=== PATIENT | male | born 1975 | race Caucasian/White ===

== ENCOUNTER 2022-11-23 15:34 | Outpatient (AMB) | payer BC, SELFPAY ==
[2022-11-23 15:45] VITALS: BP 132/98; PULSE 65; O2SAT 100; BMI 28.6
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
== END 2022-11-23 16:51 | disposition home or self-care (01) ==
PROVIDERS: PCP Nurse Practitioner Family; Visit Provider Nurse Practitioner Family
DX: F32.89 Other specified depressive episodes (principal); F41.9 Anxiety disorder, unspecified; R22.9 Localized swelling, mass and lump, unspecified; M25.522 Pain in left elbow; M54.2 Cervicalgia; M54.9 Dorsalgia, unspecified
CPT/HCPCS: 99204

== ENCOUNTER 2022-12-07 09:33 | Outpatient (REF) | payer BC, SELFPAY ==
--- NOTE | ~2022-12-07 | XR_ITS ---
EXAMINATION: XR ELBOW, LEFT CLINICAL INFORMATION: Pain COMPARISON: None available. TECHNIQUE: AP, lateral, and oblique views of the left elbow. FINDINGS: No acute fracture or dislocation. Joint spaces are maintained. Triceps tendon enthesopathy. Soft tissues are unremarkable. No joint effusion. XR/XR elbow LT min 3V IMPRESSION: Triceps tendon enthesopathy.
[2022-12-07 09:52] LABS: MANUAL DIFF FLAG NO
[2022-12-07 10:00] LABS: Basophils Percent Auto 0.5 % (0-2); Eosinophils Absolute Auto 0.2 X10*3/uL (0.0-0.4); Eosinophils Percent Auto 3.9 % (0-4); Hematocrit 42.4 % (42.0-52.0); Hemoglobin 14.5 g/dl (14.0-18.0); Imm Gran Abs Auto 0.02 X10*3/uL (0.00-0.03); Imm Gran Pct Auto 0.3 % (0.0-0.4); Lymphocytes Percent Auto 32.6 % (20-40); Mean Corpuscular HGB Conc 34.2 g/dl (31.0-36.0); Mean Corpuscular Volume 87.6 fL (80.0-98.0); Mean Platelet Volume 10.7 fL (9.4-12.4); Monocytes Absolute Auto 0.5 X10*3/uL (0.1-1.2); Neutrophils Absolute Auto 3.4 x10*3/uL (2.0-8.3); Neutrophils Percent Auto 54.7 % (45-73); Platelet Count 197 X10*3/uL (160-400); Red Blood Count 4.84 X10*6/uL (4.60-5.80); Red Cell Distribution Width 13.5 % (11.0-16.0); White Blood Count 6.1 X10*3/uL (4.8-10.8)
[2022-12-07 11:04] LABS: Alanine Aminotransferase 27 U/L (0-40); Albumin Level 4.1 g/dL (3.5-5.0); Alkaline Phosphatase 92 U/L (39-117); Anion Gap 10 (12-20); Aspartate Amino Transferase 27 U/L (5-37); Bilirubin Total 0.5 mg/dL (0.0-1.0); Blood Urea Nitrogen 8 mg/dL (9-16); Calcium 9.2 mg/dL (8.4-10.2); Carbon Dioxide 29 mmol/L (22-29); Chloride 106 mmol/L (96-108); Cholesterol 196 mg/dL; Estimated Glomerular Filt Rate > 60; Glucose Fasting 94 mg/dL (60-99); HDL Cholesterol 44 mg/dL; LDL Cholesterol Calculated 134 mg/dl; Potassium 4.4 mmol/L (3.3-5.1); Sodium 141 mmol/L (135-145); Triglycerides 92 mg/dL
[2022-12-07 11:09] LABS: TSH reflex Free T4 4.28 uIU/mL (0.32-4.0); Vitamin D 25-OH Total 49.8 ng/mL (>30)
[2022-12-07 11:28] LABS: Folate 11.2 ng/mL (> or = 4.0); Vitamin B12 832 pg/mL (200-900)
[2022-12-07 12:19] LABS: Free T4 (Free Thyroxine) 0.83 ng/dL (0.71-1.85)
== END 2022-12-07 09:34 | disposition home or self-care (01) ==
LOC: HO.XRAY 09:33
PROVIDERS: PCP Nurse Practitioner Family; Visit Provider Nurse Practitioner Family
DX: M25.522 Pain in left elbow (principal); Z76.89 Persons encountering health services in other specified circumstances; Z86.19 Personal history of other infectious and parasitic diseases; R94.6 Abnormal results of thyroid function studies; M47.812 Spondylosis without myelopathy or radiculopathy, cervical region; F32.A Depression, unspecified; F41.9 Anxiety disorder, unspecified
CPT/HCPCS: 36415; 73080; 80053; 80061; 82306; 82607; 82746; 84439; 84443; 85025

== ENCOUNTER 2022-12-11 15:49 | Outpatient (AMB) | payer BC, SELFPAY ==
--- NOTE | 2022-12-11 15:59 | MHC.OFFVIS ---
Intake Vital Signs 12/11/22 16:07 Height 6 ft Weight 212 lb 6 oz BMI 28.8 BP 139/86 Blood Pressure Location Lt brachial Position Sitting Pulse 68 Intake Visit Reasons: lipoma Intake Note: Patient is seen in office for evaluation and treatment of multiple lipoma. Patient c/o: multiple lipomas for yrs, bilateral hips, right forearm, right finger, couple in the stomach, most painful ones are the right hip and stomach, denies redness, discharge, swelling or any other concerns Manager Cafe Required: No Accompanied by: Self / Same As Patient Allergies Otezla Adverse Reaction (Severe, Uncoded 12/11/22 16:00) itching Medication List - Last Reconciled 12/11/22 by Manfred Chau MD cyclobenzaprine 5 mg PO TID PRN guselkumab (Tremfya) mg subcut hydrocodone-acetaminophen 10-325 mg tabs PO hydroxyzine HCl 10 mg PO TID PRN ibuprofen 600 mg PO Q8H PRN HPI lipoma HPI Details 47-year-old male referred for lipomas. He says that he has had lumps all over his body and had some removed in the past He points to a lipoma on the right forearm and the left and right hips and wants this removed because of the size. He denies any other complaints otherwise. [facility] Medical History (Updated 12/11/22 @ 16:12 by Manfred Chau MD) Fracture of T12 vertebra Fractured skull History of Lyme disease Lipoma Multiple lipomas Surgical History History of skin surgery Previous back surgery Family History Mother No problems noted. Father Hypertension Social History Housing: Apartment Patient Tobacco Use Status: Current everyday Tobacco user Cigarette Packs Per Day: 0.5 service: No Current occupational status: employed Cognitive needs: Yes Hearing needs: No Vision needs: No Review of Systems Const Denies chills and Denies fever(s) Card Denies chest pain, Denies dyspnea and Denies dyspnea on exertion Resp Denies cough, Denies dyspnea and Denies dyspnea on exertion GI Denies hematochezia and Denies change in bowel habits Denies hematuria and Denies difficulty urinating Musc Denies back pain and Denies limited range of motion Neuro Denies focal weakness and Denies convulsions Psych Denies depression and Denies mood swings Physical Exam Const General: comfortable and no acute distress Orientation/consciousness: patient oriented x3 Neck Neck: Yes no lymphadenopathy Resp Auscultation: clear to auscultation bilaterally Cardio Rhythm: regular rhythm GI Other: Right hip with a lipomatous mass, well-defined, about 3 cm in size. Left hip with a lipomatous mass, about 2 cm in size Palpation (GI): Soft to palpation, nontender and no guarding Neuro General: patient oriented x3 Extrem Other: Right forearm with the lipomatous mass, about 1.5 cm in size, well-defined Assessment & Plan Assessment & Plan (1) Multiple lipomas: Code(s): D17.9 - Benign lipomatous neoplasm, unspecified Plan: He wants the lipoma on the right forearm, and left and right hips removed. I explained to him the technique of excision. I reviewed the risks including but not limited bleeding, infections, poor healing, as the benefits and alternatives. This will be done under local anesthesia. This will be scheduled on his next visit here in the office. Coding Level of Care Code New Pt Level 3 (50781) Diagnoses Multiple lipomas D17.9
[2022-12-11 16:07] VITALS: BP 139/86; PULSE 68; BMI 28.8
== END 2022-12-11 16:18 | disposition home or self-care (01) ==
PROVIDERS: PCP Nurse Practitioner Family; Visit Provider Surgery
DX: D17.9 Benign lipomatous neoplasm, unspecified (principal)
CPT/HCPCS: 99203

== ENCOUNTER → 2022-12-11 15:49 | Outpatient (BNVA) | payer BC, SELFPAY | PROVIDERS: PCP Nurse Practitioner Family; Visit Provider Surgery ==

== ENCOUNTER 2022-12-18 14:19 | Outpatient (AMB) | payer BC, SELFPAY ==
--- NOTE | 2022-12-18 14:40 | MHC.OFFVIS ---
Intake Vital Signs 12/18/22 14:42 Height 6 ft Weight 212 lb BMI 28.7 BP 114/82 Blood Pressure Location Lt brachial Position Sitting Respiration 14 Pulse 70 Pulse Source Pulse Oximeter Pulse Oximetry (%) 96 Oxygen Delivery Method Room Air Intake Visit Reasons: Dorsalgia, unspecified Allergies Otezla Adverse Reaction (Severe, Uncoded 12/18/22 14:40) itching Medication List - Last Reconciled 12/18/22 by Nakia Irving LPN cyclobenzaprine 5 mg PO TID PRN guselkumab (Tremfya) mg subcut hydrocodone-acetaminophen 10-325 mg tabs PO hydroxyzine HCl 10 mg PO TID PRN ibuprofen 600 mg PO Q8H PRN HPI Dorsalgia, unspecified HPI Details 47-year-old male is presenting today for a new patient evaluation of Dorsalgia. The patient was referred by Kaela Cedeno. The patient?s medical history is significant for psoriasis (followed by [facility]), neck pain - Worker's Comps (worked at [employer] in [place] in 2010, followed by Dr. Field at [facility]), carpal tunnel syndrome of both sites, left elbow pain, anxiety, depression, and low back pain. His neck and back pain started in 2010. The pain is rated at 7-10/10 in intensity. It as an aching sensation in his neck, radiating to the left shoulder and numbness and pins and needles sensation in his left upper extremity. He also complains of aching and numbness associated with pins and needles sensation in his right hand and left lower extremity starting from the lower back. It is constant that interferes with his usual activities. He had three lumbar spine surgeries in 2000, 2019, 2020 and most recent was performed by Dr. Gaytan. The patient had epidural steroid injection in the past with minimal benefits. He has tried physical therapy in the past. He has mild numbness and paresthesia in his left toes and the 1st to 3rd fingers on both hands. The pain is worse with activity and occasionally when lying down. 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 The patient was on hydrocodone-acetaminophen P.R.N. prescribed by his past primary care physician. The patient has worker?s compensation insurance. [facility] Medical History (Updated 12/21/22 @ 14:34 by Alberto Cummings MD) Fracture of T12 vertebra Fractured skull History of Lyme disease Lipoma Multiple lipomas Surgical History History of skin surgery Previous back surgery Family History Mother No problems noted. Father Hypertension Social History Housing: Apartment Patient Tobacco Use Status: Current everyday Tobacco user Cigarette Packs Per Day: 0.5 service: No Current occupational status: employed Cognitive needs: Yes Hearing needs: No Vision needs: No Review of Systems Const All systems reviewed & are unremarkable except as noted in HPI and below Physical Exam Vital Signs: Last Vital Signs Pulse 70 12/18/22 14:42 Resp 14 12/18/22 14:42 BP 114/82 12/18/22 14:42 Pulse Ox 96 12/18/22 14:42 Oxygen Delivery Method Room Air 12/18/22 14:42 BMI result Body Mass Index 28.7 General: Appears afebrile. Alert and oriented. Mood and affect appropriate. Follows and participates in conversation appropriately. Respiratory effort is unlabored. Able to transition from sit to stand unassisted. Ambulates with bilaterally normal heel strike and toe off. Spine: Well-healed midline incision in the lumbar area. There was mild tenderness to palpation in the paraspinal area. Lumbar extension is intact without significant reduction of pain. Lumbar flexion reproduces reticular pain down the left lower extremity. Cervical neck extension reproduces mild pain. Facet loading on the left side reproduces pain. Facet loading on right side does not reproduces pain. Results Reviewed Results Reviewed: 12/07/22: XR ELBOW, LEFT FINDINGS: No acute fracture or dislocation. Joint spaces are maintained. Triceps tendon enthesopathy. Soft tissues are unremarkable. No joint effusion. IMPRESSION: Triceps tendon enthesopathy. 10/12/20: MR LUMBAR SPINE. 12/15/2019: MR - CERVICAL SPINE FINDINGS: ALIGNMENT, VERTEBRAE, MARROW, AND DISCS: There is slight reversal of the normal cervical lordosis without subluxation. Vertebral body heights are preserved. There is mild disc space narrowing at C5-6 and C6-7 with small anterior osteophytes, progressed since 2017. Bone marrow signal is normal. POSTERIOR FOSSA AND CORD: The visualized posterior fossa and cervicomedullary junction are normal. The cervical cord is normal in caliber and signal throughout. PARASPINAL TISSUES: Surrounding cervical soft tissues are normal. Flow voids are preserved in the dominant cervical vessels. DETAILED FINDINGS BY LEVEL: C2-C3: There is no canal or neural foraminal stenosis. C3-C4: There is a tiny central protrusion without significant canal stenosis. There is mild left neural foraminal stenosis from uncovertebral spurring. C4-C5: There is a tiny central protrusion without canal or neural foraminal stenosis. C5-C6: There is disc osteophyte asymmetric to the left causing mild canal stenosis. A left paracentral protrusion is also seen along with uncovertebral spurring resulting in moderate left neural foraminal stenosis, slightly worse than prior. The right neural foramen is patent. C6-C7: There is disc osteophyte asymmetric to the left causing mild canal stenosis. The right neural foramen is patent. There is severe left neural foraminal stenosis due to uncovertebral spurring with probably compression of the exiting left C7 nerve root. This is worse than prior. C7-T1: There is no canal or neural foraminal stenosis. IMPRESSION: 1. Degenerative changes at C5-6 and C6-7 have progressed since 11/01/2016 with mild canal stenosis at both levels. There is moderate left neural foraminal stenosis at C5-6 and severe left neural foraminal stenosis at C6-7 with probable compression of the exiting left C7 nerve root. Assessment & Plan Assessment & Plan (1) Cervical spondylosis: Code(s): M47.812 - Spondylosis without myelopathy or radiculopathy, cervical region Plan Discussed diagnostic injections vs. RFA vs. peripheral nerve stimulators as possible treatment options. Will schedule him for left C4-C5-C6 medial branch block. Discussed the risks and benefits of the procedure with the patient in detail. All questions were answered. The patient is on board with the plan. We will file a PA for approval and keep him updated. Justification for interventional therapy: ? Patient with average pain > 6/10 ? Patient has exhausted conservative therapy including physical therapy, oral medication, opioid therapy, steroid injections, and surgical interventions. Scribed for Dr. Cummings by Jose Lackey medical device sales consultant, on 12/18/2022. I, Dr. Cummings, have personally reviewed and agree with the information entered by the [facility]. Coding Level of Care Code New Pt Level 4 (54149) Diagnoses Cervical spondylosis M47.812
[2022-12-18 14:42] VITALS: BP 114/82; PULSE 70; RESP 14; O2SAT 96; BMI 28.7
== END 2022-12-18 15:02 | disposition home or self-care (01) ==
PROVIDERS: PCP Nurse Practitioner Family; Visit Provider Internal Medicine
DX: M47.812 Spondylosis without myelopathy or radiculopathy, cervical region (principal)
CPT/HCPCS: 99204

== ENCOUNTER → 2022-12-18 14:19 | Outpatient (BNVA) | payer BC, SELFPAY | PROVIDERS: PCP Nurse Practitioner Family; Visit Provider Internal Medicine ==

== ENCOUNTER 2023-01-12 14:20 | Outpatient (AMB) | payer BC, SELFPAY ==
[2023-01-12 14:23] VITALS: BMI 28.7
--- NOTE | 2023-01-12 14:23 | A.OFFVIS_ITS ---
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 Patient recall he fell 2 yrs ago and felt something pull. He didn't seek medical care. Currently states his pain is in his lateral and medial aspect of elbow. States pain is triggered with heavy lifting and over use. At times his elbow feels itchy. Denies any past injection or therapy. 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 The patient was see by his PCP on 11/23/2022 where he reports chronic left elbow pain for 7 months, since 04/2022, with no known injury. While in the office today he states that about 2 years ago (2020) he felt something pull in his left elbow. At the time he did not seek medical attention. He reports his pain is on the medial and lateral aspect of the left elbow. He claims his pain is triggered by heavy lifting and over use of the left upper extremity. He states his elbow feels itchy. He denies a history of cortisone injections or physical therapy. [facility] Medical History (Updated 01/12/23 @ 14:53 by Lacey Lopez) Multiple lipomas Lipoma History of Lyme disease Fractured skull Fracture of T12 vertebra Surgical History History of skin surgery Previous back surgery Family History Mother No problems noted. Father Hypertension Social History (Updated 01/12/23 @ 14:31 by [facility] Housing: Apartment Patient Tobacco Use Status: Current everyday Tobacco user Cigarette Packs Per Day: 0.5 service: No Current occupational status: employed Current occupation: [employer]/ rt hand Cognitive needs: Yes Hearing needs: No Vision needs: No Review of Systems Const All systems reviewed & are unremarkable except as noted in HPI and below Physical Exam Vital Signs: BMI result Body Mass Index 28.7 Const General: cooperative and no acute distress Orientation/consciousness: patient oriented x3 Resp Effort & Inspection: normal respiratory effort and able to speak in complete s entences Cardio Rate: regular rate Peripheral pulses: Peripheral pulses 2+ throughout GI Palpation (GI): Soft to palpation Skin General skin exam: no rashes or lesions noted Lesions: no lesions Rashes: no rashes Neuro General: patient oriented x3 Extrem Other: Left elbow normal to inspection. No acchymosis, erythema, edema. Lateral epicondyle tenderness to palpation. Mild medial epicondyle. No laxity with varus or valgus stress. Full ROM. NVI. Office Procedures Joint Injection/Drain Joint Injection/Drain Primary Site: left tennis elbow Prep: site was prepped using aseptic technique, ethochloride spray was applied and injection warnings given Injected: 40 mg of, DepoMedrol and with 1 mL of (2% plain lido ) Approach Used: other (lateral ) Procedure: The patient tolerated the procedure well, but had some pain with the injection and there was some relief with the local anesthesia Coding 31548 - Epicondyle Procedure code (CPT) selection complete Results Reviewed Results Reviewed: 01/12/23 14:37 Lidocaine HCl 1 % [Xylocaine 1 %] 2 ml .ROUTE .STK-MED ONE methylPREDNISolone acetate [DEPO-MedroL] 40 mg .ROUTE .STK-MED ONE Assessment & Plan Assessment & Plan (1) Left lateral epicondylitis: Code(s): M77.12 - Lateral epicondylitis, left elbow Plan Mr. Spears is a 48-year-old right hand dominant male who presents in the office today, as a new patient, for an evaluation of left elbow pain. The patient was see by his PCP on 11/23/2022 where he reports chronic left elbow pain for 7 months, since 04/2022, with no known injury. While in the office today he states that about 2 years ago (2020) he felt something pull in his left elbow. At the time he did not seek medical attention. He reports his pain is on the medial and lateral aspect of the left elbow. He claims his pain is triggered by heavy lifting and over use of the left upper extremity. He states his elbow feels itchy. He denies a history of cortisone injections or physical therapy. The patient was offered a cortisone injection in the left elbow with 40 mg of DepoMedrol. The patient was explained the risk, benefits, and alternatives to receiving this injection. After receiving consent for the injection, the patient had the procedure done while in office today. The patient tolerated the procedure well with no complications. The patient has tried the tennis elbow brace with little relief. I educated the patient on activity modification. Follow up will be PRN, or sooner if needed. X-rays of the left elbow, obtained on 12/07/2022, which were reviewed by me in the office today, revealed: No acute fracture or dislocation. Small bone spur located along the olecranon at the triceps tendon attachment. Patient Instructions: Scribed for Olga Hagan PA-C by Lacey Lopez medical radiation therapist, on 01/12/2023 at 2:23 pm, EST. Coding Level of Care Code New Pt Level 4 (89003) Diagnoses Left lateral epicondylitis M77.12 CPT Codes Coding - Joint 2: 62832 - Epicondyle ([id number])
== END 2023-01-12 14:48 | disposition home or self-care (01) ==
PROVIDERS: PCP Nurse Practitioner Family; Visit Provider Physician Assistant
DX: M77.12 Lateral epicondylitis, left elbow (principal)
CPT/HCPCS: 20551; 99204

== ENCOUNTER → 2023-01-12 14:20 | Outpatient (BNVA) | payer BC, SELFPAY | PROVIDERS: PCP Nurse Practitioner Family; Visit Provider Physician Assistant | DX: M77.12 Lateral epicondylitis, left elbow (principal) | CPT/HCPCS: 20551; J1020 ==

== ENCOUNTER 2023-01-23 16:23 | Outpatient (AMB) | payer BC, SELFPAY ==
[2023-01-23 16:24] VITALS: BP 122/80; PULSE 65; O2SAT 98; BMI 28.8
--- NOTE | 2023-01-23 16:24 | A.OFFPC_ITS ---
Vital Signs 01/23/23 16:24 Height 6 ft Weight 212 lb 0.4 oz BMI 28.8 BP 122/80 Blood Pressure Location Lt brachial Position Sitting Pulse 65 Pulse Source Pulse Oximeter Temp Source Skin Pulse Oximetry (%) 98 Oxygen Delivery Method Room Air Intake Visit Reasons: PE Intake Note: Patient is here today for a physical. 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 Allergies Otezla Adverse Reaction (Severe, Uncoded 01/23/23 16:44) itching Medication List - Last Reconciled 01/23/23 by ALCIRA Bourne cyclobenzaprine 5 mg PO TID PRN guselkumab (Tremfya) mg subcut hydroxyzine HCl 10 mg PO TID PRN ibuprofen 600 mg PO Q8H PRN Tobacco use date assessed: 01/23/23 Dental Screening Dental Screen Date: 01/23/23 Did you have a dental visit in the last 12 months?: Yes Did you have a dental problem in the last 6 months where you did not have access to dental care?: No Was dental information given to patient?: Patient has dentist HPI PE HPI Details Patient is a 48-year-old male presents today for physical exam. Medical history significant for psoriasis-followed by [facility], neck pain - worker's comp (worked at [employer] in [place]) [address] Field at [facility] and now followed by [facility], back pain-followed by [facility], will be having body lipomas removed soon by General surgery in [place], anxiety, depression, elevated TSH. Today we discussed patient's need for colon cancer screening and tetanus vaccine. Patient reports smoking half a pack per day for the past 30 years and interested in smoking cessation. Reports he does not drink alcohol on week days, no need for help for alcohol cessation. In addition, patient reports epigastric pain for the past some time, no acid reflux, reports intermittent nausea sensation, no vomiting. Reports snoring at night and feeling tired during the day for the past some time now. Up-to-date with eye and dental exams. In addition, patient reports yellow/green nasal discharge for the past couple weeks, also reports sinus pain. No shortness of breath or chest pain in the office today. [facility] Medical History Encounter to establish care Multiple lipomas Lipoma History of Lyme disease Fractured skull Fracture of T12 vertebra Surgical History History of skin surgery Previous back surgery Family History Mother No problems noted. 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 1. Little interest or pleasure in doing things: several days 2. Feeling down, depressed, or hopeless: more than half the days 3. Trouble falling or staying asleep, or sleeping too much: nearly every day 4. Feeling tired or having little energy: nearly every day 5. Poor appetite or overeating: several days 6. Feeling bad about yourself - or that you are a failure or have let yourself or your family down: not at all 7. Trouble concentrating on things, such as reading the newspaper or watching television: nearly every day 8. Moving or speaking so slowly that other people could have noticed. Or the opposite - being so fidgety or restless that you have been moving around a lot more than usual: several days 9. Thoughts that you would be better off or of hurting yourself in some way: not at all Total score: 14 Depression Screening Interpretation: Positive Depression Screening Follow-up: Declines treatment Depression Screening Done: Yes 35064 - PHQ-9 Billing: Yes Source: Developed by Drs. Erasmo Lobato, Nae Little, Mitesh Frank and colleagues, with an educational len from [employer]. Thrive Questionnaire Date Thrive assessed: 11/23/22 AUDIT C Alcohol Use Questionnaire (AUDIT-C) 1. How often do you have a drink containing alcohol?: 2-4 times a month 2. How many drinks containing alcohol do you have on a typical day when you are drinking?: 5 or 6 3. How often do you have six or more drinks on one occasion?: Less than monthly Total Score: 5 Score Reviewed/Action Taken: Yes CHAD-7 AMB Questionnaire CHAD-7 Date CHAD - 7 assessed: 11/23/22 Feeling nervous, anxious, or on edge: 3 = Nearly every day Not being able to stop or control worryin = Nearly every day Worrying too much about different things: 3 = Nearly every day Trouble relaxin = More than half the days Being so restless that it is hard to sit still: 0 = Not at all Becoming easily annoyed or irritable: 3 = Nearly every day Feeling afraid as if something awful might happen: 0 = Not at all Total CHAD-7 score (0-4 normal; 5-9 mild; 10-14 moderate; 15-21 severe): 14 Source: Developed by Drs. Erasmo Lobato, Nae Little, Mitesh Frank and colleagues, with an educational len from [employer]. CHAD-7 Assessment Billing CHAD-7 Assessment Tool: CHAD-7 Assessment 56984 Review of Systems Const Denies body aches, Denies chills, Reports fatigue, Denies fever(s) and Denies headache(s) Eyes Denies change in vision ENT Denies dizziness, Denies otalgia, Denies headache(s), Reports nasal discharge, Reports sinus pain and Denies sore throat Card Denies chest pain, Denies edema, Denies lightheadedness and Denies dyspnea Resp Denies cough and Denies dyspnea GI Denies constipation, Denies diarrhea, Denies nausea and Denies vomiting Denies dysuria Musc Reports back pain, Denies myalgias, Reports arthralgias, Denies joint swelling, Reports numbness and Reports tingling Skin/Breast Denies rash Neuro Denies dizziness, Denies headache(s), Reports numbness and Reports tingling Endo Reports fatigue Physical exam (Primary Care) Vital Signs: Last Vital Signs Pulse 65 01/23/23 16:24 BP 122/80 01/23/23 16:24 Pulse Ox 98 01/23/23 16:24 Oxygen Delivery Method Room Air 01/23/23 16:24 BMI result Body Mass Index 28.8 Tobacco/Smoking Status: Tobacco use Status Tobacco use date assessed 01/23/23 01/23/23 16:25 Patient Tobacco Use Status Current everyday Tobacco 01/23/23 16:25 PHQ-9: PHQ-9 Score PHQ-9: Total score 14 01/23/23 16:46 Depression Screening Interpretation: Positive Depression Screening Follow-up: Declines treatment Thrive Assessment: Date of Thrive Assessment Date Thrive assessed 11/23/22 01/23/23 16:25 Const General: cooperative and no acute distress Orientation/consciousness: patient oriented x3 HENMT Head: Yes normocephalic and Yes atraumatic Ears: TM's normal bilaterally Face and sinus: Yes sinuses nontender Mouth: oropharynx normal and moist mucous membranes Throat: Yes posterior oropharynx normal Eyes General: appearance normal, both eyes and all related structures Pupils: Equal, round and reactive pupils present EOM: EOMs intact bilaterally Neck Neck: Yes normal visual inspection, Yes full ROM and Yes no lymphadenopathy Thyroid: Thyroid normal Resp Effort & Inspection: normal respiratory effort and able to speak in complete sentences Auscultation: clear to auscultation bilaterally, no crackles, no rales, no rhonchi and no wheezes Cardio Rate: regular rate Rhythm: regular rhythm Heart sounds: S1 normal heart sound present, S2 normal heart sound present and no murmurs GI Palpation (GI): Soft to palpation, not firm, Tenderness to palpation present (GI) with no rebound tenderness, no guarding, not rigid and no hepatosplenomegaly Auscultation: normal bowel sounds General: No CVA tenderness Back/Spine/Pelvis Back: No CVA tenderness Skin General skin exam: no rashes or lesions noted Neuro General: patient oriented x3 Cranial nerves: Yes Equal, round and reactive pupils present Gait exam (Neuro): Normal gait present Extrem General: Yes full ROM and No edema Office Procedures Flu Questionnaire Does the patient have a severe egg allergy?: No Does the patient have severe life threatening allergies?: No Does the patient have a fever or illness today?: No Has the patient ever had Guillain-Alfred Station Syndrome?: No Has the patient ever had any past reaction to a flu shot?: No Immunizations flu vacc [id number] 6mos up(PF) 60 mcg(15 mcgx4)/0.5 mL IM syringe Performing Provider: ALCIRA Bourne Performing Location: [facility] Primary [facility] Documented (not given) by: MED Cordova on 01/23/23 16:30 Reason Not Given: Patient Refused Boostrix Tdap 2.5 Lf unit-8 mcg-5 Lf/0.5 mL intramuscular syringe Performing Provider: ALCIRA Bourne Performing Location: [facility] Adult [facility] Administered by: AV Yuen on 01/23/23 17:11 Dose Route Admin Location Dispensed Lot Number Expiration Date NDC Mock Up Builder 0.5 mL IM Left Deltoid 0.5 mL [id number] 03/28/25 92614-356-57 [employer] VIS Given Date VIS Provided VIS Publication Date 01/23/23 Single Vaccine 20 Eligibility Eligibility Date Funding Source Not [facility] Eligible 01/23/23 Private Adacel(Tdap Adolesn/Adult)(PF) 2 Lf-(2.5-5-3-5)-5 Lf/0.5 mL IM syringe Performing Provider: ALCIRA Bourne Performing Location: [facility] Adult Primary [facility] Documented (not given) by: AV Yuen on 01/23/23 17:08 Reason Not Given: Not Given Assessment and Plan Assessment & Plan (1) Depression: Code(s): F32.A - Depression, unspecified Qualifiers: Depression Type: other depression Qualified Code(s): F32.89 - Other specified depressive episodes Plan: Denies referral to counseling (2) Anxiety: Code(s): F41.9 - Anxiety disorder, unspecified Plan: Continue hydroxyzine 10 mg t.i.d. p.r.n.-educated about drowsiness (3) Sinusitis: Code(s): J32.9 - Chronic sinusitis, unspecified Plan: Start Z-Casey Follow-up if no improvement after finishing antibiotic (4) Nicotine dependence: Comment: Smoke 1/2 ppd x 30 years Code(s): F17.200 - Nicotine dependence, unspecified, uncomplicated Plan: Start nicotine patch (5) Epigastric pain: Code(s): R10.13 - Epigastric pain Plan: ? Gastritis Start omeprazole 20 mg daily Avoid acidic foods Do not lay down 2-3 hours after evening meal Follow-up if no improvement after finishing omeprazole (6) Hypersomnia: Code(s): G47.10 - Hypersomnia, unspecified Plan: Home sleep study ordered to rule out sleep apnea (7) Adult general medical exam: Code(s): Z00.00 - Encounter for general adult medical examination without abnormal findings (8) Elevated TSH: Code(s): R79.89 - Other specified abnormal findings of blood chemistry Plan: TSH 4.28, free T4 0.83 11/2022 - patient has blood work order for repeat thyroid studies (9) Screening for colon cancer: Code(s): Z12.11 - Encounter for screening for malignant neoplasm of colon Orders: Orders TDaP State Immunization Today Z00.00 - Encounter for general adult medical examination without abnormal findings, Z23 - Encounter for immunization Influenza [id number] Immunization Today Z23 - Encounter for immunization RT home sleep study Today G47.10 - Hypersomnia, unspecified TDaP Immunization Today Z23 - Encounter for immunization Referrals Open Access Screening Colonoscopy Referral Z12.11 - Encounter for screening for malignant neoplasm of colon, Z12.12 - Encounter for screening for malignant neoplasm of rectum Medications: New omeprazole 20 mg PO DAILY 30 caps 0RF R10.13 - Epigastric pain nicotine 1 patch transdermal DAILY 28 ea 1RF F17.200 - Nicotine dependence, unspecified, uncomplicated azithromycin take 500 mg today (day 1), then 250 mg for 4 days (days 2-5) PO 6 tabs 0RF J32.9 - Chronic sinusitis, unspecified Coding Level of Care Code Est Pt Prev Care 40-64y(77109) Diagnoses Other depression F32.89 Depression Type: other depression Anxiety F41.9 Sinusitis J32.9 Nicotine dependence F17.200 Epigastric pain R10.13 Hypersomnia G47.10 Adult general medical exam Z00.00 Elevated TSH R79.89 Screening for colon cancer Z12.11 Additional Codes CHAD-7 Assessment Billing - CHAD-7 Assessment Tool: CHAD-7 Assessment 61075 ([id number])
== END 2023-01-23 17:23 | disposition home or self-care (01) ==
PROVIDERS: PCP Nurse Practitioner Family; Visit Provider Nurse Practitioner Family
DX: Z23 Encounter for immunization (principal); Z00.00 Encounter for general adult medical examination without abnormal findings
CPT/HCPCS: 90471; 90472; 90686; 90715; 99396

== ENCOUNTER 2023-01-25 14:15 | Outpatient (REF) | payer BC, SELFPAY | END 2023-01-25 14:16 | disposition home or self-care (01) | LOC: HO.LNP 14:15 | PROVIDERS: PCP Nurse Practitioner Family; Visit Provider Surgery | DX: D17.1 Benign lipomatous neoplasm of skin and subcutaneous tissue of trunk (principal); D17.21 Benign lipomatous neoplasm of skin and subcutaneous tissue of right arm | CPT/HCPCS: 11403; 88304 ==

== ENCOUNTER 2023-01-25 14:15 | Outpatient (AMB) | payer BC, SELFPAY ==
--- NOTE | 2023-01-25 14:24 | MHC.OFFVIS ---
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 The area of the lipoma on the right forearm was prepped and draped. Lidocaine 1% was used for local anesthesia. I made an incision on the skin using a blade 15. This was carried down through the full-thickness of the skin into the subcutaneous layer until the lipomas visualized. The lipoma sharply dissected off of the rest of the subcutaneous layer until was delivered. This was sent as a specimen. This lipoma on the right forearm was about 2 cm in diameter. The incision was closed with full-thickness nylon 3-0 interrupted sutures. We then proceeded prep and drape the area of the lipoma on the right hip. Lidocaine 1% was used for local anesthesia. I made the incision on the skin overlying the lipoma with a blade 15. This was carried down through the full-thickness of the skin and subcutaneous fat until the lipoma was visualized. The lipoma sharply dissected with scissors until this was delivered and sent as specimen. This measured about 3 cm in size. I closed the incision with full-thickness nylon 3-0 simple interrupted sutures. I then proceeded to prep and drape the area of the lipoma on the left hip. Lidocaine 1% was used for local anesthesia. The incision on the skin using a blade 15.This was carried down through the full-thickness of the skin until the lipoma was visualized. This was sharply dissected with scissors until this was delivered. This was sent as specimen. Lengths lipoma measured about 2 cm in size. I closed the incision with full-thickness nylon 3-0 simple interrupted sutures Band-Aids were applied to all incisions. Was given wound care instruction 99688-crvph/arms/legs 1.1-2cm (Right forearm lipoma about 2 cm in size; left hip lipoma about 2 cm in size) [id number]-losjo/arms/legs 2.1-3cm (Right hip lipoma about 3 cm in size) Procedure code (CPT) selection complete Assessment & Plan Assessment & Plan (1) Multiple lipomas: Code(s): D17.9 - Benign lipomatous neoplasm, unspecified Plan: He had 3 lipomas removed as described above. He was given wound care instructions. He will be seen in the office for removal of sutures. Coding Level of Care Code Procedure Only Diagnoses Multiple lipomas D17.9 CPT Codes Trunk/Arms/Legs - CPT: 99049-pnixe/arms/legs 1.1-2cm ([id number]) Trunk/Arms/Legs - CPT: 86205-enktk/arms/legs 2.1-3cm ([id number])
[2023-01-25 14:58] VITALS: BP 126/77; PULSE 78
== END 2023-01-25 14:58 | disposition home or self-care (01) ==
PROVIDERS: PCP Nurse Practitioner Family; Visit Provider Surgery
DX: D17.23 Benign lipomatous neoplasm of skin and subcutaneous tissue of right leg (principal); D17.21 Benign lipomatous neoplasm of skin and subcutaneous tissue of right arm; D17.24 Benign lipomatous neoplasm of skin and subcutaneous tissue of left leg
CPT/HCPCS: 11403

== ENCOUNTER 2023-02-14 15:40 | Outpatient (AMB) | payer BC, SELFPAY ==
--- NOTE | 2023-02-14 15:41 | MHC.OFFVIS ---
Intake Intake Visit Reasons: S/P exc 2 lipomas Intake Note: This patient presents for a post-op assessment status post excision of multiple lipomas. Patient c/o; reports no complaints at this time. 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 He tolerated the procedures well. He is here for postop visit. [facility] Medical History Encounter to establish care Multiple lipomas Lipoma History of Lyme disease Fractured skull Fracture of T12 vertebra Surgical History Status post excision of lipoma (~01/25/23) History of skin surgery Previous back surgery Family History Mother No problems noted. 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 Cognitive needs: Yes Hearing needs: No Vision needs: No Review of Systems Const Denies chills and Denies fever(s) Card Denies chest pain, Denies dyspnea and Denies dyspnea on exertion Resp Denies cough, Denies dyspnea and Denies dyspnea on exertion GI Denies hematochezia and Denies change in bowel habits Denies hematuria and Denies difficulty urinating Musc Denies back pain and Denies limited range of motion Neuro Denies focal weakness and Denies convulsions Psych Denies depression and Denies mood swings Physical Exam Const General: comfortable and no acute distress Resp Effort & Inspection: normal respiratory effort Skin Other: All excision sites are well healed and not infected Assessment & Plan Assessment & Plan (1) Multiple lipomas: Code(s): D17.9 - Benign lipomatous neoplasm, unspecified Plan: Status post excision of lipomas from the left and right hips, and the right forearm. All incisions are well healed. I removed all his sutures. His path report shows lipomas on all 3 areas. He can follow up on a p.r.n. basis. Coding Level of Care Code Global (70136) Diagnoses Multiple lipomas D17.9
== END 2023-02-14 15:51 | disposition home or self-care (01) ==
PROVIDERS: PCP Nurse Practitioner Family; Visit Provider Surgery
DX: D17.9 Benign lipomatous neoplasm, unspecified (principal)
CPT/HCPCS: 99024

== ENCOUNTER → 2023-02-14 15:40 | Outpatient (BNVA) | payer BC, SELFPAY | PROVIDERS: PCP Nurse Practitioner Family; Visit Provider Surgery ==

== ENCOUNTER → 2023-03-08 15:44 | Outpatient (REF) | payer BC, SELFPAY | LOC: HO.SL 15:44 | PROVIDERS: Visit Provider Nurse Practitioner Family | DX: G47.10 Hypersomnia, unspecified (principal) | CPT/HCPCS: 95806 ==

== ENCOUNTER → 2023-03-08 16:01 | Outpatient (BNV) | payer BC, SELFPAY | PROVIDERS: Visit Provider Psychiatry & Neurology Neurology | DX: R06.83 Snoring (principal) | CPT/HCPCS: 95806 ==

== ENCOUNTER 2023-06-07 10:57 | Outpatient (AMB) | payer BC, SELFPAY ==
--- NOTE | 2023-06-07 11:06 | A.OFFPC_ITS ---
Vital Signs 06/07/23 11:09 Height 6 ft Weight 216 lb BMI 29.3 BP 110/70 Blood Pressure Location Lt brachial Position Sitting Pulse 62 Pulse Source Pulse Oximeter Pulse Oximetry (%) 98 Oxygen Delivery Method Room Air Intake Visit Reasons: TC Kaela/back pain Intake Note: Patient is here today for Transfer of Care from . Patient is here to follow up on Back pain. Motion Study Technician Required: No Clinical Education Academic Coordinator: Not Required per policy Accompanied by: Self / Same As Patient Allergies Otezla Adverse Reaction (Severe, Uncoded 06/07/23 13:31) itching Medication List - Last Reconciled 06/07/23 by David Keller MD cyclobenzaprine 10 mg PO BEDTIME guselkumab (Tremfya) mg subcut ibuprofen 600 mg PO Q8H PRN meloxicam 15 mg PO DAILY nicotine 1 patch transdermal DAILY Tobacco use date assessed: 06/07/23 Dental Screening Dental Screen Date: 06/07/23 Did you have a dental visit in the last 12 months?: Yes Did you have a dental problem in the last 6 months where you did not have access to dental care?: No Was dental information given to patient?: Patient has dentist HPI TC Kaela/back pain HPI Details 48-year-old male presents to the office to discuss his medical problems. I am assuming his care after I will be assuming his care as his provider has left the practice. Patient reports that he is experiencing spasms in the lower back. He has had multiple back surgeries in the past. 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 He also has carpal tunnel entrapment in both hands and would like to see an orthopedic surgeon. Patient gives history of psoriasis for which he takes a biological. [facility] Medical History Encounter to establish care Multiple lipomas Lipoma History of Lyme disease Fractured skull Fracture of T12 vertebra Surgical History Status post excision of lipoma (~01/25/23) History of skin surgery Previous back surgery Family History Mother No problems noted. Father Hypertension Social History Housing: Apartment Alcohol intake: current Alcohol intake frequency: a few times a week Patient Tobacco Use Status: Current everyday Tobacco user Tobacco use type: Cigarette Cigarette Packs Per Day: 0.5 Cigarettes Per Day: 10 e-Cigarette/Vaping Use: Never Used Second Hand Smoke Exposure: Yes service: No Current occupational status: employed Current occupation: [employer]/ rt hand Cognitive needs: Yes Hearing needs: No Vision needs: No Questionnaire PHQ-9 Over the last 2 weeks, how often have you been bothered by any of the following problems? 1. Little interest or pleasure in doing things: several days 2. Feeling down, depressed, or hopeless: several days 3. Trouble falling or staying asleep, or sleeping too much: several days 4. Feeling tired or having little energy: several days 5. Poor appetite or overeating: several days 6. Feeling bad about yourself - or that you are a failure or have let yourself or your family down: not at all 7. Trouble concentrating on things, such as reading the newspaper or watching te levision: several days 8. Moving or speaking so slowly that other people could have noticed. Or the opposite - being so fidgety or restless that you have been moving around a lot more than usual: several days 9. Thoughts that you would be better off or of hurting yourself in some way: not at all Total score: 7 Depression Screening Interpretation: Positive Depression Screening Follow-up: Existing condition Depression Screening Done: Yes Source: Developed by Drs. Erasmo Lobato, Nae Little, Mitesh Frank and colleagues, with an educational len from [employer]. Thrive Questionnaire Date Thrive assessed: 06/07/23 I am a: Patient What is your living situation today?: I have a steady place to live Within the past 12 months, did the food you bought not last and you didn't have the money to get more?: Never true Within the past 12 months, did you worry whether your food would run out before you got money to buy more?: Never true Do you have trouble paying for medicines?: No Do you have trouble getting transportation to medical appointments?: No Do you have trouble paying your heating and electricity bill?: No Do you have trouble taking care of your child, family member or friend?: No Do you have trouble with day-to-day activities such as bathing, preparing meals, shopping, managing finances, etc.?: No Are you currently unemployed and looking for a job?: No Are you interested in more education?: No Currently or been in a relationship where the following occur: no concerns reported THRIVE Score: 0 AUDIT C Alcohol Use Questionnaire (AUDIT-C) 1. How often do you have a drink containing alcohol?: 2-4 times a month 2. How many drinks containing alcohol do you have on a typical day when you are drinking?: 1 or 2 Total Score: 2 CHAD-7 AMB Questionnaire CHAD-7 Date CHAD - 7 assessed: 06/07/23 Feeling nervous, anxious, or on edge: 1 = Several days Not being able to stop or control worryin = Not at all Worrying too much about different things: 0 = Not at all Trouble relaxin = Several days Being so restless that it is hard to sit still: 0 = Not at all Becoming easily annoyed or irritable: 1 = Several days Feeling afraid as if something awful might happen: 0 = Not at all Total CHAD-7 score (0-4 normal; 5-9 mild; 10-14 moderate; 15-21 severe): 3 Source: Developed by Drs. Erasmo Lobato, Nae Little, Mitesh Frank and colleagues, with an educational len from [employer]. Physical exam (Primary Care) Vital Signs: Last Vital Signs Pulse 62 06/07/23 11:09 BP 110/70 06/07/23 11:09 Pulse Ox 98 06/07/23 11:09 Oxygen Delivery Method Room Air 06/07/23 11:09 Care Plan Goal for BP management: Blood pressure is in range. BMI result Body Mass Index 29.3 Tobacco/Smoking Status: Tobacco use Status Tobacco use date assessed 06/07/23 06/07/23 11:17 Patient Tobacco Use Status Current everyday Tobacco 06/07/23 11:17 Tobacco use type Cigarette 06/07/23 11:17 e-Cigarette/Vaping Use Never Used 06/07/23 11:17 Are you ready to quit: No PHQ-9: PHQ-9 Score PHQ-9: Total score 7 06/07/23 11:17 Depression Screening Interpretation: Positive Depression Screening Follow-up: Existing condition Thrive Assessment: Date of Thrive Assessment Date Thrive assessed 06/07/23 06/07/23 11:17 Currently or been in a relationship where the following occur: no concerns reported Const General: cooperative and healthy appearing Nutritional Appearance: well nourished Orientation/consciousness: patient oriented x3 Limitations: no limitations HENMT Head: Yes normal to inspection Eyes General: appearance normal, both eyes and all related structures Neck Neck: Yes normal visual inspection Chest Chest palpation & inspection: normal palpation of entire chest wall Resp Effort & Inspection: normal respiratory effort Neuro General: patient oriented x3 Assessment and Plan Assessment & Plan (1) Carpal tunnel syndrome on both sides: Code(s): G56.03 - Carpal tunnel syndrome, bilateral upper limbs Plan: Orthopedic consult has been requested. (2) Nicotine dependence: Comment: Smoke 1/2 ppd x 30 years Code(s): F17.200 - Nicotine dependence, unspecified, uncomplicated Plan: Encouraged to quit smoking. (3) Back pain: Code(s): M54.9 - Dorsalgia, unspecified Plan: Cyclobenzaprine and meloxicam have been added to the regimen. Patient was encouraged to do stretching exercises. Follow-up here if symptoms do not improve. Orders: Referrals Orthopedics Referral G56.03 - Carpal tunnel syndrome, bilateral upper limbs Medications: New cyclobenzaprine 10 mg PO BEDTIME 14 tabs 0RF meloxicam 15 mg PO DAILY 14 tabs 0RF Coding Level of Care Code Est Pt Level 4 (26326) Diagnoses Carpal tunnel syndrome on both sides G56.03 Nicotine dependence F17.200 Back pain M54.9
[2023-06-07 11:09] VITALS: BP 110/70; PULSE 62; O2SAT 98; BMI 29.3
== END 2023-06-07 11:31 | disposition home or self-care (01) ==
PROVIDERS: PCP Internal Medicine; Visit Provider Internal Medicine
DX: G56.03 Carpal tunnel syndrome, bilateral upper limbs (principal); F17.200 Nicotine dependence, unspecified, uncomplicated; M54.9 Dorsalgia, unspecified
CPT/HCPCS: 99214

== ENCOUNTER 2023-06-07 15:22 | Outpatient (AMB) | payer BC, SELFPAY ==
--- NOTE | 2023-06-07 15:40 | A.OFFVIS_ITS ---
Intake Vital Signs 06/07/23 15:47 Height 6 ft Weight 216 lb BMI 29.3 BP 120/70 Blood Pressure Location Lt brachial Position Sitting Pulse 65 Pulse Source Pulse Oximeter Pulse Oximetry (%) 96 Oxygen Delivery Method Room Air Intake Visit Reasons: I-PRODUCTION ADMINISTRATOR: Hypersomnia - LVM Intake Note: Patient presents for f/u. Allergies Otezla Adverse Reaction (Severe, Uncoded 06/07/23 13:31) itching HPI HPI Comments History of Present Illness Details 48 y/o male patient presents for new in- person visit for sleep consultation. Pt reports difficulty staying sleep, wakes up several times at night. He had a home sleep study, but it was inconclusive, he stay awake most of the night. Pt also reports daytime sleepiness. He feels always tired, and doze off during daytime. He reports depression and anxiety. He smoke 10 cigarets a day with marijuana. Sleep questionnaire: Have you ever been diagnosed with a sleep disorder? No. Have you ever had a sleep study in the past? Yes, home sleep study, Have you ever been treated for a sleep disorder? No. Do you take medications for a sleep disorder? No. Do you snore? Yes. Do you wake up gasping at night? Yes. Do you have episodes of apneas? No. If yes, are they witnessed? No. Do you have episodes of nocturnal chest pain or dyspnea? Yes. Do you have difficulty initiating sleep? No. Do you have difficulty maintaining sleep? Yes. Do you wake up tired? Yes. Do you have headaches upon awakening? Yes. Do you wake up with dry mouth or throat? Yes. Do you have GERD? Yes, sometimes. Do you have nocturia? Not really, usually once at night. Do you have nocturnal leg cramps? Yes. Do you have symptoms of restless legs? Yes, all the time. Do you act out your dreams? No. Sleep hygiene questionnaire: What is your usual sleep routine? Usual bedtime is at 9 pm ; Usual wake up time is at 4 am. Do you take naps? No. Is your sleep environment cool, dark, and quiet? Yes. Do you exercise? No. Do you take caffeine or other stimulants? Soda and smoking. Do you use electronics in bed? No. What is your work schedule? 5 am to 3:30 pm. Hypersomnolence questionnaire: Do you have daytime tiredness or fatigue? Yes. Do you easily fall asleep when inactive? Yes. Have you ever had episodes of sudden weakness? No. Have you ever had episodes of sudden weakness associated with strong emotions? No. [facility] Medical History Encounter to establish care Multiple lipomas Lipoma History of Lyme disease Fractured skull Fracture of T12 vertebra Surgical History Status post excision of lipoma (~01/25/23) History of skin surgery Previous back surgery Family History Mother No problems noted. 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 Cognitive needs: Yes Hearing needs: No Vision needs: No Review of Systems Const All systems reviewed & are unremarkable except as noted in HPI and below Physical Exam Vital Signs: Last Vital Signs Pulse 65 06/07/23 15:47 BP 120/70 06/07/23 15:47 Pulse Ox 96 06/07/23 15:47 Oxygen Delivery Method Room Air 06/07/23 15:47 BMI result Body Mass Index 29.3 Const General: cooperative and tired appearing Nutritional Appearance: overweight Orientation/consciousness: patient oriented x3 Neck Neck: Yes full ROM and Yes supple Neuro General: patient oriented x3 Cranial nerves: Yes CN's II-XII intact bilaterally Cognition (Neuro): normal cognition Motor exam (neuro): 5/5 motor strength present throughout Psych Appearance: grossly normal Mental Status: mental status grossly normal Speech and movement: Normal speech and movement present Affect: normal affect Attitude: cooperative Assessment & Plan Assessment & Plan (1) Snoring: Code(s): R06.83 - Snoring (2) Hypersomnia: Code(s): G47.10 - Hypersomnia, unspecified Plan Pt is advised to undergo in lab sleep study to assess for sleep apnea. Will f/u with pt after study to discuss results and appropriate treatment options. Sleep hygiene education provided. Advised patient to cut down smoking. Pt to call with any worsening concerns or questions. Orders: Orders RT PSG in-lab sleep study 06/07/23 G47.10 - Hypersomnia, unspecified, R06.83 - Snoring Coding Level of Care Code New Pt Level 3 (80363) Diagnoses Snoring R06.83 Hypersomnia G47.10
[2023-06-07 15:47] VITALS: BP 120/70; PULSE 65; O2SAT 96; BMI 29.3
== END 2023-06-07 16:05 | disposition home or self-care (01) ==
PROVIDERS: Visit Provider Nurse Practitioner Family
DX: R06.83 Snoring (principal); G47.10 Hypersomnia, unspecified
CPT/HCPCS: 99203

== ENCOUNTER → 2023-06-07 15:22 | Outpatient (BNVA) | payer BC, SELFPAY | PROVIDERS: Visit Provider Nurse Practitioner Family ==

== ENCOUNTER 2023-06-18 10:47 | Outpatient (AMB) | payer BC, SELFPAY ==
--- NOTE | 2023-06-18 11:03 | A.OFFVIS_ITS ---
Intake Vital Signs 06/18/23 11:04 Height 6 ft Weight 216 lb BMI 29.3 BP 115/85 Blood Pressure Location Lt brachial Position Sitting Respiration 12 Pulse 63 Pulse Source Pulse Oximeter Pulse Oximetry (%) 99 Oxygen Delivery Method Room Air Intake Visit Reasons: WC denial Allergies Otezla Adverse Reaction (Severe, Uncoded 06/07/23 13:31) itching HPI WC denial HPI Details 48-year-old male who presents today to t he office for a WC denial. His left C4-C5-C6 medial branch block was denied by the insurance company. He tried physical therapy several years ago. He states that the traction exercises worsened his pain symptoms. Currently he reports axial pain in the neck, that radiates down to his left shoulder and left upper arm. He has been experiencing subjective weakness in the left arm and is unable to lift heavy objects above his head. He also reports fatigue with repetitive motion. He reports a tingling sensation in his hands that he attributes to carpal tunnel syndrome. He denies any sharp sensations or pain in his forearm or fingers. He has been working with orthopedics for carpal tunnel entrapment. He has received cortisone injections in the past, including possibly cervical epidural steroid injections that did not provide any relief. He had an MRI scan several years ago. [facility] Medical History Encounter to establish care Multiple lipomas Lipoma History of Lyme disease Fractured skull Fracture of T12 vertebra Surgical History Status post excision of lipoma (~01/25/23) History of skin surgery Previous back surgery Family History Mother No problems noted. Father Hypertension Social History Housing: Apartment Alcohol intake: current Alcohol intake frequency: a few times a week Patient Tobacco Use Status: Current everyday Tobacco user Tobacco use type: Cigarette Cigarette Packs Per Day: 0.5 Cigarettes Per Day: 10 e-Cigarette/Vaping Use: Never Used Second Hand Smoke Exposure: Yes service: No Current occupational status: employed Current occupation: [employer] comp/ rt hand Cognitive needs: Yes Hearing needs: No Vision needs: No Review of Systems Const All systems reviewed & are unremarkable except as noted in HPI and below Physical Exam Vital Signs: Last Vital Signs Pulse 63 06/18/23 11:04 Resp 12 06/18/23 11:04 BP 115/85 06/18/23 11:04 Pulse Ox 99 06/18/23 11:04 Oxygen Delivery Method Room Air 06/18/23 11:04 BMI result Body Mass Index 29.3 General: Appears afebrile. Alert and oriented. Mood and affect appropriate. Follows and participates in conversation appropriately. Respiratory effort is unlabored. Able to transition from sit to stand unassisted. Ambulates with bilaterally normal heel strike and toe off. On exam his neuro strength is intact across the upper extremity myotomes though he reports subjective weakness with repetitive activity. Results Reviewed Results Reviewed: No imaging is available for review. Assessment & Plan Assessment & Plan (1) Cervical radiculitis: Code(s): M54.12 - Radiculopathy, cervical region (2) Cervical spondylosis: Code(s): M47.812 - Spondylosis without myelopathy or radiculopathy, cervical region Plan 48-year-old male with cervical spondylosis in combination with cervical radiculopathy due to degenerative changes at the C5-6, C6-7 levels. Unfortunately our request for cervical facet blocks was denied because of his concomitant radicular symptoms in the shoulder and upper arm, in addition to axial neck pain. At this time the patient does not specifically interested in surgical decompression. I will send him for another round of physical therapy for 3 months and see if his symptoms improve. If he continues to have significant pain despite a repeat round of physical therapy, we can consider repeating cervical MR imaging for consideration of surgical decompression at that point. A script was provided to the patient for physical therapy. I recommended trying neck traction pillows at home. Scribed for Dr. Cummings by Jose Lackey, center medical specialist, on 06/18/2023. I, Dr. Cummings, have personally reviewed and agree with the information entered by the scribe. Orders: Orders PT Evaluation and Treatment Today M47.812 - Spondylosis without myelopathy or radiculopathy, cervical region, M54.12 - Radiculopathy, cervical region Coding Level of Care Code Est Pt Level 4 (68658) Diagnoses Cervical radiculitis M54.12 Cervical spondylosis M47.812
[2023-06-18 11:04] VITALS: BP 115/85; PULSE 63; RESP 12; O2SAT 99; BMI 29.3
== END 2023-06-18 11:37 | disposition home or self-care (01) ==
PROVIDERS: PCP Internal Medicine; Visit Provider Internal Medicine
DX: M54.12 Radiculopathy, cervical region (principal); M47.812 Spondylosis without myelopathy or radiculopathy, cervical region
CPT/HCPCS: 99214

== ENCOUNTER → 2023-06-18 10:47 | Outpatient (BNVA) | payer BC, SELFPAY | PROVIDERS: PCP Internal Medicine; Visit Provider Internal Medicine ==

== ENCOUNTER 2023-06-19 08:10 | Outpatient (AMB) | payer BC, SELFPAY ==
--- NOTE | 2023-06-19 08:18 | A.OFFVIS_ITS ---
Intake Vital Signs 06/19/23 08:23 Height 6 ft Weight 216 lb BMI 29.3 Handedness Right Intake Visit Reasons: ov- Lt lateral epicondylitis Intake Note: Michael is a 48 year old right hand dominant male who presents today for a follow up of his left lateral epicondylitis, last injection 01/12/23. Patient reports his last injection only gave him a couple hours of relief, the next few days his pain came back. Currently his pain is getting worse. He states that his arm feels weak. Allergies Otezla Adverse Reaction (Severe, Uncoded 06/07/23 13:31) itching HPI ov- Lt lateral epicondylitis HPI Details 48-year-old right hand dominant male who presents in the office today for a follow up of left elbow lateral epicondylitis, which began around 04/2022. I last saw the patient in the office on 01/12/2023 when he received a cortisone injection and was encouraged to use a tennis elbow brace. While in the office today the patient reports the cortisone injection only gave him a little relief and the pain returned after a few days. He claims his pain has increased and he feels his left upper extremity feels weak. The patient is currently being followed by Pain Management, last seen on 06/18/2023, with cervical spondylosis in combination with cervical radiculopathy due to degenerative changes at the C5-6, C6-7 levels. He was referred to physical therapy for 3 months. [facility] Medical History Encounter to establish care Multiple lipomas Lipoma History of Lyme disease Fractured skull Fracture of T12 vertebra Surgical History Status post excision of lipoma (~01/25/23) History of skin surgery Previous back surgery Family History Mother No problems noted. Father Hypertension Social History Housing: Apartment Alcohol intake: current Alcohol intake frequency: a few times a week Patient Tobacco Use Status: Current everyday Tobacco user Tobacco use type: Cigarette Cigarette Packs Per Day: 0.5 Cigarettes Per Day: 10 e-Cigarette/Vaping Use: Never Used Second Hand Smoke Exposure: Yes service: No Current occupational status: employed Current occupation: [employer]/ rt hand Cognitive needs: Yes Hearing needs: No Vision needs: No Review of Systems Const All systems reviewed & are unremarkable except as noted in HPI and below Physical Exam Vital Signs: BMI result Body Mass Index 29.3 Const General: cooperative, healthy appearing and no acute distress Orientation/consciousness: patient oriented x3 Resp Effort & Inspection: normal respiratory effort and able to speak in complete sentences Cardio Rate: regular rate Peripheral pulses: Peripheral pulses 2+ throughout GI Palpation (GI): Soft to palpation Skin General skin exam: no rashes or lesions noted Lesions: no lesions Rashes: no rashes Neuro General: patient oriented x3 Extrem Other: Left elbow normal to inspection. No ecchymosis, erythema, edema. Mild lateral and medial epicondyle tenderness to palpation as well as tenderness to palpation of the tricep attachment. Mild medial epicondyle. No laxity with varus or valgus stress. Full ROM. NVI. Assessment & Plan Assessment & Plan (1) Left lateral epicondylitis: Code(s): M77.12 - Lateral epicondylitis, left elbow (2) Cervical spondylosis: Code(s): M47.812 - Spondylosis without myelopathy or radiculopathy, cervical region (3) Cervical radiculitis: Code(s): M54.12 - Radiculopathy, cervical region Plan Mr. Spears is a 48-year-old right hand dominant male who presents in the office today for a follow up of left elbow lateral epicondylitis, which began around 04/2022. I last saw the patient in the office on 01/12/2023 when he received a cortisone injection and was encouraged to use a tennis elbow brace. While in the office today the patient reports the cortisone injection only gave him a little relief and the pain returned after a few days. He claims his pain has increased and he feels his left upper extremity feels weak. The patient is currently being followed by Pain Management, last seen on 06/18/2023, with cervical spondylosis in combination with cervical radiculopathy due to degenerative changes at the C5-6, C6-7 levels. He was referred to physical therapy for 3 months. The patient is currently being treated by Pain Management for his C-spine. I do think that some of his elbow pain and weakness is associated with his C-spine pathology. Due to the patient not having much relief from his prior injection, we decided to forego repeat injection today. I have placed an order for occupational therapy, which he wished to attend an outside facility. I encouraged him to continue treatment for his C-spine. Follow up will be PRN, or sooner if needed. Orders: Orders OT Evaluation and Treatment Today M77.12 - Lateral epicondylitis, left elbow Patient Instructions: Scribed by Lacey Lopez director of medical staff services, for Olga Hagan PA-C on 06/19/2023 at 8:11 am, EST. Coding Level of Care Code Est Pt Level 4 (09499) Diagnoses Left lateral epicondylitis M77.12 Cervical spondylosis M47.812 Cervical radiculitis M54.12
[2023-06-19 08:23] VITALS: BMI 29.3
== END 2023-06-19 08:42 | disposition home or self-care (01) ==
PROVIDERS: Visit Provider Physician Assistant
DX: M77.12 Lateral epicondylitis, left elbow (principal); M47.812 Spondylosis without myelopathy or radiculopathy, cervical region; M54.12 Radiculopathy, cervical region
CPT/HCPCS: 99213

== ENCOUNTER → 2023-06-19 08:10 | Outpatient (BNVA) | payer BC, SELFPAY | PROVIDERS: Visit Provider Physician Assistant ==

== ENCOUNTER 2023-06-19 09:18 | Outpatient (AMB) | payer BC, SELFPAY ==
--- NOTE | 2023-06-19 11:10 | AM.OFFWIN_ITS ---
Intake Vital Signs 06/19/23 11:18 Weight 216 lb BP 122/80 Blood Pressure Location Lt brachial Position Sitting Pulse 58 Pulse Source Pulse Oximeter Temp 97.8 F Temp Source Oral Pulse Oximetry (%) 96 Oxygen Delivery Method Room Air Intake Visit Reasons: EP sinus infection [id number] Intake Note: Patient here for sinus pressure,headache which started last week. Patient Tobacco Use Status: Current everyday Tobacco user Allergies Otezla Adverse Reaction (Severe, Uncoded 06/19/23 11:11) itching Do you need a note to return to daycare/school/sports/work: No HPI HPI Comments History of Present Illness Details Patient is a 48-year-old male in today for a sick visit. He states for the past several days he has developed symptoms of sign or tenderness, sinus pressure, headache, sore throat, chest wall pain, cough. Denies recent travel, denies recent sick contacts. Denies chest pain, shortness a breath, dyspnea on exertion, numbness, dizziness, nausea, vomiting, diarrhea. [facility] Medical History Encounter to establish care Multiple lipomas Lipoma History of Lyme disease Fractured skull Fracture of T12 vertebra Surgical History Status post excision of lipoma (~01/25/23) History of skin surgery Previous back surgery Family History Mother No problems noted. Father Hypertension Social History Housing: Apartment Alcohol intake: current Alcohol intake frequency: a few times a week Patient Tobacco Use Status: Current everyday Tobacco user Tobacco use type: Cigarette Cigarette Packs Per Day: 0.5 Cigarettes Per Day: 10 e-Cigarette/Vaping Use: Never Used Second Hand Smoke Exposure: Yes service: No Current occupational status: employed Current occupation: [employer]/ rt hand Cognitive needs: Yes Hearing needs: No Vision needs: No Review of Systems Const Details: Constitutional : No Weight loss, Admits intermittent Fever, No Chills, No Fatigue, No Malaise ENT/Mouth : Admits sore throat, No Rhinorrhea. Admits sinus tenderness. Eyes: No Eye Pain, No Swelling, No Redness Cardiovascular : No Chest Pain, No SOB, No Dyspnea on Exertion, No Orthopnea, No Edema, No Palpitations Respiratory : Admits Cough, No Sputum, No Wheezing Gastrointestinal : No Nausea, No Vomiting, No Diarrhea, No Constipation, No abdominal Pain, No Hematochezia, No Melena Genitourinary : No Dysuria, No Urinary Frequency, No Hematuria, Musculoskeletal : Admits chest wall pain. +reproducible. Skin : No Skin Lesions, No rash Neuro : No Weakness, No Numbness, No Dizziness, No Headache Psych : No Anxiety/Panic, No Depression All other systems reviewed and are negative Physical Exam Vital Signs: Last Vital Signs Temp 97.8 F 06/19/23 11:18 Pulse 58 06/19/23 11:18 BP 122/80 06/19/23 11:18 Pulse Ox 96 06/19/23 11:18 Oxygen Delivery Method Room Air 06/19/23 11:18 Const Other: Appearance: Alert.? Oriented X3.? No acute distress.? Head: Normocephalic, atraumatic. Eyes: Pupils equal, round and reactive to light.? ENT: Pharynx erythema. + Sinus tenderness. +green mucus. Neck: Normal inspection.? Neck supple.?Full ROM. CVS: Normal heart rate and rhythm.? Pulses normal.? Respiratory: No respiratory distress.? Breathe sounds diminished. ? Neuro: Oriented X 3.? No motor deficit.? No sensory deficit. CN 2-12 intact Assessment & Plan Assessment & Plan (1) Sinusitis: Comment: Will give patient Augmentin, prednisone to be taken as directed. Code(s): J32.9 - Chronic sinusitis, unspecified Qualifiers: Sinusitis location: unspecified location Chronicity: unspecified Qualified Code(s): J32.9 - Chronic sinusitis, unspecified Plan: Take your medications as prescribed. If you were prescribed antibiotics today, it is important that you take your medication to their entirety, do not skip any doses, do not finish them early. Follow-up with your primary care provider this week. Return to the emergency department with new or worsening symptoms. Such as fevers, chills, chest pain, shortness of breath, nausea, vomiting, dizziness, headache, vision changes, lethargy In case of emergency call 911 Plan Patient should follow-up with PCP Orders: Orders SARS-CoV2/FLU/RSV Today J06.9 - Acute upper respiratory infection, unspecified Coding Level of Care Code Est Pt Level 3 (45133) Diagnoses Sinusitis, unspecified chronicity, unspecified location J32.9 Sinusitis location: unspecified location Chronicity: unspecified Time Spent (min) 21
[2023-06-19 11:18] VITALS: BP 122/80; PULSE 58; TEMP 36.6; O2SAT 96
== END 2023-06-19 11:57 | disposition home or self-care (01) ==
PROVIDERS: PCP Internal Medicine; Visit Provider Nurse Practitioner Primary Care
DX: J32.9 Chronic sinusitis, unspecified (principal)
CPT/HCPCS: 99213

== ENCOUNTER 2023-06-19 13:34 | Outpatient (REF) | payer BC, SELFPAY ==
[2023-06-19 15:36] LABS: Influenza A PCR NEGATIVE (Negative); Influenza B PCR NEGATIVE (Negative); Resp Syncy Virus RNA Qual PCR NEGATIVE (Negative); SARS COV2 PCR INHOUSE NEGATIVE (Negative)
== END 2023-06-19 13:35 | disposition home or self-care (01) ==
LOC: HO.HMGCLNP 13:34
PROVIDERS: Visit Provider Nurse Practitioner Primary Care
DX: Z11.52 Encounter for screening for COVID-19 (principal); Z20.822 Contact with and (suspected) exposure to COVID-19; J06.9 Acute upper respiratory infection, unspecified
CPT/HCPCS: 0241U

== ENCOUNTER 2023-07-24 15:22 | Outpatient (AMB) | payer BC, SELFPAY ==
[2023-07-24 15:25] VITALS: BMI 29.3
--- NOTE | 2023-07-24 15:25 | MHC.OFFVIS ---
Intake Vital Signs 07/24/23 15:25 Height 6 ft Weight 216 lb BMI 29.3 Handedness Right Intake Visit Reasons: new prob- Carpal tunnel syndrome, bilateral Intake Note: Michael 48 year old right hand dominant male presents today a new problem for his Carpal tunnel syndrome on bilateral hands. States symptoms started approx 10 years ago and has worsen since. He is experiencing numbness, tingling that comes and goes through out the day and increases at night time. EMG was done a couple years ago. Patient states that his left hand is worse and than his right hand. He states that he would like to discuss surgery for his left hand first. Patient is having concerns with his left thumb due to having an incident where he hit his thumb with a hammer about 10 years. Allergies Otezla Adverse Reaction (Severe, Uncoded 06/19/23 11:11) itching HPI new prob- Carpal tunnel syndrome, bilateral HPI Details Michael is a 48 year old right hand dominant man who presents with complaints of bilateral hand numbness. He complains of numbness in all fingers of his hands bilaterally, L>R. He is unsure if this does affect his small fingers at this time. Symptoms intermittent, but daily, worse at night. He says this is also worse with activities such as driving or using a snowblower. He says this has been present for ~10 years now. He has a hx of cervical radiculitis and has been seen by Pain management for this. He has been seen by [facility] in the past for this as well. He says he had a NCS done several years ago, but does not have a copy of this report. He also complains of left thumb MCP joint enlargement and discomfort with activities. he says he previously injured his thumb by striking it with a hammer ~10 years ago, and has often struck this thumb with a hammer at work since. 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 [facility] Medical History Encounter to establish care Multiple lipomas Lipoma History of Lyme disease Fractured skull Fracture of T12 vertebra Surgical History Status post excision of lipoma (~01/25/23) History of skin surgery Previous back surgery Family History Mother No problems noted. Father Hypertension Social History Housing: Apartment Alcohol intake: current Alcohol intake frequency: a few times a week Patient Tobacco Use Status: Current everyday Tobacco user Tobacco use type: Cigarette Cigarette Packs Per Day: 0.5 Cigarettes Per Day: 10 e-Cigarette/Vaping Use: Never Used Second Hand Smoke Exposure: Yes service: No Current occupational status: employed Current occupation: [employer]/ rt hand Cognitive needs: Yes Hearing needs: No Vision needs: No Review of Systems Const All systems reviewed & are unremarkable except as noted in HPI and below Physical Exam Vital Signs: BMI result Body Mass Index 29.3 Const General: cooperative, healthy appearing and no acute distress Orientation/consciousness: patient oriented x3 HEENT Head: Yes normocephalic and Yes atraumatic Eyes EOM: EOMs intact bilaterally Resp Effort & Inspection: normal respiratory effort and able to speak in complete sentences Cardio Jugular venous distension: no JVD Skin General skin exam: turgor normal Rashes: no rashes Neuro General: patient oriented x3 Extrem Other: Evaluation of Bilateral Upper Extremity: The patient is alert, oriented, and in no acute distress Neuro: Median, Ulnar, Radial nerves motor and sensory intact and sensation is normal to the tips of all digits No thenar or intrinsic wasting Good APB muscle belly firing and good finger cross Vascular: Cap refill brisk ROM: He can make a fist and extend all his digits No locking or catching Skin: No lacerations or abrasions. General: No Ecchymosis. No Erythema or evidence of infection. He has some generalized enlargement & discomfort of the left MCP joint Good active flexion and extension of the joint. Perhaps mild laxity of the ulnar collateral ligament, but he has a firm endpoint. No locking or catching. Interestingly, he does have a fairly new subungual hematoma from recently hitting his thumb with a hammer. He can oppose the left thumb to all of his digits. Psych Appearance: grossly normal Affect: normal affect Attitude: cooperative Assessment & Plan Assessment & Plan (1) Bilateral hand numbness: Code(s): R20.0 - Anesthesia of skin (2) Cervical radiculitis: Code(s): M54.12 - Radiculopathy, cervical region Plan Assessment & Plan: 1. Bilateral hand numbness In the median nerve distribution, he has not sure about the small fingers bilaterally. Symptoms intermittent, but daily, worse at night 2. History of cervical radiculitis He will be careful to pay attention to if he develops any numbness in his small fingers or not I ordered a NCS to assess for peripheral nerve compression. Of note he reports having a previous NCS done at [facility] in ~2017 but does not have a copy He will follow up when completed for review 3. Left thumb MCP joint enlargement & discomfort May be arthritis, report of injury 10+ years ago Radiographs at his next appointment, 3 V attn L thumb Scribed for Sonia Caballero MD by Kuldip Landaverde, medical lab technologist, on 07/24/23 at 3:40 PM, EST. Orders: Orders NE nerve conduction velocity Today R20.0 - Anesthesia of skin, R20.2 - Paresthesia of skin Coding Level of Care Code New Pt Level 4 (39770) Diagnoses Bilateral hand numbness R20.0 Cervical radiculitis M54.12
== END 2023-07-24 15:49 | disposition home or self-care (01) ==
PROVIDERS: PCP Internal Medicine; Visit Provider Orthopaedic Surgery
DX: R20.0 Anesthesia of skin (principal); M54.12 Radiculopathy, cervical region
CPT/HCPCS: 99204

== ENCOUNTER → 2023-07-24 15:22 | Outpatient (BNVA) | payer BC, SELFPAY | PROVIDERS: PCP Internal Medicine; Visit Provider Orthopaedic Surgery ==

== ENCOUNTER 2023-08-24 15:23 | Outpatient (REF) | payer BC, SELFPAY ==
--- NOTE | 2023-08-24 15:26 | EMG_ITS ---
Chief complaint: Bilateral hand numbness Diagnosed Carpal Tunnel Syndrome with EMG about 10 years ago, no surgeries yet Reason for referral: Evaluate for Carpal Tunnel Syndrome Referred by: Dr. Caballero Procedure done: Bilateral upper extremities NCS/EMG Precautions and/or limitations: None The limb temperature was monitored continuously and remained between 32-36 degrees C during the performance of the NCS. Nerve Conduction Studies Anti Sensory Summary Table ?Stim Site NR Onset (ms) Norm Onset (ms) Peak (ms) Norm Peak (ms) O-P Amp (?V) Norm O-P Amp Site1 Site2 Delta-0 (ms) Dist (cm) Edwar (m/s) Norm Edwar (m/s) Left Median Anti Sensory (2nd Digit) Wrist ? 2.8 3.9 <3.6 12.1 >10 Wrist 2nd Digit 2.8 14.0 50 Right Median Anti Sensory (2nd Digit) Wrist ? 3.4 4.4 <3.6 4.7 >10 Wrist 2nd Digit 3.4 14.0 41 Right Radial Anti Sensory (Thumb) Forearm ? 1.5 1.9 <3.1 14.5 Forearm Thumb 1.5 0.0 Left Ulnar Anti Sensory (5th Digit) Wrist ? 2.6 3.1 <3.7 16.6 >15.0 Wrist 5th Digit 2.6 14.0 54 Right Ulnar Anti Sensory (5th Digit) Wrist ? 2.6 3.0 <3.7 7.0 >15.0 Wrist 5th Digit 2.6 14.0 54 Motor Summary Table ?Stim Site NR Onset (ms) Norm Onset (ms) O-P Amp (mV) Norm O-P Amp iAmp (mV) Amp (1st) (%) Site1 Site2 Delta-0 (ms) Dist (cm) Edwar (m/s) Norm Edwar (m/s) Left Median Motor (Abd Poll Brev) Wrist ? 4.5 <3.9 6.6 >4.5 8.5 100.0 Elbow Wrist 4.7 25.0 53 >45 Elbow ? 9.2 5.9 7.5 89.4 Right Median Motor (Abd Poll Brev) Wrist ? 4.8 <3.9 4.4 >4.5 5.8 100.0 Elbow Wrist 5.2 26.0 50 >45 Elbow ? 10.0 4.4 5.8 100.0 Left Ulnar Motor (Abd Dig Minimi) Wrist ? 2.9 <3.0 7.5 >5 9.6 100.0 B Elbow Wrist 3.7 23.0 62 >45 B Elbow ? 6.6 7.3 9.2 97.3 A Elbow B Elbow 1.7 10.0 59 >45 A Elbow ? 8.3 6.9 8.9 92.0 Right Ulnar Motor (Abd Dig Minimi) Wrist ? 2.8 <3.0 9.0 >5 11.4 100.0 B Elbow Wrist 4.0 24.0 60 >45 B Elbow ? 6.8 8.2 10.9 91.1 A Elbow B Elbow 1.5 10.0 67 >45 A Elbow ? 8.3 7.9 10.8 87.8 EMG ?Side Muscle Nerve Root Ins Act Fibs Psw Amp Dur Poly Recrt Int Pat Comment Right 1stDorInt Ulnar C8-T1 Nml Nml Nml Nml Nml 0 Nml Complete Right FlexCarRad Median C6-7 Nml Nml Nml Nml Nml 0 Nml Complete Right Biceps Musculocut C5-6 Nml Nml Nml Nml Nml 0 Nml Complete Right Triceps Radial C6-7-8 Nml Nml Nml Nml Nml 0 Nml Complete Right Deltoid Axillary C5-6 Nml Nml Nml Nml Nml 0 Nml Complete Left 1stDorInt Ulnar C8-T1 Nml Nml Nml Nml Nml 0 Nml Complete Left FlexCarRad Median C6-7 Nml Nml Nml Nml Nml 0 Nml Complete Left Biceps Musculocut C5-6 Nml Nml Nml Nml Nml 0 Nml Complete Left Triceps Radial C6-7-8 Nml Nml Nml Nml Nml 0 Nml Complete Left Deltoid Axillary C5-6 Nml Nml Nml Nml Nml 0 Nml Complete FINDINGS: Right median motor nerve showed prolonged distal latency, small amplitude and normal conduction velocity. Left median motor nerve showed prolonged distal latency, normal amplitude and normal conduction velocity. Right median sensory nerve showed prolonged peak latency and small amplitude. Left median sensory nerve showed prolonged peak latency. All other nerves tested were within normal. Concentric needle EMG was performed in selected muscles of the bilateral upper extremities. Study did not reveal signs of electric abnormalities as shown in the table below. IMPRESSION: 1. This is an abnormal study. 2. There is electrodiagnostic evidence for bilateral moderate-severe median neuropathy at the wrist, consistent with carpal tunnel syndrome. 3. There is no electrodiagnostic evidence for ulnar neuropathy, brachial plexopathy, or cervical radiculopathy. Thank you for your kind referral. Tania Martinez MD, REHANA Board Certified, [place] [employer] and [employer] (ABPMR) Board Certified, [place] Board of Electrodiagnostic Medicine (ABEM) CODIN [id number] x 2 MTDD
== END 2023-08-24 15:24 | disposition home or self-care (01) ==
LOC: HO.NEURO 15:23
PROVIDERS: PCP Internal Medicine; Visit Provider Orthopaedic Surgery
DX: R20.0 Anesthesia of skin (principal); R20.2 Paresthesia of skin
CPT/HCPCS: 95886; 95911

== ENCOUNTER → 2023-08-24 15:26 | Outpatient (BNV) | payer BC, SELFPAY | PROVIDERS: PCP Internal Medicine; Visit Provider Physical Medicine & Rehabilitation | DX: G56.03 Carpal tunnel syndrome, bilateral upper limbs (principal) | CPT/HCPCS: 95886; 95911 ==

== ENCOUNTER 2023-09-21 10:27 | Outpatient (AMB) | payer BC, SELFPAY ==
--- NOTE | 2023-09-21 10:35 | A.OFFVIS_ITS ---
Vital Signs 09/21/23 10:36 Height 6 ft Weight 210 lb BMI 28.5 BP 125/74 Blood Pressure Location Rt brachial Position Sitting Respiration 14 Pulse 72 Pulse Source Pulse Oximeter Pulse Oximetry (%) 98 Oxygen Delivery Method Room Air Intake Visit Reasons: 3 MONTH FOLLOW UP Allergies Otezla Adverse Reaction (Severe, Uncoded 09/21/23 10:37) itching Medication List - Last Reconciled 09/21/23 by Nakia Irving LPN amoxicillin-pot clavulanate 875-125 mg 1 tab PO Q12H fluticasone propionate 50 mcg/actuation (Allergy Relief (fluticasone)) 2 sprays intranasal DAILY guselkumab (Tremfya) mg subcut ibuprofen 600 mg PO Q8H PRN meloxicam 15 mg PO DAILY nicotine 1 patch transdermal DAILY prednisone 20 mg PO BID HPI HPI 3 MONTH FOLLOW UP: Details: 48-year-old male who presents today to the office for a three month follow up. He still has on and off pain symptoms. His left C4-C5-C6 medial branch block was denied previously by the insurance company. He continues to have persistent neck pain despite 3 months of physical therapy with 15 visits. Pain is reported in the neck worse with loading which clearly on the left side and includes his left shoulder. His physical therapy was also denied by the insurance company. The pain is localized in the neck that extends to the shoulder region and radiates down to his arm. The pain is worse at night. He has a history of carpal tunnel syndrome and moderate to severe median neuropathy. His MRI scan of the neck was about 5-6 years ago. [facility] Medical History Encounter to establish care Multiple lipomas Lipoma History of Lyme disease Fractured skull Fracture of T12 vertebra Surgical History Status post excision of lipoma (~01/25/23) History of skin surgery Previous back surgery Family History Mother No problems noted. Father Hypertension Social History Housing: Apartment Alcohol intake: current Alcohol intake frequency: a few times a week Patient Tobacco Use Status: Current everyday Tobacco user Tobacco use type: Cigarette Cigarette Packs Per Day: 0.5 Cigarettes Per Day: 10 e-Cigarette/Vaping Use: Never Used Second Hand Smoke Exposure: Yes service: No Current occupational status: employed Current occupation: [employer]/ rt hand Cognitive needs: Yes Hearing needs: No Vision needs: No Review of Systems Const All systems reviewed & are unremarkable except as noted in HPI and below Physical Exam Vital Signs: Last Vital Signs Pulse 72 09/21/23 10:36 Resp 14 09/21/23 10:36 BP 125/74 09/21/23 10:36 Pulse Ox 98 09/21/23 10:36 Oxygen Delivery Method Room Air 09/21/23 10:36 BMI result Body Mass Index 28.5 General: Appears afebrile. Alert and oriented. Mood and affect appropriate. Follows and participates in conversation appropriately. Respiratory effort is unlabored. Able to transition from sit to stand unassisted. Ambulates with bilaterally normal heel strike and toe off. There is straightening of the cervical lordosis. Facet loading cervical extension reproduces pain on the left side. Cervical flexion also reproduces discomfort. Results Reviewed Results Reviewed: No imaging is available for review. Assessment & Plan Assessment & Plan (1) Cervical radiculitis: Code(s): M54.12 - Radiculopathy, cervical region Category: Medical (2) Cervical spondylosis: Code(s): M47.812 - Spondylosis without myelopathy or radiculopathy, cervical region Category: Medical Plan He continues to have persistent neck pain despite 3 months of physical therapy and 15 visits. Pain is reported in the neck, which is worse with loading, which is clearly on the left side and includes his left shoulder. He continues to have numbness and tingling in the hand, but this has been diagnosed as secondary to carpal tunnel syndrome on a nerve conduction study. I would like him to undergo an MRI exam for persistent neck pain despite physical therapy. Once this is done he will return to clinic to further assess the need for interventional management of the neck pain Scribed for Dr. Cummings by Jose Lackey, medical library assistant, on 09/21/2023. I, Dr. Cummings, have personally reviewed and agree with the information entered by the scribe. Coding Level of Care Code Est Pt Level 3 (92251) Diagnoses Cervical radiculitis M54.12 Cervical spondylosis M47.812
[2023-09-21 10:36] VITALS: BP 125/74; PULSE 72; RESP 14; O2SAT 98; BMI 28.5
== END 2023-09-21 10:53 | disposition home or self-care (01) ==
PROVIDERS: PCP Internal Medicine; Visit Provider Internal Medicine
DX: M54.12 Radiculopathy, cervical region (principal); M47.812 Spondylosis without myelopathy or radiculopathy, cervical region
CPT/HCPCS: 99213

== ENCOUNTER → 2023-09-21 10:27 | Outpatient (BNVA) | payer BC, SELFPAY | PROVIDERS: PCP Internal Medicine; Visit Provider Internal Medicine ==

== ENCOUNTER 2023-10-12 10:55 | Outpatient (AMB) | payer BC, SELFPAY ==
--- NOTE | 2023-10-12 11:12 | MHC.OFFVIS ---
Intake Visit Reasons: OV - B/L EMG review Intake Note: This is a 48 male who presents for an bilateral hand EMG review. He reports numbness on both sides however it is worse on the left side as well as more pain. 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 Allergies Otezla Adverse Reaction (Severe, Uncoded 10/12/23 11:14) itching Medication List - Last Reconciled 10/12/23 by Kimberlyn Simental RN amoxicillin-pot clavulanate 875-125 mg 1 tab PO Q12H fluticasone propionate 50 mcg/actuation (Allergy Relief (fluticasone)) 2 sprays intranasal DAILY guselkumab (Tremfya) mg subcut ibuprofen 600 mg PO Q8H PRN meloxicam 15 mg PO DAILY nicotine 1 patch transdermal DAILY prednisone 20 mg PO BID HPI HPI OV - B/L EMG review: Details: Patient is a 48-year-old male who presents for evaluation of bilateral carpal tunnel syndrome/NCS review. The patient reports that, approximately 10 years ago, he had a nerve conduction study done that revealed bilateral carpal tunnel, but that he chose to not have any intervention performed at that time. At previous visit on 07/31/[address] Caballero, a repeat nerve conduction study was ordered, revealing moderate-severe carpal tunnel syndrome in both hands. The patient is interested in surgical intervention at this time, and wishes to have carpal tunnel release performed on his left hand first, as his symptoms are more bothersome in his left hand. He reports that, at this time, the numbness in bilateral hands is intermittent but daily, and routinely prevents him from sleeping or wakes him from sleep. He reports that this numbness occurs in the median nerve distribution bilaterally. No other acute complaints at this time. [facility] Medical History Encounter to establish care Multiple lipomas Lipoma History of Lyme disease Fractured skull Fracture of T12 vertebra Surgical History Status post excision of lipoma (~01/25/23) History of skin surgery Previous back surgery Family History Mother No problems noted. 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 No thenar or intrinsic wasting. Good finger cross bilaterally. Good APB muscle belly firing in the right hand. Unable to adequately evaluate APB muscle belly firing on the left due to previous injury to the left thumb. Vascular: Capillary refill brisk bilaterally. ROM: Patient can make a fist and extend all their digits bilaterally. Skin: No lacerations or abrasions noted bilaterally. General: No ecchymosis. No erythema or evidence of infection. All other findings WNL Psych Appearance: grossly normal Mental Status: mental status grossly normal Results Reviewed Results Reviewed: Nerve Conduction Study Performed and interpreted by Dr. Rajput: IMPRESSION: 1. This is an abnormal study. 2. There is electrodiagnostic evidence for bilateral moderate-severe median neuropathy at the wrist, consistent with carpal tunnel syndrome. 3. There is no electrodiagnostic evidence for ulnar neuropathy, brachial plexopathy, or cervical radiculopathy. Assessment & Plan Assessment & Plan (1) Carpal tunnel syndrome of left wrist: Code(s): G56.02 - Carpal tunnel syndrome, left upper limb Category: Medical (2) Carpal tunnel syndrome of right wrist: Code(s): G56.01 - Carpal tunnel syndrome, right upper limb Category: Medical Plan 1. Carpal tunnel syndrome, left Symptoms intermittent, but daily, worse at night. I educated the patient about the condition. I discussed both operative and nonoperative treatment options. The patient would like to proceed with surgery. The risks and benefits of operative treatment were discussed with the patient and the patient wishes to proceed with surgery. These risks include, but are not limited to, risk of damage to blood vessels, nerves, tendons, infection, recurrence, incomplete relief of preoperative symptoms, persistent pain, possible need for further surgery, and the risks associated with regional blocks and/or anesthesia. Plan is to take the patient to the operating room at some point in the next few weeks for the following procedures: Left carpal tunnel release under local anesthesia All of the preoperative paperwork including the consent was discussed today. All of the patient's questions were answered in the clinic today. The patient understands that they will be in contact with our assembler surgical garment to discuss scheduling their procedure. Patient requests to be put on the short notice/add on list Patient denies diabetes, blood thinners, asthma, heart issues, lung issues, kidney issues, or current smoking. 2. Carpal tunnel syndrome, right Symptoms intermittent, but daily, worse at night At this time, patient would like to move forward with carpal tunnel release on the left 1st, as he feels his symptoms in his hand are more severe. When recovery is complete from his left carpal tunnel release, patient is interested in having right carpal tunnel release. Coding Level of Care Code New Pt Level 4 (82947) Diagnoses Carpal tunnel syndrome of left wrist G56.02 Carpal tunnel syndrome of right wrist G56.01
== END 2023-10-12 11:39 | disposition home or self-care (01) ==
PROVIDERS: PCP Internal Medicine
DX: G56.03 Carpal tunnel syndrome, bilateral upper limbs (principal)
CPT/HCPCS: 99214

== ENCOUNTER → 2023-10-12 10:55 | Outpatient (BNVA) | payer BC, SELFPAY | PROVIDERS: PCP Internal Medicine ==

== ENCOUNTER 2023-12-31 11:20 | Day surgery (SDC) | payer BC, SELFPAY ==
[2023-12-31 12:49] VITALS: BMI 27.4
--- NOTE | 2023-12-31 13:52 | MHC.SHP ---
Pre-Procedural Eval Section A - 24 Hr Update-Section A only Date of Service: 12/31/23 The patient is an INPATIENT: No Changes since office visit: No Cold of Flu in the past 2 weeks, No New Medical Problems, No Changes in Medication and No Patient answered all questions The patient has been examined within 24 hours of the surgical procedure. The History & Physical has been completed within 30 days and I have reviewed it.: Yes Section B - Complete if H&P > 30 days Chief Complaint: Carpal tunnel syndrome, left upper limb Allergies: Allergies Allergy/AdvReac Type Severity Reaction Status Date / Time Otezla AdvReac Severe itching Uncoded 10/12/23 11:14 Plan Diagnosis/Plan: Unchanged I have reviewed the history and physical and performed a pertinent physical examination on my patient. No changes have occurred unless specified. Time Spent With Patient Time: Total time managing care of this patient today ____ minutes.
--- NOTE | 2023-12-31 13:53 | W.PM.OPN ---
Operative Note Operative Note Date of Service: 12/31/23 Narrative: Preop diagnosis: 1. Left Carpal tunnel syndrome Postop diagnosis: same Procedure: 1. Left Carpal tunnel release Surgeon: Sonia Caballero MD [employer] Operator: None Anesthesia: local block using 1% lidocaine with epinephrine Findings: Thickened transverse carpal ligament. EBL: Less than 5 mL Specimens: None Complications: None Disposition: Brought to recovery room in stable condition Plan: Follow-up for 10-14 days for wound check and suture removal Indications: The patient is 48 years old, with left carpal tunnel syndrome that has been unresponsive to nonoperative management. The risks and benefits of operative treatment including but not limited to risk of damage to blood vessels, nerves, tendons, infection, persistent pain, persistent symptoms, or possible need for additional surgery were discussed with the patient and the patient wishes to proceed with surgery. Procedure: Once consent was obtained a local block was performed using a combination of 1% lidocaine with epinephrine. The patient was then brought back to the operating suite and placed on the operative table in supine position. The left upper extremity was prepped and draped in a standard surgical fashion. Once assured that we had a good block, a 2.0 cm longitudinal incision was made centered over the carpal tunnel. The incision was made through the skin to the subcutaneous tissues using a #15 blade. Dissection was made down to the level of the transverse carpal ligament with care being taken to protect the palmar cutaneous nerve. Once the transverse carpal ligament was clearly visualized, a longitudinal incision was made in the transverse carpal ligament 1st using a #15 blade, then using tenotomy scissors under direct visualization. Care was taken to look for and protect the motor branch of the median nerve when seen in this area. Once satisfied with our carpal tunnel release the wound was copiously irrigated with normal saline and hemostasis was obtained with a brief period of local pressure. The skin edges were reapproximated with some 5.0 nylon suture material and a sterile dressing was applied. The patient appears to have tolerated the procedure well and with no complications. All digits were well vascularized at the conclusion of the case.
[2023-12-31 14:43] VITALS: BP 105/49; PULSE 58; O2SAT 99
== END 2023-12-31 14:42 | disposition home or self-care (01) ==
PROVIDERS: PCP Internal Medicine; Visit Provider Orthopaedic Surgery
PROC: (CPT 64721; principal; 2023-12-31 12:40)
DX: G56.02 Carpal tunnel syndrome, left upper limb (principal); R20.0 Anesthesia of skin; Z79.51 Long term (current) use of inhaled steroids; Z79.1 Long term (current) use of non-steroidal anti-inflammatories (NSAID); Z79.52 Long term (current) use of systemic steroids; Z88.8 Allergy status to other drugs, medicaments and biological substances; Z79.899 Other long term (current) drug therapy; Z98.890 Other specified postprocedural states; F17.210 Nicotine dependence, cigarettes, uncomplicated
CPT/HCPCS: 64721; J0171

== ENCOUNTER → 2023-12-31 11:20 | Outpatient (BNV) | payer BC, SELFPAY | PROVIDERS: PCP Internal Medicine; Visit Provider Orthopaedic Surgery | DX: M65.321 Trigger finger, right index finger (principal) | CPT/HCPCS: 26055 ==

== ENCOUNTER 2024-01-10 08:09 | Outpatient (REF) | payer BC, SELFPAY ==
[2024-01-10 11:24] LABS: Influenza A PCR NEGATIVE (Negative); Influenza B PCR NEGATIVE (Negative); Resp Syncy Virus RNA Qual PCR NEGATIVE (Negative); SARS COV2 PCR INHOUSE NEGATIVE (Negative)
== END 2024-01-10 08:10 | disposition home or self-care (01) ==
LOC: HO.LAB 08:09
PROVIDERS: Physician Assistant; PCP Internal Medicine
DX: J06.9 Acute upper respiratory infection, unspecified (principal); J32.9 Chronic sinusitis, unspecified; R07.9 Chest pain, unspecified
CPT/HCPCS: 0241U

== ENCOUNTER 2024-01-10 08:09 | Outpatient (AMB) | payer BC, SELFPAY ==
[2024-01-10 09:00] VITALS: BP 104/62; PULSE 67; TEMP 36.8; O2SAT 98; BMI 28.2
--- NOTE | 2024-01-10 09:00 | MHC.OFFWIV ---
Intake Vital Signs 01/10/24 09:00 Height 6 ft Weight 208 lb BMI 28.2 BP 104/62 Blood Pressure Location Rt brachial Position Sitting Pulse 67 Pulse Source Pulse Oximeter Temp 98.2 F Temp Source Oral Pulse Oximetry (%) 98 Oxygen Delivery Method Room Air Intake Visit Reasons: EP Sinus congestion Intake Note: pt c/o sinus congestion, chest tightness, productive cough. Started over a month ago Patient Tobacco Use Status: Current everyday Tobacco user Allergies Otezla Adverse Reaction (Severe, Uncoded 01/10/24 09:02) itching Do you need a note to return to daycare/school/sports/work: No HPI HPI Comments History of Present Illness Details Patient is a 49-year-old male complaining of approximately 1 month of sinus congestion, chest tightness, a productive cough, headaches and a slight sore throat. He states he was given a Z-Casey by his primary care doctor when it 1st started but that did not seem to do anything. He denies any ear pain, shortness of breath, nausea vomiting or diarrhea. He states he has not tried any other [id number] medications to make himself feel better. [facility] Medical History Encounter to establish care Multiple lipomas Lipoma History of Lyme disease Fractured skull Fracture of T12 vertebra Surgical History Status post excision of lipoma (~01/25/23) History of skin surgery Previous back surgery Family History Mother No problems noted. Father Hypertension Social History Housing: Apartment Alcohol intake: current Alcohol intake frequency: a few times a week Patient Tobacco Use Status: Current everyday Tobacco user Tobacco use type: Cigarette Cigarette Packs Per Day: 0.5 Cigarettes Per Day: 10 e-Cigarette/Vaping Use: Never Used Second Hand Smoke Exposure: Yes service: No Current occupational status: employed Current occupation: [employer] comp/ rt hand Cognitive needs: Yes Hearing needs: No Vision needs: No Review of Systems Const All systems reviewed & are unremarkable except as noted in HPI and below Physical Exam Vital Signs: Last Vital Signs Temp 98.2 F 01/10/24 09:00 Pulse 67 01/10/24 09:00 BP 104/62 01/10/24 09:00 Pulse Ox 98 01/10/24 09:00 Oxygen Delivery Method Room Air 01/10/24 09:00 BMI result Body Mass Index 28.2 Const General: cooperative, healthy appearing, comfortable and no acute distress Orientation/consciousness: patient oriented x3 Limitations: no limitations HEENT Head: Yes normal to inspection Ears: hearing grossly normal bilaterally, external ears normal and TM's normal bilaterally General nose exam: Normal external nose present, Normal nares present and No nasal discharge present Face and sinus: Yes normal facial exam and Yes sinus tenderness Mouth: Normal oral and palatal mucosa present and moist mucous membranes Throat: Yes tonsils normal, Yes uvula midline and Yes posterior oropharynx abnormal (Erythema) Eyes General: appearance normal, both eyes and all related structures Neck Neck: Yes normal visual inspection Resp Effort & Inspection: normal respiratory effort, able to speak in complete sentences, Actively coughing, no respiratory distress, not tachypneic, no tripod positioning and no use of accessory muscles Auscultation: clear to auscultation bilaterally Cardio Rate: regular rate Rhythm: regular rhythm Heart sounds: normal S1 and S2 Skin General skin exam: no rashes or lesions noted Neuro General: patient oriented x3 Extrem General: Yes normal to inspection and Yes no clubbing, cyanosis or edema Assessment & Plan Assessment & Plan (1) Sinusitis: Code(s): J32.9 - Chronic sinusitis, unspecified Qualifiers: Sinusitis location: unspecified location Chronicity: unspecified Qualified Code(s): J32.9 - Chronic sinusitis, unspecified Plan: Vital signs are stable, patient well-appearing, sent Augmentin to pharmacy for what is likely a bacterial sinusitis as it has been a month. Educated patient on using a Neti pot with distilled water as well as Flonase when he gets a sinus infection. We also sent flu COVID and RSV testing today. Plan See above Orders: Orders SARS-CoV2/FLU/RSV Today J06.9 - Acute upper respiratory infection, unspecified Medications: New amoxicillin-pot clavulanate 875-125 mg 1 tab PO Q12H 10 tabs 0RF Coding Level of Care Code Est Pt Level 3 (73951) Diagnoses Sinusitis, unspecified chronicity, unspecified location J32.9 Sinusitis location: unspecified location Chronicity: unspecified
== END 2024-01-10 10:05 | disposition home or self-care (01) ==
PROVIDERS: PCP Internal Medicine; Visit Provider Physician Assistant
DX: J32.9 Chronic sinusitis, unspecified (principal)

== ENCOUNTER 2024-01-16 11:27 | Outpatient (AMB) | payer BC, SELFPAY ==
[2024-01-16 11:48] VITALS: BMI 27.1
--- NOTE | 2024-01-16 11:48 | MHC.OFFVIS ---
Vital Signs 01/16/24 11:48 Height 6 ft Weight 200 lb BMI 27.1 Handedness Right Intake Visit Reasons: PO LT CTR 12/31/23 AR Intake Note: Michael is a 49 year old right hand dominant male who presents today post operatively s/p Left Carpal Tunnel Release DOS: 12/31/23 w/ Dr Caballero. Patient reports he does not have as much numbness and tingling, says he has a little bit in 3rd, 4th and 5th digits of left hand but nothing like it was before. He feels this once or twice a day. He takes ibuprofen as needed for pain and finds relief. Suture removed and steri strips applied. Patient would like to discuss work status. Allergies Otezla Adverse Reaction (Severe, Uncoded 01/16/24 11:49) itching HPI HPI PO LT CTR 12/31/23 AR: Details: Patient is a 49-year-old male who presents for postoperative evaluation status post left carpal tunnel release, DOS 12/31/2023. Today, the patient reports that he is feeling very well, in his experiencing only minimal discomfort in his left hand and wrist. Patient denies any further numbness or tingling in his left hand. Patient does report that he feels sore around the incision site, but states this is improving. Patient denies any erythema or discharge from the incision site. Patient reports that he is able to make a closed fist at this time without difficulty. No other acute complaints or concerns this time. [facility] Medical History Encounter to establish care Multiple lipomas Lipoma History of Lyme disease Fractured skull Fracture of T12 vertebra Surgical History Status post excision of lipoma (~01/25/23) History of skin surgery Previous back surgery Family History Mother No problems noted. Father Hypertension Social History Housing: Apartment Alcohol intake: current Alcohol intake frequency: a few times a week Patient Tobacco Use Status: Current everyday Tobacco user Tobacco use type: Cigarette Cigarette Packs Per Day: 0.5 Cigarettes Per Day: 10 e-Cigarette/Vaping Use: Never Used Second Hand Smoke Exposure: Yes service: No Current occupational status: employed Current occupation: [employer]/ rt hand Cognitive needs: Yes Hearing needs: No Vision needs: No Physical Exam Vital Signs: BMI result Body Mass Index 27.1 Extrem Other: Neuro: normal sensation to the tips of all digits of bilateral hands No thenar or intrinsic wasting. Good APB muscle firing and good finger cross. Vascular: Capillary refill brisk. ROM: Patient can make a fist and extend all their digits. Skin: Well-approximated incision site noted on the volar aspect of the left wrist No evidence of infection General: No ecchymosis. No erythema or evidence of infection. Assessment & Plan Assessment & Plan (1) Carpal tunnel syndrome of right wrist: Code(s): G56.01 - Carpal tunnel syndrome, right upper limb Category: Medical (2) Carpal tunnel syndrome of left wrist: Code(s): G56.02 - Carpal tunnel syndrome, left upper limb Category: Medical Plan 1. Left carpal tunnel syndrome status post carpal tunnel release DOS 12/31/2023 Patient appears to be recovering well postoperatively Patient is educated about the typical recovery course Patient is educated that the discomfort he is experiencing on the radial and ulnar sides of the incision site is likely pillar pain, due to disruption of the carpal tunnel due to carpal tunnel release Patient is educated that continuing with range of motion and conservative pain management measures should resolve this over time Patient is amenable to this plan 2. Right carpal tunnel syndrome Symptoms intermittent, almost daily, worse at night The patient states he would like to hold off on any potential surgical intervention on the right until approximately September of next year Patient is educated on the risks of delaying surgical intervention for carpal tunnel syndrome, namely dense numbness and APB muscle belly wasting Patient understands these risks If the patient begins to notice any acute worsening of his symptoms, he will call our office for sooner evaluation and discussion of surgical intervention at that time Patient is advised that he should call our office later this year or early next year if he does not notice any worsening of the symptoms to book a follow-up appointment and discuss surgical intervention for September Patient is amenable to this plan Patient will follow-up as needed with any acute concerns Coding Level of Care Code Global (16170) Diagnoses Carpal tunnel syndrome of right wrist G56.01 Carpal tunnel syndrome of left wrist G56.02
== END 2024-01-16 12:13 | disposition home or self-care (01) ==
PROVIDERS: PCP Internal Medicine
DX: G56.03 Carpal tunnel syndrome, bilateral upper limbs (principal)
CPT/HCPCS: 99024

== ENCOUNTER → 2024-01-16 11:27 | Outpatient (BNVA) | payer BC, SELFPAY | PROVIDERS: PCP Internal Medicine ==

== ENCOUNTER 2024-03-03 15:54 | Outpatient (REF) | payer BC, SELFPAY ==
--- NOTE | ~2024-03-03 | XR_ITS ---
EXAMINATION: Radiograph pre-MRI screening CLINICAL INDICATION: Pre-MRI screening. COMPARISON: No similar priors. TECHNIQUE: 3 views of the skull were obtained. FINDINGS: No unexpected radiopaque foreign bodies. Paranasal sinuses are grossly clear. No displaced osseous fractures. XR/XR pre mri screening IMPRESSION: No unexpected radiopaque or metallic bodies. Electronically signed by: Peyton Carlos MD 03/03/2024 05:21 PM [facility] [place], [place]
== END 2024-03-03 15:55 | disposition home or self-care (01) ==
LOC: HO.MRI 15:54
PROVIDERS: PCP Internal Medicine; Visit Provider Internal Medicine
DX: M54.12 Radiculopathy, cervical region (principal)
CPT/HCPCS: 72141

== ENCOUNTER 2024-03-26 14:49 | Outpatient (AMB) | payer BC, SELFPAY ==
[2024-03-26 14:50] VITALS: BP 110/76; PULSE 69; O2SAT 97; BMI 28.5
--- NOTE | 2024-03-26 14:50 | A.OFFPC_ITS ---
Vital Signs 03/26/24 14:50 Height 6 ft Weight 210 lb 4 oz BMI 28.5 BP 110/76 Blood Pressure Location Lt brachial Position Sitting Pulse 69 Pulse Source Pulse Oximeter Pulse Oximetry (%) 97 Oxygen Delivery Method Room Air Intake Visit Reasons: annual exam Copyright Manager Required: No Accompanied by: Self / Same As Patient Allergies Otezla Adverse Reaction (Severe, Uncoded 03/26/24 15:16) itching Medication List - Last Reconciled 03/26/24 by Griselda Chung PA-C guselkumab (Tremfya) mg subcut ibuprofen 600 mg PO Q8H PRN Tobacco use date assessed: 03/26/24 Dental Screening Dental Screen Date: 03/26/24 Did you have a dental visit in the last 12 months?: Yes Did you have a dental problem in the last 6 months where you did not have access to dental care?: No Was dental information given to patient?: Patient has dentist HPI HPI Comments History of Present Illness Details The patient is a 49-year-old male presenting for his annual exam. In Addition he is concerned with nasal congestion. He reports experiencing sinusitis frequently and notes that this year he has had more episodes. The patient describes persistent pressure in the sinuses for the past one to two weeks, associated with greenish to brownish nasal mucus and increased coughing. He reports visiting urgent care twice for similar issues earlier this year, with the last course of antibiotics being a couple of months ago, providing partial relief. Patient reports since he stopped smoking he has also had increased in cough and sputum production with yellow/green/brown colored sputum. He denies black or bloody sputum production. Previously, the patient underwent a carpal tunnel release surgery on the left hand in December, with a plan to address the right hand next year. He describes residual pain upon pressure in the operated hand. Patient is reporting some jaw pain when he opens and closes his mouth. The patient also reports quitting smoking one week ago after a 30-year history. 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 Patient reports that he still currently drives and is able to perform all activities of daily living. Patient denies fevers, dizziness, neck pain or stiffness, trouble swallowing or breathing, chest pain or shortness of breath, trouble performing daily activities were going to work. Patient has not had a colonoscopy. Patient reports he is not interested in influenza vaccine at this time. [facility] Medical History Encounter to establish care Multiple lipomas Lipoma History of Lyme disease Fractured skull Fracture of T12 vertebra Surgical History Status post excision of lipoma (~01/25/23) History of skin surgery Previous back surgery Family History Mother No problems noted. Father Hypertension Social History Housing: Apartment Alcohol intake: current Alcohol intake frequency: a few times a week Patient Tobacco Use Status: Former Tobacco user Tobacco use type: Cigarette Cigarette Packs Per Day: 0.5 Cigarettes Per Day: 10 e-Cigarette/Vaping Use: Never Used Second Hand Smoke Exposure: Yes service: No Current occupational status: employed Current occupation: [employer] hand Cognitive needs: Yes Hearing needs: No Vision needs: No Questionnaire PHQ-9 Over the last 2 weeks, how often have you been bothered by any of the following problems? 1. Little interest or pleasure in doing things: not at all 2. Feeling down, depressed, or hopeless: not at all 3. Trouble falling or staying asleep, or sleeping too much: several days 4. Feeling tired or having little energy: several days 5. Poor appetite or overeating: several days 6. Feeling bad about yourself - or that you are a failure or have let yourself or your family down: not at all 7. Trouble concentrating on things, such as reading the newspaper or watching television: several days 8. Moving or speaking so slowly that other people could have noticed. Or the opposite - being so fidgety or restless that you have been moving around a lot more than usual: not at all 9. Thoughts that you would be better off or of hurting yourself in some way: not at all Total score: 4 Depression Screening Interpretation: Positive Depression Screening Done: Yes Source: Developed by Drs. Erasmo Lobato, Nae Little, Mitesh Frank and colleagues, with an educational len from [facility]. Thrive Questionnaire Date Thrive assessed: 03/26/24 I am a: Patient What is your living situation today?: I have a steady place to live Within the past 12 months, did the food you bought not last and you didn't have the money to get more?: Never true Within the past 12 months, did you worry whether your food would run out before you got money to buy more?: I choose not to answer this question Do you have trouble paying for medicines?: No Do you have trouble getting transportation to medical appointments?: No Do you have trouble paying your heating and electricity bill?: No Do you have trouble taking care of your child, family member or friend?: No Do you have trouble with day-to-day activities such as bathing, preparing meals, shopping, managing finances, etc.?: No Are you currently unemployed and looking for a job?: No Are you interested in more education?: No Please select the resources that you would like help with: None Currently or been in a relationship where the following occur: I choose not to answer THRIVE Score: 0 AUDIT C Alcohol Use Questionnaire (AUDIT-C) 1. How often do you have a drink containing alcohol?: 2-4 times a month 2. How many drinks containing alcohol do you have on a typical day when you are drinking?: 5 or 6 3. How often do you have six or more drinks on one occasion?: Weekly Total Score: 7 CHAD-7 AMB Questionnaire CHAD-7 Date HCAD - 7 assessed: 03/26/24 Feeling nervous, anxious, or on edge: 1 = Several days Not being able to stop or control worryin = Not at all Worrying too much about different things: 1 = Several days Trouble relaxin = Several days Being so restless that it is hard to sit still: 1 = Several days Becoming easily annoyed or irritable: 1 = Several days Feeling afraid as if something awful might happen: 0 = Not at all Total CHAD-7 score (0-4 normal; 5-9 mild; 10-14 moderate; 15-21 severe): 5 Source: Developed by Drs. Erasmo Lobato, Nae Little, Mitesh Frank and colleagues, with an educational len from [employer] Review of Systems Const Details: - Eyes: Reports light sensitivity at night. - General: Denies chest pain, shortness of breath, leg swelling, dizziness, and changes in bowel habits. - Genitourinary: Denies difficulty with urination or changes. All systems reviewed & are unremarkable except as noted in HPI and below Physical exam (Primary Care) Vital Signs: Last Vital Signs Pulse 69 03/26/24 14:50 BP 110/76 03/26/24 14:50 Pulse Ox 97 03/26/24 14:50 Oxygen Delivery Method Room Air 03/26/24 14:50 Vital signs have been reviewed and are within normal limits. BMI result Body Mass Index 28.5 Tobacco/Smoking Status: Tobacco use Status Tobacco use date assessed 03/26/24 03/26/24 14:56 Patient Tobacco Use Status Former Tobacco user 03/26/24 15:28 Tobacco use type Cigarette 03/26/24 14:56 e-Cigarette/Vaping Use Never Used 03/26/24 14:56 PHQ-9: PHQ-9 Score PHQ-9: Total score 4 03/27/24 12:14 Depression Screening Interpretation: Positive Thrive Assessment: Date of Thrive Assessment Date Thrive assessed 03/26/24 03/26/24 14:56 Currently or been in a relationship where the following occur: I choose not to answer Const Other: Appearance: Alert. Oriented X3. No acute distress. ? Head: Normal external exam. Normocephalic. Atraumatic.? Eyes: PERRLA. EOMI. Conjunctiva and sclera normal. Eyelids normal. ? ENT: EAC normal. TM's Normal. Pharynx normal. Uvula midline. Moist mucous membranes. Normal external nose present, nasal congestion with yellow/green m ucus present. Tenderness upon palpation to the right TMJ with clicking. No dislocations noted. ? No trismus noted.? No drooling noted.? No muffled voice noted. Neck: Normal inspection. Neck supple. FROM. No adenopathy. Thyroid Normal. No meningeal signs. No neck mass noted. CVS: Normal heart rate and rhythm. Heart sound normal. No murmurs noted. Pulses normal throughout. Respiratory: No respiratory distress. Painless inspiration. Breath sounds normal. No wheezes/rales/rhonchi noted. Chest nontender. ? No accessory muscle usage noted or decreased air movement noted. Abdomen: Soft and nontender. Bowel sounds normal in all 4 quadrants. No distention noted.? No organomegaly noted.? No visible injury noted. Back: ?No CVA tenderness.? Full range of motion noted. Skin: Skin warm and dry.? Normal skin color.? Normal skin turgor. No rashes/lesions/lacerations noted. Extremities: No lower extremity edema. ? Extremities exhibit normal range of motion.? Extremities nontender. Neuro: Oriented X 3.? No motor deficit.? No sensory deficit.? Reflexes normal. 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 (2) Screening for colon cancer: Code(s): Z12.11 - Encounter for screening for malignant neoplasm of colon Category: Medical Plan: Patient will have colonoscopy ordered at this time. (3) Nicotine dependence: Comment: Smoke 1/2 ppd x 30 years Code(s): F17.200 - Nicotine dependence, unspecified, uncomplicated Category: Medical Plan: Patient has not smoked for a week. Patient not interested in any medical treatments for smoking cessation. Condition is stable. (4) Carpal tunnel syndrome of right wrist: Code(s): G56.01 - Carpal tunnel syndrome, right upper limb Category: Medical Plan: Condition is stable patient has surgery scheduled in July. (5) Carpal tunnel syndrome of left wrist: Code(s): G56.02 - Carpal tunnel syndrome, left upper limb Category: Medical Plan: Status post carpal tunnel release surgery. Patient has residual pain. Has follow-up in July. Condition is stable. (6) Sinusitis: Code(s): J32.9 - Chronic sinusitis, unspecified Category: Medical Qualifiers: Chronicity: unspecified Sinusitis location: unspecified location Qualified Code(s): J32.9 - Chronic sinusitis, unspecified Plan: Patient with acute sinusitis. No labs or imaging indicated. Patient will be started on Augmentin. (7) TMJ syndrome: Code(s): M26.629 - Arthralgia of temporomandibular joint, unspecified side Category: Medical Plan: Patient not having any difficulties. Patient instructed to utilize muscle relaxers, NSAIDs or mouth guards at nighttime to prevent grinding of teeth. Condition is stable. Plan - Normal annual physical exam without any abnormal findings. - Recurrent Sinusitis and Post-Nasal Drip: Patient will be prescribed Augmentin for sinus infection - Temporomandibular Joint Disorder: Review potential use of muscle relaxants for symptom relief, particularly with night-time teeth grinding. - Carpal Tunnel Syndrome: Follow-up on the plan for surgical intervention on the right hand in coordination with upcoming foot surgery. - Nicotine Dependence in Remission: Commend the patient on cessation; offer ongoing support and interventions as needed. - colonoscopy will be ordered at this time. - fasting blood work will be ordered at this time. -patient to return in 6 months for follow-up Patient was informed and verbally consented to the use of an ambient scribe for clinic note documentation during this visit. Orders: Orders Comprehensive [place]. Panel Fast 03/26/24 Z00.00 - Encounter for general adult medical examination without abnormal findings Hemoglobin A1c 03/26/24 Z00.00 - Encounter for general adult medical examination without abnormal findings TSH reflex Free T4 03/26/24 Z00.00 - Encounter for general adult medical examination without abnormal findings Complete Blood Count Auto Diff 03/26/24 Z00.00 - Encounter for general adult medical examination without abnormal findings Lipid Panel 03/26/24 Z00.00 - Encounter for general adult medical examination without abnormal findings PSA,Total (Free>4and<10) 03/26/24 Z00.00 - Encounter for general adult medical examination without abnormal findings Referrals Gastroenterology Referral Z12.11 - Encounter for screening for malignant neoplasm of colon Medications: New amoxicillin-pot clavulanate 875-125 mg 1 tab PO BID 14 tabs 0RF sinusitis
== END 2024-03-26 15:16 | disposition home or self-care (01) ==
PROVIDERS: PCP Internal Medicine; Visit Provider Physician Assistant Medical
DX: Z00.00 Encounter for general adult medical examination without abnormal findings (principal); Z12.11 Encounter for screening for malignant neoplasm of colon; F17.200 Nicotine dependence, unspecified, uncomplicated; G56.03 Carpal tunnel syndrome, bilateral upper limbs; J32.9 Chronic sinusitis, unspecified; M26.629 Arthralgia of temporomandibular joint, unspecified side

== ENCOUNTER → 2024-03-26 14:49 | Outpatient (BNVA) | payer BC, SELFPAY | PROVIDERS: PCP Internal Medicine; Visit Provider Physician Assistant Medical ==

== ENCOUNTER 2024-03-29 07:46 | Outpatient (REF) | payer BC, SELFPAY ==
[2024-03-29 08:45] LABS: MANUAL DIFF FLAG NO
[2024-03-29 10:21] LABS: Basophils Percent Auto 0.5 % (0-2); Eosinophils Absolute Auto 0.2 X10*3/uL (0.0-0.4); Eosinophils Percent Auto 3.3 % (0-4); Hematocrit 40.5 % (42.0-52.0); Hemoglobin 13.9 g/dl (14.0-18.0); Imm Gran Abs Auto 0.04 X10*3/uL (0.00-0.03); Imm Gran Pct Auto 0.7 % (0.0-0.4); Lymphocytes Absolute Auto 1.9 X10*3/uL (1.2-4.9); Lymphocytes Percent Auto 30.4 % (20-40); Mean Corpuscular HGB Conc 34.3 g/dl (31.0-36.0); Mean Corpuscular Hemoglobin 29.5 pg (27.0-33.0); Monocytes Absolute Auto 0.5 X10*3/uL (0.1-1.2); Monocytes Percent Auto 8.2 % (2-11); Neutrophils Absolute Auto 3.5 x10*3/uL (2.0-8.3); Neutrophils Percent Auto 56.9 % (45-73); Platelet Count 226 X10*3/uL (160-400); Red Blood Count 4.71 X10*6/uL (4.60-5.80); Red Cell Distribution Width 12.7 % (11.0-16.0); White Blood Count 6.1 X10*3/uL (4.8-10.8)
[2024-03-29 10:27] LABS: Estimated Average Glucose 111 mg/dL; Hemoglobin A1C 124.2392 umol/L; Hemoglobin A1c % 5.5 % (<6.0); Total Hemoglobin (HGBA1C) 3409.2573 umol/L
[2024-03-29 11:02] LABS: PSA,Total (Free>4and<10) 0.39 ng/mL (0.00-4.00)
[2024-03-29 11:09] LABS: Alanine Aminotransferase 36 U/L (0-40); Albumin Level 3.9 g/dL (3.5-5.0); Alkaline Phosphatase 95 U/L (39-117); Anion Gap 10 (12-20); Aspartate Amino Transferase 28 U/L (5-37); Bilirubin Total 0.3 mg/dL (0.0-1.0); Blood Urea Nitrogen 11 mg/dL (9-16); Calcium 8.8 mg/dL (8.4-10.2); Carbon Dioxide 28 mmol/L (22-29); Chloride 107 mmol/L (96-108); Cholesterol 191 mg/dL (<200); Estimated Glomerular Filt Rate > 60; Glucose Fasting 87 mg/dL (60-99); HDL Cholesterol 42 mg/dL (>40); LDL Cholesterol Calculated 133 mg/dL (<100); Potassium 4.3 mmol/L (3.3-5.1); Sodium 141 mmol/L (135-145); Total Protein 6.5 g/dL (6.5-8.0); Triglycerides 82 mg/dL (<150)
[2024-03-29 11:16] LABS: TSH reflex Free T4 4.68 uIU/mL (0.32-4.0)
== END 2024-03-29 07:47 | disposition home or self-care (01) ==
LOC: HO.LAB 07:46
PROVIDERS: PCP Internal Medicine; Visit Provider Physician Assistant Medical
DX: Z00.00 Encounter for general adult medical examination without abnormal findings (principal); Z12.5 Encounter for screening for malignant neoplasm of prostate; Z13.1 Encounter for screening for diabetes mellitus
CPT/HCPCS: 36415; 80053; 80061; 83036; 84153; 84439; 84443; 85025

== ENCOUNTER 2024-06-28 09:45 | Outpatient (AMB) | payer BC, SELFPAY ==
--- OUTSIDE RECORDS SUMMARY | 2024-06-28 09:47 | XMS_ITS | Clinical Summary ---
Author Organization 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 Name Role Phone Derrick Vinson MD Primary Care Provider [phone] Social History Tobacco Use Types Packs/Day Years Used Date Smoking Tobacco: Never Assessed Sex and Gender Information Value Date Recorded Sex Assigned at Not on file Gender Identity Not on file Sexual Orientation Not on file Plan of Treatment Health Maintenance Due Date Last Done Comments Hepatitis B Vaccines (1 of 3 - 3-dose series) 1974 Hepatitis C Screening 1974 COVID-19 Vaccine (#1) 1974 Depression Screening 1986 Preventative Health Evaluation 01/09/1992 DTap / Tdap / Td (1 - Tdap) 1993 Colon Cancer Screening (Colonoscopy) 2019 Influenza Vaccine (#1) 2023 Shingrix-Zoster Vaccine (1 of 2) 01/09/2024 Pneumococcal Vaccine Aged Out No long er eligible based on patient's age to complete this topic RSV Ped < 20 months Aged Out No longe r eligible based on patient's age to complete this topic Care Teams Truck Body Repairer Relationship Specialty Start Date End Date Derrick Vinson MD [address] [place] [id number] PCP - General Family Medicine 04/01/20
--- OUTSIDE RECORDS SUMMARY | 2024-06-28 09:47 | XMS_ITS ---
Author Organization [facility] Address [address] [place] [address] Care Team Providers Care Lithopone Mill Worker Name Role Phone David Keller Primary Care Provider Raquel Tapia Unavailable [phone] Allergies No Known Allergies REASON FOR VISIT pcp-08/2023, Heel pain Medications Medication SIG (Take, Route, Frequency, Duration) Notes Start Date End Date Status Cyclobenzaprine HCl 5 MG TAKE 1 TABLET B Y MOUTH THREE TIMES DAILY NEEDED FOR MUSCLE SPASM Oral for 10 Days Not-Taking Multivitamin Not-Ramón ing Tremfya Active Sibley 10-325 MG Orally PRN Not -Taking Physical Therapy . . . 2-3x/week for 3- 4 weeks Not-Taking hydrOXYzine HCl 10 MG Oral for 6 Days Not-Taking Piroxicam 20 MG TAKE 1 CAPSULE BY [facility] EVERY DAY WITH FOOD for 30 Not-Taking Ibuprofen 600 MG Oral for 10 Days Not-Taking Social History Tobacco Use: Social History Observation Description Date Details (start date - stop date) Current Smoker NA - NA Tobacco Use/Smoking Question Answer Notes Are you a: current smoker How often do you smoke cigarettes? every day How many cigarettes a day do you smoke? 6-10 Alcohol Screen Question Answer Notes Did you have a drink contain ing alcohol in the past year? Yes How often did you have a dri nk containing alcohol in the past year? 2 to 3 times a week (3 points) Points 3 Interpretation Negative Tobacco use other than smoking: Question Answer Notes Are you an other tobacco user? No Problems Problem Type SNOMED Code ICD Code Onset Dates Problem Status W/U Status Risk Notes Problem Plantar fascial fibromatosis (37895663) Plantar fascial fibromatosis (M72.2) Active confirmed Vital Signs Height 6FT in 03/10/2024 Weight 200 lbs 03/10/2024 BMI 27.12 kg/m2 03/10/2024 Encounters Encounter Location Date Provider Diagnosis [facility] [address] 03/10/2024 Raquel Tapia Plantar fascial fibromatosis M72.2 ; Pain of left heel M79.672 and Pain of right heel M79.671 Assessments Encounter Date Diagnosis (ICD Code) Assessment Notes Treatment Notes Treatment Clinical Notes Section Notes 03/10/2024 Plantar fascial fibromatosis (ICD-10 - M72.2) 03/10/2024 Pain of left heel (ICD-10 - M79.672) 03/10/2024 Pain of right heel (ICD-10 - M79.671) Plan Of Treatment Next Appt Details Follow Up: prn, Reason: Provider Name:Raquel marquez, 09/18/2024 02:45:00 PM, [address] [place] [address], [phone], Provider Name:Raquel marquez, 10/01/2024 08:30:00 AM, [address] [place], [address], Provider Name:Raquel marquez, 10/06/2024 01:45:00 PM, [address] [place] [address], [address], Provider Name:Raquel marquez, 10/13/2024 01:45:00 PM, [address] [place] [address], [phone], Provider Name:Raquel marquez, 10/27/2024 01:45:00 PM, [address] [place] [address] [place], [address], Procedure Notes * Category Sub-Category Detail Notes Injection Tendon Sheath or Fascia 65932, J 3702 Injection - #2 RIGHT foot, Plantar Fascia w/ mixture of Celestone Soluspan 3mg and 1cc 1 percent Xylocaine Plain anes. utilizing aseptic technique. The patient tolerated the procedure well. A dry sterile dressing was applied. Post injection instructions were dispensed, verbally discussed, and confirmed understood by the patient. I explained that a steroid and local anesthetic injections are administered to relieve pain and inflammation and thereby meant to improve function. I explained the possible complications including but not limited to signs/symptoms of steroid flare, infection, bruising, atrophy, discoloration of skin, change/deviation in toe position, and that additional injections may be necessary, Patient relates post-procedural pain assessment improved at ( 0-1) out of 10 Progress Notes * Lauryn STACKOB:1975 (49 yo M)Acc No.[id number]:03/10/2024 Progress Note Patient:?Michael STACK Provider:?Raquel Tapia DPM :1975???Age:49 Y???Sex:Male Delano e:03/10/2024 Address:[address] [place] [address] Subjective: * Chief Complaints: * ???Pcp-08/2023Heel pain * HPI: ???Heel pain:?Nature:?tenderness, sharp pain, stiffness, aching.?Location:?Proximal plantar aspect of Heel , RIGHT greater than Left.?Duration:?a year or more.?Onset/Cause:?gradual denies trauma unknown.?Course:?unresolved , worse.?Aggravated:?standing, walking, walking first thing in the morning/after rest.?Treatments:?gel cushions change in shoes , Pre-puja innersoles , AFO- nightsplint , stretching , physical therapy, corticosteriod injection x 2 with minimal improvement, ice, was out of work for about 6 weeks recovering from hand surgery this fall and saw no improvement in foot pain.? * ROS:?General/Constitutional:?Nausea?denies.?Vomiting?denies.?Hunger Thirst?denies.?Loss appetite?denies.?Chills?denies.?Fatigue?denies.?Fever?denies.?Night Sweats?denies.?Unexplained weight loss?denies.?Unexplained weight gain?denies.?HEENTM:?Dentures?denies.?Dizziness?denies.?Glasses/contacts?denies.?Retinopathy?de nies.?Blurred/double vision?denies.?TMJ?denies.?Discharge/drainage?denies.?Implants?denies.?Sore throat?denies.?Dental implants?denies.?Hard of hearing ?denies.?Difficulty chewing/swallowing/speaking?denies.?Nose bleeds?denies.?Sore mouth?denies.?Respiratory:?On Oxygen?denies.?Pneumonia/pleurisy?denies.?Bronchitis?denies.?Emphysema?denies.?C oughing?denies.?Cough blood?denies.?Shortness of breath?denies.?Wheezing?denies.?Cardiovascular:?Pacemaker?denies.?MVP?denies.?WPW?denies.?CHF?denies.?Heart attack?denies.?Septal defect?denies.?Rapid beat?denies.?Chest pain ?denies.?Atrial Fib.?denies.?Murmur/Palpitations?denies.?Gastrointestinal:?Hemorrhoids?denies.?Stomach/Abdominal pain?denies.?Dark blood stool?denies.?Irritable bowel ?denies.?Constipation?denies.?Diarrhea?denies.?Hematology:?Swelling?denies.?Clots?denies.?Varicose Veins?denies.?Bruising?denies.?Bleeding problem?denies.?Genitourinary:?Blood urine?denies.?Frequent/Painfu/urination/bladder control?denies.?Kidney stones?denies.?Infection (UTI)?denies.?Nephropathy?denies.?sex trans dis (STD)?denies.?Prostate?denies.?Musculoskeletal:?Hammertoes?denies.?Bunions?denies.?Back Pain?admits.?Muscle Cramps/ Resting?admits.?Muscle cramps / walking?admits.?Generalized aches and pains?admits.?Weakness?denies.?Integ.:?Miller?denies.?Scars?denies.?Corns/calluses?denies.?Ingrown nails?denies.?Painful nails?denies.?Open Sores?denies.?Rashes?denies.?Neurologic:?Difficulty sleeping?denies.?Brain disorder?denies.?Numbness?denies.?Balance trouble?denies.?Confusion?denies.?Fainting/blackouts?denies.?Tingling?denies.?Tr emors?denies.? * Medical History:? * Surgical History:?skull /0 06/1993back fusion 2001Back Surgery 2000,04/11,12/11carpal tunnel surgery 12/2023 * Hospitalization/Major Diagno stic Procedure:?Denies Past Hospitalization * Family History:?Mother: roni soto?Father: alive, diagnosed with Family history of arthritis.?Maternal uncle: diagnosed with Unspecified cerebral artery occlusion with cerebral infarction.? * Social History:?Tobacco Use:?Tobacco Use/Smoking?Are you a:?current smoker ?How often do you smoke cigarettes??every day ?How many cigarettes a day do you smoke??6-10 ?Tobacco use other than smoking?Are you an other tobacco user??No ???Drugs/Alcohol:?Drugs?Have you used drugs other than those for medical reasons in the past 12 months??Yes ?Marijuana??Yes smokes marijuana daily ?Alcohol Screen?Did you have a drink containing alcohol in the past year??Yes ?How often did you have a drink containing alcohol in the past year??2 to 3 times a week (3 points) ?Points?3 ?Interpretation?Negative ???Miscellaneous:?Caffeine: yes, frequency:, 1-2 cups per day. ?Children: yes, 2. ?Exercise: yes, hiking, working on cars, boating. ?Marital status: . 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 * Medications:?TakingTremfya T aking Tremfya Not-Taking/PRNPhysical Therapy . . . . 2-3x/week Multivitamin Cyclobenzaprine HCl 5 MG Tablet TAKE 1 TABLET BY MOUTH THREE TIMES DAILY NEEDED FOR MUSCLE SPASM Oral hydrOXYzine HCl 10 MG Tablet Oral Ibuprofen 600 MG Tablet Oral Piroxicam 20 MG Capsule TAKE 1 CAPSULE BY MOUTH EVERY DAY WITH FOOD Sibley 10-325 MG Tablet Orally PRN Medication List reviewed and reconciled with the patientNot-Taking/PRN Physical Therapy . . . . 2-3x/week Not-Taking/PRN Multivitamin Not-Taking/PRN Cyclobenzaprine HCl 5 MG Tablet TAKE 1 TABLET BY MOUTH THREE TIMES DAILY NEEDED FOR MUSCLE SPASM Oral Not-Taking/PRN hydrOXYzine HCl 10 MG Tablet Oral Not-Taking/PRN Ibuprofen 600 MG Tablet Oral Not-Taking/PRN Piroxicam 20 MG Capsule TAKE 1 CAPSULE BY MOUTH EVERY DAY WITH FOOD Not-Taking/PRN Sibley 10-325 MG Tablet Orally PRN Medication List reviewed and reconciled with the patient * Allergies:?N.K.D.A.yes[Aller gies Verified] Objective: * Vitals:?Ht: 6FT, Wt:200, BMI :27.12, Shoe size: 12.5-13, Ht-cm: 182.88 cm, Wt-k.72 kg. * Examination: ???General Examination: ?GENERAL APPEARANCE:?Reveals a pleasant, alert, well nourished, well developed, well hydrated individual, who demonstrates proper attention to hygene/body habitus, and is in no acute distress.?ORIENTED:?person, place, and time.?Neurological: ?SENSORY:?Neurological exam reveals intact sensorium, pain sensation normal, vibration sensation intact, pinprick sensation is normal in the lower extremities, Pt denies, anesthesia, burning, paresthesia, tingling, B/L.?TINEL'S COMPRESSION:?Negative tarsal tunnel, juan pedis, and medial calcaneal nerves.?DEEP TENDON REFLEXES:?Achilles, 2/4, B/L.?Vascular: ?DP PULSES (B):?3/4, B/L.?PT PULSES (B):?3/4, B/L.?CAPILLARY FILL TIME:?immediate, all digits, B/L.?TROPHIC CONDITION-TEXTURE/ELASTICITY/TURGOR/HAIR GROWTH (B):?normal, B/L.?TEMPERTURE GRADIENT (C):?warm to cool, proximal to distal, B/L.?PIGMENTATION:?normal, B/L.?EDEMA (C):?absent, B/L.?Dermatologic: ?SKIN FINDINGS:?Skin exam reveals normal texture, elasticity, and turgor. There are no masses. The interspaces are clear.?Orthopedic: ?MUSCLE STRENGTH:?5/5 all groups in a symmetrical fashion , B/L.?Heel Pain: ?INSPECTION REVEALS:?RIGHT foot, Pain on Palpation to Plantar Fascia med. and central bands, intrinsic musc., infra-calcaneal bursa, and med calc tubercle, No pain: posterior/superior heel, achilles bursa/tendon, sinus tarsi, peroneals, or with lateral heel compression; no limited STJ ROM, calor, or ecchymosis.? Assessment: * Assessment: 1.?Plantar fascial fibromato sis - M72.2 (Primary)???2.?Pain of left heel - M79.672???3.?Pain of right heel - M79.671??? Plan: * Treatment: * Procedures:?Injection:?Tendon Sheath or Fascia?55371, J0702 Injection - #2 RIGHT foot, Plantar Fascia w/ mixture of Celestone Soluspan 3mg and 1cc 1 percent Xylocaine Plain anes. utilizing aseptic technique. The patient tolerated the procedure well. A dry sterile dressing was applied. Post injection instructions were dispensed, verbally discussed, and confirmed understood by the patient. I explained that a steroid and local anesthetic injections are administered to relieve pain and inflammation and thereby meant to improve function. I explained the possible complications including but not limited to signs/symptoms of steroid flare, infection, bruising, atrophy, discoloration of skin, change/deviation in toe position, and that additional injections may be necessary, Patient relates post-procedural pain assessment improved at ( 0-1) out of 10.? * Procedure Codes:? * Preventive Medicine:? ??Counseling:?Tobacco use:?Type of Tobacco Use Cessation Counseling provided?Smoking effects education ?Patient counseled on the dangers of smoking and urged to quit:?03/10/2024 ?Discussion:?-14: Office or other outpatient visit for the evaluation and management of an established patient, which required a medically appropriate history and/or examination and MODERATE level of DECISION MAKING for: 1 OR MORE CHRONIC PROBLEM(S) THATS WORSENING, 2 STABLE CHRONIC PROBLEMS, A NEWLY DIAGNOSED PROBLEM WITH UNCERTAIN PROGNOSIS, AN ACUTE COMPLICATED INJURY WITH MULTIPLE TREATMENT OPTIONS, OR AN ACUTE PROBLEM WITH ACCOMPANYING SYSTEMIC SYMPTOMS, THAT POSE(S) A MODERATE RISK OF MORBIDITY. THIS CONDITION MAY ALSO INCLUDE RX DRUG MANAGEMENT, OR A DECISON FOR MINOR SURGERY. The visit on the day of the encounter encompassed interpreting the data and educating the patient as to the nature of their condition, treatment options available according to their individual PMH, meds, allergies, and overall health/living conditions, as well as any potential risks or complications that may occur from a failure to adhere to, and participate in, the recommended course of therapy. The discussion included a complete verbal, and/or written explanation of the examination results, any x-rays taken, the proposed diagnosis, and outline of the treatment plan. A schedule for future care needs was also explained. The patient verbalized an understanding of the instructions at this time and agreed to be an active participant in their treatment. If the patient should think of any questions or concerns after the visit, I have encouraged the patient to call the office; pt to avoid being barefoot whenever walking.?Consult:?The patient was counseled on the diagnosis, treatment options, and the need for a, MRI, Pt indicated understanding the recommendations and accepts this treatment plan. An appointment will be made for the patient , Tony was contacted.?Heel pain:?Discussed other tx options for the patients condition, The Patient is now considering surgical tx, discussed need for MRI prior to surgery to confirm diagnosis as pt has failed all conservative therapies thus far.? * Follow Up:?prn * Images: * Sign off status: Completed true * Provider:?Raquel Tapia DPM Date:? Generated for Melanie wasserman/Moreno/[place] on:?06/28/2024 09:47 AM EST History and Physical Notes * HPI (History of Present Illness) Category Sub-Category Detail Notes Category Not es Heel pain Duration: a year or more Nature: tenderness, sharp pa in, stiffness, aching Location: Proximal plantar asp ect of Heel , RIGHT greater than Left Onset/Cause: gradual denies traum a unknown Aggravated: standing, walking, w alking first thing in the morning/after rest Course: unresolved , worse Treatments: gel cushions change in shoes , Pre-puja innersoles , AFO-nightsplint , stretching , physical therapy, corticosteriod injection x 2 with minimal improvement, ice, was out of work for about 6 weeks recovering from hand surgery this fall and saw no improvement in foot pain Examination Category Sub-Category Detail Notes Category Not es Heel Pain INSPECTION REVEALS: RIGHT foot, Pain on Palpation to Plantar Fascia med. and central bands, intrinsic musc., infra-calcaneal bursa, and med calc tubercle, No pain: posterior/superior heel, achilles bursa/tendon, sinus tarsi, peroneals, or with lateral heel compression; no limited STJ ROM, calor, or ecchymosis Neurological SENSORY: Neurological exa m reveals intact sensorium, pain sensation normal, vibration sensation intact, pinprick sensation is normal in the lower extremities, Pt denies, anesthesia, burning, paresthesia, tingling, B/L TINEL'S COMPRESSION: Negative tarsal homar trish, juan pedis, and medial calcaneal nerves DEEP TENDON REFLEXES: Achilles, 2/4, B/L Dermatologic SKIN FINDINGS: Skin exam reveal s normal texture, elasticity, and turgor. There are no masses. The interspaces are clear Orthopedic MUSCLE STRENGTH: 5/5 all groups in a symm etrical fashion , B/L General Examination GENERAL APPEARANCE: Reveals a pleasant, alert, well nourished, well developed, well hydrated individual, who demonstrates proper attention to hygene/body habitus, and is in no acute distress ORIENTED: person, place, and t zohaib Vascular DP PULSES (B): 3/4, B/L PT PULSES (B): 3/4, B/L CAPILLARY FILL TIME: immediate, all digi ts, B/L TEMPERTURE GRADIENT (C): warm to cool, p roximal to distal, B/L TROPHIC CONDITION-TEXTURE/ELASTICITY/TURGOR/HAIR GROWTH (B): normal, B/L EDEMA (C): absent, B/L PIGMENTATION: normal, B/L
--- OUTSIDE RECORDS SUMMARY | 2024-06-28 09:47 | XMS_ITS ---
Author Organization [facility] Address [address] [place] [address] Care Team Providers Care Marine Engineering Professor Name Role Phone Arianna, Kartik Primary Care Provider Raquel Tapia [phone] REASON FOR VISIT sx booking process 10/01/24 Encounters Encounter Location Date Provider Diagnosis [facility] [address] [place] [address] 03/26/2024 Raquel Tapia Plan Of Treatment Next Appt Details Provider Name:Raquel marquez, 09/18/2024 02:45:00 PM, [address] [place] [address], [address], Provider Name:Raquel marquez, 10/01/2024 08:30:00 AM, [address] [place], [address], Provider Name:Raquel marquez, 10/06/2024 01:45:00 PM, [address] [place] [address], [phone], Provider Name:Raquel marquez, 10/13/2024 01:45:00 PM, [address] [place] [address], [address], Provider Name:Raquel marquez, 10/27/2024 01:45:00 PM, [address] [place] [address], [address], Progress Notes * Lauryn STACKOB:1975 (49 yo M)Acc No.[id number]:03/26/2024 Patient:?Michael STACK :1975???Age:49 Y???Sex:Male Address:[address] [place] [address], [place], [address] * * Date:?
--- OUTSIDE RECORDS SUMMARY | 2024-06-28 09:48 | XMS_ITS ---
Author Organization [facility] Address [address] [place] [address] Care Team Providers Care Vacuum Form Operator Name Role Phone Arianna, Kartik Primary Care Provider Raquel Tapia [phone] REASON FOR VISIT MRI RT foot 2023 scanned results into chart Encounters Encounter Location Date Provider Diagnosis [facility] [address] [place] [address] 03/10/2024 Raquel Tapia Plan Of Treatment Next Appt Details Provider Name:Raquel marquez, 09/18/2024 02:45:00 PM, [address] [place] [address], [phone], Provider Name:Raquel marquez, 10/01/2024 08:30:00 AM, [address] [place], [address], Provider Name:Raquel marquez, 10/06/2024 01:45:00 PM, [address] [place] [address], [phone], Provider Name:Raquel marquez, 10/13/2024 01:45:00 PM, [address] [place] [address], [address], Provider Name:Raquel marquez, 10/27/2024 01:45:00 PM, [address] [place] [address], [address], Progress Notes * Lauryn STACKOB:1975 (49 yo M)Acc No.[id number]:03/10/2024 Patient:?Michael STACK :1975???Age:49 Y???Sex:Male Address:[address] [place] [address], [place] [address] * true * Date:? Generated for Rachellei ulx/Moreno/eTransmitting on:?06/28/2024 09:47 AM EST
--- OUTSIDE RECORDS SUMMARY | 2024-06-28 09:48 | XMS_ITS | Patient Health Record ---
Author Organization [facility] Address [address] [place] [address] Care Team Providers Care Production Analyst Name Role Phone David Keller Primary Care Provider [phone] Raquel Tapia Unavailable [phone] Rudy Wall Unavailable [phone] Allergies No Known Allergies Reason For Referral No Information Medications Medication SIG (Take, Route, Frequency, Duration) Notes Start Date End Date Status hydrOXYzine HCl 10 MG Oral for 6 Days Not-Taking Cyclobenzaprine HCl 5 MG TAKE 1 TABLET B Y MOUTH THREE TIMES DAILY NEEDED FOR MUSCLE SPASM Oral for 10 Days Not-Taking Multivitamin Not-Ramón ing Tremfya Active [place] 10-325 MG Orally PRN Not -Taking Piroxicam 20 MG TAKE 1 CAPSULE BY [facility] EVERY DAY WITH FOOD for 30 Not-Taking Ibuprofen 600 MG Oral for 10 Days Not-Taking Physical Therapy . . . 2-3x/week for 3- 4 weeks Not-Taking Social History Tobacco Use: Social History [...] Status Risk Notes Problem Plantar fascial fibromatosis (56776077) Plantar fascial fibromatosis (M72.2) Active confirmed Vital Signs Height 6FT in 03/10/2024 Weight 200 lbs 03/10/2024 BMI 27.12 kg/m2 03/10/2024 Procedures Procedure Date Ordered Date Performed Result Body Sit e 23076,[id number] TENDON SHEATH/LIGAMENT 11/01/2023 N/A Encounters Encounter Location Date Provider Diagnosis [facility] [address] 11/01/2023 Rudy Wall Plantar fascial fibromatosis M72.2 ; Pain of left heel M79.672 and Pain of right heel M79.671 [facility] [address] 03/10/2024 Raquel Tapia Plantar fascial fibromatosis M72.2 ; Pain of left heel M79.672 and Pain of right heel M79.671 [facility] [address] 03/26/2024 Raquel Tapia [address] [address] 11/01/2023 Raquel Tapia [address] [address] 03/10/2024 Raquel Tapia Assessments Encounter Date Diagnosis (ICD Code) Assessment Notes Treatment Notes Treatment Clinical Notes Section Notes 11/01/2023 Plantar fascial fibromatosis (ICD-10 - M72.2) 11/01/2023 Pain of left heel (ICD-10 - M79.672) 03/10/2024 Plantar fascial fibromatosis (ICD-10 - M72.2) 03/10/2024 Pain of left heel (ICD-10 - M79.672) 11/01/2023 Pain of right heel (ICD-10 - M79.671) 03/10/2024 Pain of right heel (ICD-10 - M79.671) Plan Of Treatment Pending Test Test Name Order Date X ray : Foot, left 3V 05/14/2018 X ray : Foot, left 3V 06/13/2022 X ray : Foot, right 3V 06/13/2022 11544,[id number] TENDON SHEATH/LIGAMENT 0 11/01/2023 Next Appt Details Provider Name:Raquel marquez, 09/18/2024 02:45:00 PM, [address] [place] [address], [phone], Provider Name:Raquel Marquez Alyssia jimmy, 10/01/2024 08:30:00 AM, [address] [place], [address], Provider Name:Raquel Marquez Alyssia marquez, 10/06/2024 01:45:00 PM, [address] [place] [address], [address], Provider Name:Raquel Marquez Alyssia jimmy, 10/13/2024 01:45:00 PM, [address] [place] [address], [phone], Provider Name:Raquel Marquez Alyssia jimmy, 10/27/2024 01:45:00 PM, [address] [place] [address], [phone], Insurance Providers Payer Name Payer Address Payer Phone Subscriber Number Group Number Insured Name Patient Relationship to Insured Coverage Start Date Coverage End Date [facility] [address] [place] [address] [phone] [id number] Michael Spears Self - patient is the insured Medical (General) History Medical History History ICD Code Back,Hip,and Knee pain Headaches/Migraines Psoriasis Chicken pox Anxiety Arthritis Depression Lyme disease Neuropathy Psoriasis/eczema Sciatica Surgical History Surgery Date(Month/Year) skull 08/23/1993 back fusion 2001 Back Surgery 2000,04/11,12/11 carpal tunnel surgery 12/2023
[2024-06-28 09:59] VITALS: BP 150/98; PULSE 77; TEMP 36.9; O2SAT 97; BMI 30.1
--- NOTE | 2024-06-28 09:59 | AM.OFFWIN_ITS ---
Intake Vital Signs 06/28/24 09:59 Height 6 ft Weight 222 lb BMI 30.1 BP 150/98 H Blood Pressure Location Lt brachial Position Sitting Pulse 77 Pulse Source Pulse Oximeter Temp 98.5 F Temp Source Oral Pulse Oximetry (%) 97 Oxygen Delivery Method Room Air Intake Visit Reasons: EP-Sinus infection? Patient Tobacco Use Status: Former Tobacco user Allergies Otezla Adverse Reaction (Severe, Uncoded 06/28/24 10:00) itching HPI HPI Comments History of Present Illness Details This is a 49-year-old male who presented to the walk-in clinic complaining of persistent sinus pain/pressure with nasal congestion and green nasal discharge x2 weeks. He states his symptoms started out with viral URI symptoms about 2 weeks ago; however, the remainder of his symptoms have resolved but he continues to have significant sinus pain/pressure and nasal congestion with green nasal discharge. He reports an occasional mild dry cough. He denies any fevers or chills. He denies any chest pain or shortness of breath. [facility] Medical History Encounter to establish care Multiple lipomas Lipoma History of Lyme disease Fractured skull Fracture of T12 vertebra Surgical History Status post excision of lipoma (~01/25/23) History of skin surgery Previous back surgery Family History Mother No problems noted. 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 Cognitive needs: Yes Hearing needs: No Vision needs: No Review of Systems Const All systems reviewed & are unremarkable except as noted in HPI and below Reports no additional complaints Eyes Reports no additional complaints ENT Reports no additional complaints Card Reports no additional complaints Resp Reports no additional complaints GI Reports no additional complaints Reports no additional complaints Musc Reports no additional complaints Skin/Breast Reports system reviewed and no additional complaints, except as documented Neuro Reports no additional complaints Psych Reports no additional complaints Endo Reports no additional complaints Manjeet/Lymph Reports no additional complaints Aller/Immun Reports no additional complaints Physical Exam Vital Signs: Last Vital Signs Temp 98.5 F 06/28/24 09:59 Pulse 77 06/28/24 09:59 BP 150/98 H 06/28/24 09:59 Pulse Ox 97 06/28/24 09:59 Oxygen Delivery Method Room Air 06/28/24 09:59 BMI result Body Mass Index 30.1 Const Other: Vital signs reviewed. Constitutional: Non-toxic appearing. No acute distress. Well-developed and well-nourished. HEENT: Normocephalic and atraumatic. Tympanic membranes without erythema, edema, or bulging bilaterally. External auditory canals without erythema or edema bilaterally. Moist mucous membranes. No pharyngeal erythema or exudates. + Maxillary and frontal sinus tenderness to palpation. Skin: Warm and dry. No rashes or lesions noted. Neck: Full and painless range of motion. No cervical lymphadenopathy. Cardio: Regular rate and rhythm. No murmurs, gallops, or rubs. No lower extremity edema. No JVD. Pulmonary: No respiratory distress. No accessory muscle usage. Clear to auscultation bilaterally without wheezing, crackles, or rhonchi. Gastrointestinal: Soft, nontender, and nondistended in all 4 quadrants. Musculoskeletal: Normal range of motion in joints throughout the body. No deformity or other signs of injury. Neuro: Alert and oriented x4. Cranial nerves 2-12 grossly intact. No focal deficits appreciated. Psych: Normal mood and affect. Assessment & Plan Assessment & Plan (1) Acute bacterial rhinosinusitis: Code(s): J01.90 - Acute sinusitis, unspecified; B96.89 - Other specified bacterial agents as the cause of diseases classified elsewhere Plan: This is a 49-year-old male presented to the walk-in clinic complaining of persistent sinus pain/pressure with rhinorrhea with green nasal discharge x2 weeks. On physical examination, he has mild tenderness to palpation of the frontal and maxillary sinuses. Given duration of his symptoms and + sinus TTP, patient likely has acute bacterial rhinosinusitis. Patient sent home on p.o. amoxicillin/clavulanate 875/125 mg twice daily x7 days. He was instructed to continue symptomatic management such as [id number] decongestants, nasal sprays/rinses, acetaminophen/ibuprofen, and humidification. Patient advised to follow-up here for persistent or worsening symptoms. Patient verbalized understanding and he is in agreement with the plan. Medications: New amoxicillin-pot clavulanate 875-125 mg 1 tab PO BID 14 tabs 0RF Coding Level of Care Code Est Pt Level 3 (29483) Diagnoses Acute bacterial rhinosinusitis J01.90; B96.89
== END 2024-06-28 10:56 | disposition home or self-care (01) ==
LOC: HO.HMCWIC 09:45
PROVIDERS: PCP Internal Medicine; Visit Provider Physician Assistant Medical
DX: J01.90 Acute sinusitis, unspecified (principal); B96.89 Other specified bacterial agents as the cause of diseases classified elsewhere

== ENCOUNTER 2024-09-04 14:54 | Outpatient (AMB) | payer BC, SELFPAY ==
[2024-09-04 14:57] VITALS: BP 110/86; PULSE 63; O2SAT 96; BMI 30.5
--- NOTE | 2024-09-04 14:57 | MHC.PC.OV ---
Vital Signs 09/04/24 14:57 Height 6 ft Weight 225 lb BMI 30.5 BP 110/86 Blood Pressure Location Lt brachial Position Sitting Pulse 63 Pulse Source Pulse Oximeter Pulse Oximetry (%) 96 Oxygen Delivery Method Room Air Intake Visit Reasons: PRE OP Dr. Raquel Kline right foot 10/01 Motor Winder Required: No Accompanied by: Self / Same As Patient Allergies Otezla Adverse Reaction (Severe, Uncoded 09/04/24 15:17) itching Medication List - Last Reconciled 09/04/24 by Griselda Chung PA-C guselkumab (Tremfya) mg subcut ibuprofen 600 mg PO Q8H PRN loratadine (Claritin) 10 mg PO DAILY multivitamin 1 tab PO DAILY Tobacco use date assessed: 09/04/24 Dental Screening Dental Screen Date: 09/04/[address] Raquel Kline right foot 10/01 HPI Details The patient is a 49-year-old male presenting with a request for preoperative clearance due to plantar fasciitis surgery. He has experienced persistent plantar fasciitis for two to three years, unresponsive to previous interventions including ibuprofen. Surgery is scheduled for October 01 at [facility] with Raquel Tapia DPM. The patient's medical history is notable for carpal tunnel syndrome in the right hand, scheduled for intervention on October 29. Additionally, he is being treated for psoriasis with Tremfya. Laboratory assessments in March 2024 indicated mild anemia (hemoglobin 13.9, hematocrit 40.5), elevated cholesterol with an LDL of 133, and an elevated TSH with normal free T4. Social History - Exercise and Activity Level: The patient has adapted by purchasing new socks and shoes to manage plantar fasciitis symptoms. [facility] Medical History (Updated 09/04/24 @ 15:31 by Griselda Chung PA-C) Hyperlipidemia LDL goal <100 Anemia Plantar fasciitis, right Subclinical hypothyroidism Pre-op evaluation Encounter to establish care Multiple lipomas Lipoma History of Lyme disease Fractured skull Fracture of T12 vertebra Surgical History Status post excision of lipoma (~01/25/23) History of skin surgery Previous back surgery Family History Mother No problems noted. Father Hypertension Social History Housing: Apartment Alcohol intake: current Alcohol intake frequency: a few times a week Patient Tobacco Use Status: Former Tobacco user Tobacco use type: Cigarette Cigarette Packs Per Day: 0.5 Cigarettes Per Day: 10 e-Cigarette/Vaping Use: Never Used Second Hand Smoke Exposure: Yes service: No Current occupational status: employed Current occupation: [employer]/ rt hand Cognitive needs: Yes Hearing needs: No Vision needs: No Questionnaire PHQ-9 Over the last 2 weeks, how often have you been bothered by any of the following problems? 1. Little interest or pleasure in doing things: several days 2. Feeling down, depressed, or hopeless: not at all 3. Trouble falling or staying asleep, or sleeping too much: not at all 4. Feeling tired or having little energy: several days 5. Poor appetite or overeating: not at all 6. Feeling bad about yourself - or that you are a failure or have let yourself or your family down: not at all 7. Trouble concentrating on things, such as reading the newspaper or watching television: not at all 8. Moving or speaking so slowly that other people could have noticed. Or the opposite - being so fidgety or restless that you have been moving around a lot more than usual: not at all 9. Thoughts that you would be better off or of hurting yourself in some way: not at all Total score: 2 Depression Screening Interpretation: Negative Depression Screening Done: Yes 35985 - PHQ-9 Billing: Yes Source: Developed by Drs. Erasmo Lobato, Nae Little, Mitesh Frank and colleagues, with an educational len from [employer]. Thrive Questionnaire Date Thrive assessed: 04/23/24 I am a: Patient What is your living situation today?: I have a steady place to live Within the past 12 months, did the food you bought not last and you didn't have the money to get more?: Never true Within the past 12 months, did you worry whether your food would run out before you got money to buy more?: Never true Do you have trouble paying for medicines?: No Do you have trouble getting transportation to medical appointments?: No Do you have trouble paying your heating and electricity bill?: No Do you have trouble taking care of your child, family member or friend?: No Do you have trouble with day-to-day activities such as bathing, preparing meals, shopping, managing finances, etc.?: I choose not to answer this question Are you currently unemployed and looking for a job?: I choose not to answer this question Are you interested in more education?: I choose not to answer this question Please select the resources that you would like help with: None Currently or been in a relationship where the following occur: I choose not to answer THRIVE Score: 0 AUDIT C Alcohol Use Questionnaire (AUDIT-C) 1. How often do you have a drink containing alcohol?: 2-4 times a month 2. How many drinks containing alcohol do you have on a typical day when you are drinking?: 7 to 9 3. How often do you have six or more drinks on one occasion?: Weekly Total Score: 8 Score Reviewed/Action Taken: No CHAD-7 AMB Questionnaire CHAD-7 Date CHAD - 7 assessed: 09/04/24 Feeling nervous, anxious, or on edge: 0 = Not at all Not being able to stop or control worryin = Not at all Worrying too much about different things: 0 = Not at all Trouble relaxin = Several days Being so restless that it is hard to sit still: 0 = Not at all Becoming easily annoyed or irritable: 0 = Not at all Feeling afraid as if something awful might happen: 0 = Not at all Total CHAD-7 score (0-4 normal; 5-9 mild; 10-14 moderate; 15-21 severe): 1 Source: Developed by Drs. Erasmo Lobato, Nae Little, Mitesh Frank and colleagues, with an educational len from [employer]. CHAD-7 Assessment Billing CHAD-7 Assessment Tool: CHAD-7 Assessment 01339 Review of Systems Const Details: - Musculoskeletal: Reports pain in the right foot due to plantar fasciitis, and carpal tunnel syndrome in the right hand. - Endocrine: Denies any known thyroid-related symptoms. - General: Denies any known issues with anesthesia. Physical exam (Primary Care) Vital Signs: Last Vital Signs Pulse 63 09/04/24 14:57 BP 110/86 09/04/24 14:57 Pulse Ox 96 09/04/24 14:57 Oxygen Delivery Method Room Air 09/04/24 14:57 Care Plan Goal for BP management: <130/90 at Goal BMI result Body Mass Index 30.5 BMI Assessment/Plan discussion: High BMI High, discussed plan: lifestyle, weight reduction, dietary, physical activity and alcohol moderation Tobacco/Smoking Status: Tobacco use Status Tobacco use date assessed 09/04/24 09/04/24 15:04 Patient Tobacco Use Status Former Tobacco user 09/04/24 15:04 Tobacco use type Cigarette 09/04/24 15:04 e-Cigarette/Vaping Use Never Used 09/04/24 15:04 PHQ-9: PHQ-9 Score PHQ-9: Total score 2 09/04/24 15:04 Depression Screening Interpretation: Negative Thrive Assessment: Date of Thrive Assessment Date Thrive assessed 04/23/24 09/04/24 15:04 Currently or been in a relationship where the following occur: I choose not to answer Const Other: Appearance: Alert. Oriented X3. No acute distress. Head: Normal external exam. Normocephalic. Atraumatic. Eyes: Pupils are equal, round, and reactive to light. Extraocular movements intact. Conjunctiva and sclera normal. Eyelids normal. Throat: Pharynx normal. Uvula midline. Moist mucous membranes. Neck: Normal inspection. Neck supple. Full range of motion. Cardiovascular: Normal heart rate and rhythm. Heart sound normal. No murmurs noted. Pulses normal throughout. Respiratory: No respiratory distress. Painless inspiration. Breath sounds normal. No wheezes/rales/rhonchi noted. Chest nontender. No accessory muscle usage noted or decreased air movement noted. Back: Full range of motion noted. Skin: Skin warm and dry. Normal skin color. Normal skin turgor. No rashes/lesions/lacerations noted. Extremities: Foot pain with pain to the plantar aspect of the foot consistent with plantar fasciitis. Otherwise all other extremities exhibit normal range of motion nontender at this time. No lower extremity edema or calf tenderness is noted. Neuro: Oriented X 3. No motor deficit. No sensory deficit. Reflexes normal. Results Reviewed Results Reviewed: - Labs: Complete blood count (CBC), basic metabolic panel, EKG pending. Hemoglobin 13.9, hematocrit 40.5 (March 2024). - Tests: Previously recorded cholesterol levels show LDL of 133. TSH 4.68 with normal free T4. Coding Level of Care Code Est Pt Level 4 (47533) Complex EM visit Add On G2211 Diagnoses Pre-op evaluation Z01.818 Plantar fasciitis, right M72.2 Subclinical hypothyroidism E03.8 Carpal tunnel syndrome of right wrist G56.01 Psoriasis L40.9 Anemia D64.9 Hyperlipidemia LDL goal <100 E78.5 Additional Codes PHQ-9 - 50999 - PHQ-9 Billing: Yes ([id number]) CHAD-7 Assessment Billing - CHAD-7 Assessment Tool: CHAD-7 Assessment 33858 ([id number]) Assessment & Plan Assessment & Plan (1) Pre-op evaluation: Code(s): Z01.818 - Encounter for other preprocedural examination Category: Medical (2) Plantar fasciitis, right: Code(s): M72.2 - Plantar fascial fibromatosis Category: Medical Plan: Preoperative clearance for surgical treatment on October 01 involves pending CBC, BMP, and EKG. (3) Subclinical hypothyroidism: Code(s): E03.8 - Other specified hypothyroidism Category: Medical Plan: Re-evaluation planned with current preoperative labs to decide on further interventions. Condition is chronic and stable continue to monitor. (4) Carpal tunnel syndrome of right wrist: Code(s): G56.01 - Carpal tunnel syndrome, right upper limb Category: Medical Plan: Right-hand carpal tunnel condition scheduled for surgical correction on October 29. Condition is chronic and stable continue to monitor. (5) Psoriasis: Comment: Followed by [facility] Code(s): L40.9 - Psoriasis, unspecified Category: Medical Plan: Ongoing treatment with Tremfya. No changes planned. Condition is chronic and stable continue to monitor. (6) Anemia: Code(s): D64.9 - Anemia, unspecified Category: Medical Plan: Anemia detected in March 2024, will be reassessed with preoperative labs. Condition is chronic and stable will continue to monitor. (7) Hyperlipidemia LDL goal <100: Code(s): E78.5 - Hyperlipidemia, unspecified Category: Medical Plan: Patient to the improved diet and exercise regimen. Requires re-evaluation with a fasting lipid profile post clearance tests. Plan Plan Patient was informed and verbally consented to the use of an ambient scribe for clinic note documentation during this visit. 1. Plantar Fasciitis Preoperative clearance for surgical treatment on October 01 involves pending CBC, BMP, and EKG. 2. Carpal Tunnel Syndrome Right-hand carpal tunnel condition scheduled for surgical correction on October 29. 3. Psoriasis Ongoing treatment with Tremfya. No changes planned. 4. Anemia Anemia detected in March 2024, will be reassessed with preoperative labs. 5. Elevated Cholesterol Requires re-evaluation with a fasting lipid profile post clearance tests. 6. Elevated Tsh Re-evaluation planned with current preoperative labs to decide on further interventions. I discussed with the patient the need for preoperative clearance for plantar fasciitis, emphasizing the importance of obtaining updated laboratory tests, including CBC, BMP, and an EKG, to adequately assess surgical risk. We reviewed the plan of care regarding his scheduled surgeries for both plantar fasciitis and the upcoming carpal tunnel repair. Ongoing management of psoriasis with Tremfya will continue, and further lab work related to recent findings of anemia and elevated cholesterol is coordinated alongside thyroid monitoring. I advised the patient regarding these evaluations, emphasizing the importance of fasting for lipid panel, and reassured him regarding the administrative processing and communication of results with his surgical team. Orders: Orders Comprehensive Met. Panel Today Z00.00 - Encounter for general adult medical examination without abnormal findings ECG 12 lead EKG Today Z01.818 - Encounter for other preprocedural examination TSH reflex Free T4 Today Z00.00 - Encounter for general adult medical examination without abnormal findings Vitamin D 25-OH Total Today Z00.00 - Encounter for general adult medical examination without abnormal findings Complete Blood Count Auto Diff Today Z00.00 - Encounter for general adult medical examination without abnormal findings Magnesium Today Z00.00 - Encounter for general adult medical examination without abnormal findings Hemoglobin A1c Today Z00.00 - Encounter for general adult medical examination without abnormal findings Vitamin B12 and Folate Today Z00.00 - Encounter for general adult medical examination without abnormal findings PSA,Total (Free>4and<10) Today Z00.00 - Encounter for general adult medical examination without abnormal findings Lipid Panel Today Z00.00 - Encounter for general adult medical examination without abnormal findings Patient Instructions: - Complete blood work and EKG for surgery clearance. - Follow-up with labs for anemia, cholesterol, and thyroid as discussed. - Schedule and perform a fasting lipid panel at a later date. - Attend scheduled appointments and contact for any changes before surgery. - Ensure results are sent to the respective surgical team.
--- OUTSIDE RECORDS SUMMARY | 2024-09-04 15:38 | XMS_ITS | Patient Health Record ---
[facility] Address [address] [place] [address] Care Team Providers Care Headwaitress Name Role Phone David Keller Primary Care Provider Raquel aTpia Unavailable [phone] Rudy Wall Unavailable [phone] Allergies No Known Allergies Reason For Referral No Information Medications Medication SIG (Take, Route, Frequency, Duration) Notes Start Date End Date Status hydrOXYzine HCl 10 MG Oral for 6 Days Not-Taking Cyclobenzaprine HCl 5 MG TAKE 1 TABLET B Y MOUTH THREE TIMES DAILY NEEDED FOR MUSCLE SPASM Oral for 10 Days Not-Taking Multivitamin Not-Ramón ing Tremfya Active [place] 10-325 MG Orally PRN Not -Taking Piroxicam 20 MG TAKE 1 CAPSULE BY [facility] EVERY DAY WITH FOOD for 30 [...] Status Risk Notes Problem Plantar fascial fibromatosis (M72.2) Active confirmed Vital Signs Height 6FT in 03/10/2024 Weight 200 lbs 03/10/2024 BMI 27.12 kg/m2 03/10/2024 Procedures Procedure Date Ordered Date Performed Result Body Sit e 86867,[id number] TENDON SHEATH/LIGAMENT 11/01/2023 N/A Encounters Encounter Location Date Provider Diagnosis [facility] [address] 11/01/2023 Rudy Wall Plantar fascial fibromatosis M72.2 ; Pain of left heel M79.672 and Pain of right heel M79.[address] [facility] [address] 03/10/2024 Raquel Tapia Plantar fascial fibromatosis M72.2 ; Pain of left heel M79.672 and Pain of right heel M79.[address] [facility] [address] 03/26/2024 Raquel Tapia [address] [address] 11/01/2023 Raquel Tapia [address] [address] 03/10/2024 Raquel Tapia Assessments Encounter Date Diagnosis [...] 06/13/2022 X ray : Foot, right 3V 06/13/[id number] TENDON SHEATH/LIGAMENT 0 11/01/2023 Next Appt Details Provider Name:Raquel Marquez Alyssia marquez, 09/18/2024 02:45:00 PM, [address] [place] [address], [phone], Provider Name:Raquel Marquez Alyssia marquez, 10/01/2024 08:30:00 AM, [address] [facility], [place], [phone], Provider Name:Raquel Marquez Alyssia marquez, 10/06/2024 01:45:00 PM, [address] [place] [address], [phone], Provider Name:Raquel Marquez Alyssia marquez, 10/13/2024 01:45:00 PM, [address] [place] [address], [phone], Provider Name:Raquel Marquez Alyssia marquez, 10/27/2024 01:45:00 PM, [address] [place] [address], [phone], Insurance Providers Payer Name Payer Address Payer Phone Subscriber Number Group Number Insured Name Patient Relationship to Insured Coverage Start Date Coverage End Date [facility] All Others [address] [place] [address] [id number] Michael Spears Self - patient is the insured Medical (General) History Medical History History ICD Code Back,Hip,and Knee pain Headaches/Migraines Psoriasis Chicken pox Anxiety Arthritis Depression Lyme disease Neuropathy Psoriasis/eczema Sciatica Surgical History Surgery Date(Month/Year) skull 08/23/1993 back fusion 2001 Back Surgery 2000,04/11,12/11 carpal tunnel surgery 12/2023
--- OUTSIDE RECORDS SUMMARY | 2024-09-04 15:38 | XMS_ITS ---
Author Organization [facility] Address [address] [place] [address] Care Team Providers Care Pharmacy Customer Care Specialist Name Role Phone David Keller Primary Care Provider Raquel Tapia Unavailable [phone] Allergies No Known Allergies REASON FOR VISIT pcp-08/2023, Heel pain Medications Medication SIG (Take, Route, Frequency, Duration) Notes Start Date End Date Status Cyclobenzaprine HCl 5 MG TAKE 1 TABLET B Y MOUTH THREE TIMES DAILY NEEDED FOR MUSCLE SPASM Oral for 10 Days Not-Taking Multivitamin Not-Ramón ing Tremfya Active [place] 10-325 MG Orally PRN Not -Taking Physical Therapy . . . 2-3x/week for 3- 4 weeks Not-Taking hydrOXYzine HCl 10 MG Oral for 6 Days Not-Taking Piroxicam 20 MG TAKE 1 CAPSULE BY [facility] EVERY DAY WITH FOOD for 30 [...] 03/10/2024 Encounters Encounter Location Date Provider Diagnosis [facility] [address] [address] 03/10/2024 Raquel Tapia Plantar fascial fibromatosis M72.2 [...] Reason: Provider Name:Raquel marquez, 09/18/2024 02:45:00 PM, [address] [place] [address], [address], Provider Name:Raquel marquez, 10/01/2024 08:30:00 AM, [address] [place], [address], Provider Name:Raquel marquez, 10/06/2024 01:45:00 PM, [address] [place] [address], [address], Provider Name:Raquel marquez, 10/13/2024 01:45:00 PM, [address] [place] [address], [address], Provider Name:Raquel marquez, 10/27/2024 01:45:00 PM, [address] [place] [address] [place], [address], Procedure Notes * Category Sub-Category Detail Notes Injection Tendon Sheath or Fascia 21309, J 7802 Injection - #2 RIGHT foot, Plantar Fascia [...] Notes * Lauryn STACKOB:1975 (49 yo M)Acc No.[id number]:03/10/2024 Progress Note Patient:?Michael STACK Provider:?Raquel Tapia DPM :1975???Age:49 Y???Sex:Male Delano e:03/10/2024 Address:[address] [place] [address] Subjective: * Chief Complaints: * ???Pcp-08/2023Heel pain [...] on cars, boating. ?Marital status: . 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 * Medications:?TakingTremfya T aking Tremfya Not-Taking/PRNPhysical Therapy . . . . 2-3x/week Multivitamin Cyclobenzaprine HCl 5 MG Tablet TAKE 1 TABLET BY MOUTH THREE TIMES DAILY NEEDED FOR MUSCLE SPASM Oral hydrOXYzine HCl 10 MG Tablet Oral Ibuprofen 600 MG Tablet Oral Piroxicam 20 MG Capsule TAKE 1 CAPSULE BY MOUTH EVERY DAY WITH FOOD [place] 10-325 MG Tablet Orally PRN Medication List [...] BY MOUTH EVERY DAY WITH FOOD Not-Taking/PRN [place] 10-325 MG Tablet Orally PRN Medication List [...] Plan: * Treatment: * Procedures:?Injection:?Tendon Sheath or Fascia?91990, J0702 Injection - #2 RIGHT foot, Plantar [...] Tapia DPM Date:? Generated for Melanie wasserman/Moreno/[place] on:?09/04/2024 03:37 PM EDT History and Physical Notes * HPI (History [...]
--- OUTSIDE RECORDS SUMMARY | 2024-09-04 15:38 | XMS_ITS ---
Author Organization [facility] Address [address] [place] [address] Care Team Providers Care Patternmaker Sample Name Role Phone AriannaAyushDavid Primary Care Provider Raquel Tapia [phone] REASON FOR VISIT sx booking process 10/01/24 Encounters Encounter Location Date Provider Diagnosis [facility] [address] [place] [address] 03/26/2024 Raquel Tapia Plan Of Treatment Next Appt Details Provider Name:Raquel marquez, 09/18/2024 02:45:00 PM, [address] [place] [address], [address], Provider Name:Raquel marquez, 10/01/2024 08:30:00 AM, [address] [place], [address], Provider Name:Raquel marquez, 10/06/2024 01:45:00 PM, [address] [place] [address], [address], Provider Name:Raquel marquez, 10/13/2024 01:45:00 PM, [address] [place] [address], [address], Provider Name:Raquel marquez, 10/27/2024 01:45:00 PM, [address] [place] [address], [address], Progress Notes * SREEKANTHKiera Simpsony LDOB:[birth year] (49 yo M)Acc No.[id number]:03/26/2024 Patient:?Michael STACK :1975???Age:49 Y???Sex:Male Address:[address] [place] [address], [place] [address] * * Date:?
--- OUTSIDE RECORDS SUMMARY | 2024-09-04 15:38 | XMS_ITS ---
Author Organization [facility] Address [address] [place] [address] Care Team Providers Care Dentistry Professor Name Role Phone AriannaDavid Primary Care Provider Raquel Tapia [phone] REASON FOR VISIT MRI RT foot 2023 scanned results into chart Encounters Encounter Location Date Provider [facility] [address] [place] [address] 03/10/2024 Raquel Tapia Plan Of Treatment Next Appt Details Provider Name:Raquel marquez, 09/18/2024 02:45:00 PM, [address] [place] [address], [address], Provider Name:Raquel marquez, 10/01/2024 08:30:00 AM, [address] [place], [address], Provider Name:Raquel marquez, 10/06/2024 01:45:00 PM, [address] [place] [address], [address], Provider Name:Raquel marqeuz, 10/13/2024 01:45:00 PM, [address] [place] [address], [address], Provider Name:Raquel marquez, 10/27/2024 01:45:00 PM, [address] [place] [address], [address], Progress Notes * Lauryn STACKOB:1975 (49 yo M)Acc No.[id number]:03/10/2024 Patient:?Michael STACK :1975???Age:49 Y???Sex:Male Address:[address] [place] [address], [place] [address] * true * Date:? Generated for Melanie wasserman/Moreno/eTransmitting on:?09/04/2024 03:38 PM EDT
--- OUTSIDE RECORDS SUMMARY | 2024-09-04 15:38 | XMS_ITS | Clinical Summary ---
Author Organization [facility] Address [address] [place] [address] Care Team Providers Care Tin Plater Name Role Phone Derrick Vinson MD Primary Care Provider [phone] Social History Tobacco Use Types Packs/Day Years [...] age to complete this topic Care Teams Tin Plater Relationship Specialty Start Date End Date Derrick Vinson MD [address] [place] [address] PCP - General Family Medicine 04/01/20
== END 2024-09-04 15:28 | disposition home or self-care (01) ==
LOC: HO.HMCH 14:55
PROVIDERS: PCP Internal Medicine; Visit Provider Physician Assistant Medical
DX: Z01.818 Encounter for other preprocedural examination (principal); M72.2 Plantar fascial fibromatosis; E03.8 Other specified hypothyroidism; G56.01 Carpal tunnel syndrome, right upper limb; L40.9 Psoriasis, unspecified; D64.9 Anemia, unspecified; E78.5 Hyperlipidemia, unspecified

== ENCOUNTER → 2024-09-04 14:54 | Outpatient (BNVA) | payer BC, SELFPAY | PROVIDERS: PCP Internal Medicine; Visit Provider Physician Assistant Medical | DX: Z01.818 Encounter for other preprocedural examination (principal); G56.01 Carpal tunnel syndrome, right upper limb; L40.9 Psoriasis, unspecified; M72.2 Plantar fascial fibromatosis; E03.8 Other specified hypothyroidism; E78.5 Hyperlipidemia, unspecified; D64.9 Anemia, unspecified | CPT/HCPCS: 96127 ==

== ENCOUNTER 2024-09-06 07:55 | Outpatient (REF) | payer BC, SELFPAY ==
--- OUTSIDE RECORDS SUMMARY | 2024-09-06 07:57 | XMS_ITS ---
Author Organization [facility] Address [address] [place] [address] Care Team Providers Care Car Wash Attendant Automatic Name Role Phone AriannaDavid Primary Care Provider Raquel Tapia [phone] REASON FOR VISIT MRI RT foot 2023 scanned results into chart Encounters Encounter Location Date Provider Diagnosis [facility] [address] [place] [address] 03/10/2024 Raquel Tapia Plan Of Treatment Next Appt Details Provider Name:Raquel marquez, 09/18/2024 02:45:00 PM, [address] [place] [address], [address], Provider Name:Raquel marquez, 10/01/2024 08:30:00 AM, [address] [place], [address], Provider Name:Raquel marquez, 10/06/2024 01:45:00 PM, [address] [place] [address], [address], Provider Name:Raquel marquez, 10/13/2024 01:45:00 PM, [address] [place] [address], [address], Provider Name:Raquel marquez, 10/27/2024 01:45:00 PM, [address] [place] [address], [address], Progress Notes * Lauryn STACKOB:1975 (49 yo M)Acc No.[id number]:03/10/2024 Patient:?Michael STACK :1975???Age:49 Y???Sex:Male Address:[address] [place] [address], [place] [address] * true * Date:? Generated for Melanie wasserman/Moreno/eTransmitting on:?09/06/2024 07:56 AM EDT
--- OUTSIDE RECORDS SUMMARY | 2024-09-06 07:57 | XMS_ITS | Patient Health Record ---
Author Organization [facility] Address [address] [place] [address] Care Team Providers Care Courier Delivery Driver Name Role Phone David Keller Primary Care Provider [phone] Raquel Tapia Unavailable [phone] Rudy Wall Unavailable [phone] Allergies No Known Allergies Reason For Referral No Information Medications Medication SIG (Take, Route, Frequency, Duration) Notes Start Date End Date Status hydrOXYzine HCl 10 MG Oral for 6 Days Not-Taking Cyclobenzaprine HCl 5 MG TAKE 1 TABLET B Y MOUTH THREE TIMES DAILY NEEDED FOR MUSCLE SPASM Oral for 10 Days Not-Taking Multivitamin Not-Ramón ing Tremfya Active [place] 10-325 MG Orally PRN Not -Taking Piroxicam 20 MG TAKE 1 CAPSULE BY [facility] EVERY DAY WITH FOOD for 30 [...] Status Risk Notes Problem Plantar fascial fibromatosis (39802538) Plantar fascial fibromatosis (M72.2) Active confirmed Vital Signs Height 6FT in 03/10/2024 Weight 200 lbs 03/10/2024 BMI 27.12 kg/m2 03/10/2024 Procedures Procedure Date Ordered Date Performed Result Body Sit e 48561,A8052-BRV TENDON SHEATH/LIGAMENT 11/01/2023 N/A Encounters Encounter Location Date Provider Diagnosis [facility] [address] 11/01/2023 Rudy Wall Plantar fascial fibromatosis M72.2 ; Pain of left heel M79.672 and Pain of right heel M79.671 [facility] [address] 03/10/2024 Raquel Tapia Plantar fascial fibromatosis M72.2 ; Pain of left heel M79.672 and Pain of right heel M79.671 [facility] [address] 03/26/2024 Raquel Tapia [address] [address] 09/05/2024 Raquel Tapia [address] [address] 11/01/2023 Raquel Tapia [address] [address] 03/10/2024 Raquel Tapia Assessments Encounter Date Diagnosis [...] X ray : Foot, right 3V 06/13/2022 10080,W3160-GDT TENDON SHEATH/LIGAMENT 0 11/01/2023 Next Appt Details Provider Name:Raquel Marquez Alyssia marquez, 09/18/2024 02:45:00 PM, [address] [place], [address], Provider Name:Raquel Marquez Alyssia marquez, 10/01/2024 08:30:00 AM, [address] [place], [address], Provider Name:Raquel Marquez Alyssia marquez, 10/06/2024 01:45:00 PM, [address] [place] [address], [address], Provider Name:Raquel Marquez Alyssia marquez, 10/13/2024 01:45:00 PM, [address] [place] [address], [address], Provider Name:Raquel Marquez Alyssia marquez, 10/27/2024 01:45:00 PM, [address] [place] [address], [address], Insurance Providers Payer Name Payer Address Payer Phone Subscriber Number Group Number Insured Name Patient Relationship to Insured Coverage Start Date Coverage End Date [facility] All Others [address] [place] [address] [id number] Michael Spears Self - patient is the insured Medical (General) History Medical History History ICD Code Back,Hip,and Knee pain Headaches/Migraines Psoriasis Chicken pox Anxiety Arthritis Depression Lyme disease Neuropathy Psoriasis/eczema Sciatica Surgical History Surgery Date(Month/Year) skull 08/23/1993 back fusion 2001 Back Surgery 2000,04/11,12/11 carpal tunnel surgery 12/2023
--- OUTSIDE RECORDS SUMMARY | 2024-09-06 07:57 | XMS_ITS ---
Author Organization [facility] Address [address] [place] [address] Care Team Providers Care Tanbark Peeler Name Role Phone AriannaAyushDavid Primary Care Provider Raquel Tapia [phone] REASON FOR VISIT FMLA Encounters Encounter Location Date Provider Diagnosis [facility] [address] [place] [address] 09/05/2024 Raquel Tapia Plan Of Treatment Next Appt Details Provider Name:Raquel marquez, 09/18/2024 02:45:00 PM, [address] [place] [address], [address], Provider Name:Raquel marquez, 10/01/2024 08:30:00 AM, [address] [place], [address], Provider Name:Raquel marquez, 10/06/2024 01:45:00 PM, [address] [place] [address], [address], Provider Name:Raquel marquez, 10/13/2024 01:45:00 PM, [address] [place] [address], [address], Provider Name:Raquel marquez, 10/27/2024 01:45:00 PM, [address] [place] [address], [address], Progress Notes * Kiera STACKy LDOB:[birth year] (49 yo M)Acc No.[id number]:09/05/2024 Patient:?Michael STACK :1975???Age:49 Y???Sex:Male Address:[address] [place] [address], [place] [address] * * Date:?
[2024-09-06 08:07] LABS: MANUAL DIFF FLAG NO
[2024-09-06 08:37] LABS: Basophils Percent Auto 0.7 % (0-2); Eosinophils Absolute Auto 0.3 X10*3/uL (0.0-0.4); Eosinophils Percent Auto 5.2 % (0-4); Hematocrit 38.9 % (42.0-52.0); Hemoglobin 13.5 g/dl (14.0-18.0); Imm Gran Abs Auto 0.01 X10*3/uL (0.00-0.03); Imm Gran Pct Auto 0.2 % (0.0-0.4); Mean Corpuscular HGB Conc 34.7 g/dl (31.0-36.0); Mean Corpuscular Hemoglobin 29.3 pg (27.0-33.0); Mean Corpuscular Volume 84.6 fL (80.0-98.0); Mean Platelet Volume 10.9 fL (9.4-12.4); Monocytes Absolute Auto 0.6 X10*3/uL (0.1-1.2); Monocytes Percent Auto 9.9 % (2-11); Platelet Count 208 X10*3/uL (160-400); Red Cell Distribution Width 13.3 % (11.0-16.0); White Blood Count 5.9 X10*3/uL (4.8-10.8)
[2024-09-06 08:44] LABS: Estimated Average Glucose 111 mg/dL; Hemoglobin A1C 127.4275 umol/L; Hemoglobin A1c % 5.5 % (<6.0); Total Hemoglobin (HGBA1C) 3524.9513 umol/L
[2024-09-06 09:11] LABS: Alanine Aminotransferase 51 U/L (0-40); Alkaline Phosphatase 93 U/L (39-117); Anion Gap 10 (12-20); Aspartate Amino Transferase 50 U/L (5-37); Bilirubin Total 0.7 mg/dL (0.0-1.0); Blood Urea Nitrogen 15 mg/dL (9-16); Calcium 8.7 mg/dL (8.4-10.2); Carbon Dioxide 25 mmol/L (22-29); Chloride 108 mmol/L (96-108); Cholesterol 226 mg/dL (<200); Estimated Glomerular Filt Rate > 60; Glucose Random 100 mg/dL (60-115); HDL Cholesterol 41 mg/dL (>40); LDL Cholesterol Calculated 166 mg/dL (<100); Magnesium 1.6 mg/dL (1.6-2.6); Sodium 139 mmol/L (135-145); Total Protein 6.6 g/dL (6.5-8.0); Triglycerides 95 mg/dL (<150)
[2024-09-06 09:23] LABS: PSA,Total (Free>4and<10) 0.33 ng/mL (0.00-4.00)
[2024-09-06 09:33] LABS: TSH reflex Free T4 5.92 uIU/mL (0.32-4.0); Vitamin D 25-OH Total 35.1 ng/mL (>30)
[2024-09-06 09:38] LABS: Folate 13.7 ng/mL (> or = 4.0); Vitamin B12 608 pg/mL (200-900)
== END 2024-09-06 07:56 | disposition home or self-care (01) ==
LOC: HO.LAB 07:55
PROVIDERS: PCP Internal Medicine; Visit Provider Physician Assistant Medical
DX: Z00.00 Encounter for general adult medical examination without abnormal findings (principal); Z12.5 Encounter for screening for malignant neoplasm of prostate; Z13.1 Encounter for screening for diabetes mellitus; Z13.0 Encounter for screening for diseases of the blood and blood-forming organs and certain disorders involving the immune mechanism; Z13.220 Encounter for screening for lipoid disorders; Z13.29 Encounter for screening for other suspected endocrine disorder
CPT/HCPCS: 36415; 80053; 80061; 82306; 82607; 82746; 83036; 83735; 84153; 84439; 84443; 85025

== ENCOUNTER 2024-10-08 08:50 | Outpatient (REF) | payer BC, SELFPAY ==
--- NOTE | ~2024-10-08 | US_ITS ---
EXAMINATION: US ABDOMEN COMPLETE CLINICAL INFORMATION: Elevated liver enzymes/transaminases. COMPARISON: None available. TECHNIQUE: Real-time ultrasound of the abdomen using grayscale technique. FINDINGS: PANCREAS: No peripancreatic fluid collections. ABDOMINAL AORTA: The proximal, mid, and distal segments are normal in caliber. INFERIOR VENA CAVA: Visualized portions are normal. LIVER: Liver measures 16 cm by the technologist. Normal echotexture. No nodular surface. No solid or cystic lesions detected by the technologist. No intrahepatic biliary ductal dilatation. GALLBLADDER: There is a 5 mm hyperechoic round intraluminal abnormality at past to the gallbladder wall without flow on color Doppler interrogation. No pericholecystic fluid collection or gallbladder wall thickening. COMMON BILE DUCT: 4 mm. RIGHT KIDNEY: 11 cm. Normal echotexture. Normal renal cortical thickness. No hydronephrosis. No gross solid or cystic lesion detected. . LEFT KIDNEY: 12 cm. Normal echotexture. Normal renal cortical thickness. No hydronephrosis. No solid or cystic lesion detected. SPLEEN: 11 cm. No focal lesion.. FREE FLUID: None. US/US abdomen complete IMPRESSION: Hepatomegaly, mild. 5 mm intraluminal hyperechoic abnormality, gallbladder. Cholelithiasis versus polyp. No hydronephrosis in either kidney. No ascites. Electronically signed by: Jason Baxter MD 10/08/2024 09:26 AM EDT
--- OUTSIDE RECORDS SUMMARY | 2024-10-08 09:21 | XMS_ITS | Clinical Summary ---
Author Organization [facility] Address [address] [place] [address] Care Team Providers Care Glaze Maker Name Role Phone Derrick Vinson MD Primary Care Provider Social History Tobacco Use Types Packs/Day Years [...] age to complete this topic Care Teams Glaze Maker Relationship Specialty Start Date End Date Derrick Vinson MD [address] [place] [address] PCP - General Family Medicine 04/01/20
== END 2024-10-08 08:51 | disposition home or self-care (01) ==
LOC: HO.US 08:50
PROVIDERS: PCP Internal Medicine; Visit Provider Physician Assistant Medical
DX: R74.01 Elevation of levels of liver transaminase levels (principal)
CPT/HCPCS: 76700

== ENCOUNTER → 2024-10-08 08:51 | Outpatient (BNV) | payer BC, SELFPAY | PROVIDERS: PCP Internal Medicine; Visit Provider Radiology Diagnostic Radiology | DX: K82.8 Other specified diseases of gallbladder (principal); R74.01 Elevation of levels of liver transaminase levels | CPT/HCPCS: 76700 ==

== ENCOUNTER 2024-10-20 12:38 | Outpatient (AMB) | payer BC, SELFPAY ==
--- OUTSIDE RECORDS SUMMARY | 2024-10-13 09:45 | XMS_ITS ---
Author Organization [facility] Address [address] [place] [address] Care Team Providers Care Roofing Sales Representative Name Role Phone David Keller Primary Care Provider [phone] Raquel Hansen [phone] REASON FOR VISIT CX PER DR HANSEN Encounters Encounter Location Date Provider Diagnosis [address] [address] 10/13/2024 Raquel Hansen Plan Of Treatment Next Appt Details Provider Name:Raquel marquez, 10/27/2024 01:45:00 PM, [address] [place] [address], [address], Progress Notes * Michael STACK LDOB:[birth year] (49 yo M)Acc No.[id number]:10/13/2024 PROGRESS NOTES Patient: Michael BABIN Provider: Kera Hansen DPM :1975 A ge:49 Y S ex:Male Date:10/13/2024 Address:[address] [place], [place] [phone] Pcp:David Keller Subjective: * Chief Complaints: * [...] Pending * Provider: Kera Hansen DPM Date: 10/13/2024 Generated for Melanie Oshea on: 10/20/2024 01:04 PM EDT
--- NOTE | 2024-10-20 12:39 | MHC.OFFVIS ---
Vital Signs 10/20/24 12:42 Height 6 ft Weight 215 lb BMI 29.2 Handedness Right Intake Visit Reasons: PreOp: right CTR 10/30/24 AR Intake Note: Michael is a 49 year old right hand dominant male who presents today for a pre operative visit to discuss his right carpal tunnel release scheduled on 10/30/[address] Sonia Caballero. Allergies Otezla Adverse Reaction (Severe, Uncoded 10/20/24 12:42) itching HPI HPI PreOp: right CTR 10/30/24 AR: Details: Michael is a 49 year old right hand dominant male who presents today for a pre operative visit to discuss his right carpal tunnel release scheduled on 10/30/[address] Sonia Caballero. Symptoms have remained the same since previous evaluation. [facility] Medical History Elevated ALT measurement Elevated AST (SGOT) Hyperlipidemia LDL goal <100 Anemia Plantar fasciitis, right Subclinical hypothyroidism Pre-op evaluation Encounter to establish care Multiple lipomas Lipoma History of Lyme disease Fractured skull Fracture of T12 vertebra Surgical History Status post excision of lipoma (~01/25/23) History of skin surgery Previous back surgery Family History Mother No problems noted. Father Hypertension Social History Housing: Apartment Alcohol intake: current Alcohol intake frequency: a few times a week Patient Tobacco Use Status: Former Tobacco user Tobacco use type: Cigarette Cigarette Packs Per Day: 0.5 Cigarettes Per Day: 10 e-Cigarette/Vaping Use: Never Used Second Hand Smoke Exposure: Yes service: No Current occupational status: employed Current occupation: [employer]/ rt hand Cognitive needs: Yes Hearing needs: No Vision needs: No Review of Systems Const All systems reviewed & are unremarkable except as noted in HPI and below Physical Exam Vital Signs: BMI result Body Mass Index 29.2 Extrem Other: Neuro: normal sensation to the tips of all digits of bilateral hands No thenar or intrinsic wasting. Good APB muscle firing and good finger cross. Vascular: Capillary refill brisk. ROM: Patient can make a fist and extend all their digits. Skin: Well-approximated incision site noted on the volar aspect of the left wrist No evidence of infection General: No ecchymosis. No erythema or evidence of infection. Assessment & Plan Assessment & Plan (1) Carpal tunnel syndrome of right wrist: Code(s): G56.01 - Carpal tunnel syndrome, right upper limb Category: Medical (2) Carpal tunnel syndrome of left wrist: Code(s): G56.02 - Carpal tunnel syndrome, left upper limb Category: Medical Plan 1. Carpal tunnel syndrome, right Symptoms intermittent, but daily, worse at night. I educated the patient about the condition. I discussed both operative and nonoperative treatment options. The patient would like to proceed with surgery. The risks and benefits of operative treatment were discussed with the patient and the patient wishes to proceed with surgery. These risks include, but are not limited to, risk of damage to blood vessels, nerves, tendons, infection, recurrence, incomplete relief of preoperative symptoms, persistent pain, possible need for further surgery, and the risks associated with regional blocks and/or anesthesia. Plan is to take the patient to the operating room at some point in the next few weeks for the following procedures: Right carpal tunnel release under local anesthesia All of the preoperative paperwork including the consent was discussed today. All of the patient's questions were answered in the clinic today. The patient understands that they will be in contact with our database administration associate to discuss scheduling their procedure. Patient requests to be put on the short notice/add on list Patient denies diabetes, blood thinners, asthma, heart issues, lung issues, kidney issues, or current smoking. Coding Level of Care Code Est Pt Level 4 (44907) Diagnoses Carpal tunnel syndrome of right wrist G56.01 Carpal tunnel syndrome of left wrist G56.02
[2024-10-20 12:42] VITALS: BMI 29.2
--- OUTSIDE RECORDS SUMMARY | 2024-10-20 13:04 | XMS_ITS | Clinical Summary ---
Author Organization [facility] Address [address] [place] [address] Care Team Providers Care Decal Cutter Name Role Phone Derrick Vinson MD Primary Care Provider [phone] Social History Tobacco Use Types Packs/Day Years [...] age to complete this topic Care Teams Decal Cutter Relationship Specialty Start Date End Date Derrick Vinson MD [address] [place] [phone] PCP - General Family Medicine 04/01/20
== END 2024-10-20 13:05 | disposition home or self-care (01) ==
LOC: HO.HOS 12:38
PROVIDERS: PCP Internal Medicine
DX: G56.03 Carpal tunnel syndrome, bilateral upper limbs (principal)
CPT/HCPCS: 99024

== ENCOUNTER 2024-10-30 09:47 | Day surgery (SDC) | payer BC, SELFPAY ==
--- OUTSIDE RECORDS SUMMARY | 2024-09-26 07:59 | XMS_ITS | Clinical Summary ---
Author Organization [facility] Address [address] [place] [address] Care Team Providers Care Cutter Operator Name Role Phone Derrick Vinson MD Primary Care Provider [phone] Social History Tobacco Use Types Packs/Day Years [...] Tdap) 1993 Colon Cancer Screening (Colonoscopy) 2019 Shingrix-Zoster Vaccine (1 of 2) 01/09/2024 Influenza Vaccine (Season Ended) 2024 Pneumococcal Vaccine Aged Out No long er eligible based on patient's age to complete this topic RSV Ped < 20 months Aged Out No longe r eligible based on patient's age to complete this topic Care Teams Cutter Operator Relationship Specialty Start Date End Date Derrick Vinson MD [address] [place] [address] PCP - General Family Medicine 04/01/20
[2024-10-30 09:59] VITALS: BP 119/79; PULSE 74; RESP 16; TEMP 36.6; O2SAT 96
[2024-10-30 10:00] VITALS: BMI 29.2
--- NOTE | 2024-10-30 10:33 | MHC.SHP ---
Pre-Procedural Eval Section A - 24 Hr Update-Section A only Date of Service: 10/30/24 The patient is an INPATIENT: No Changes since office visit: No Cold of Flu in the past 2 weeks, No New Medical Problems, No Changes in Medication and No Patient answered all questions The patient has been examined within 24 hours of the surgical procedure. The History & Physical has been completed within 30 days and I have reviewed it.: Yes Section B - Complete if H&P > 30 days Chief Complaint: Carpal tunnel syndrome, right upper limb Allergies: Allergies Allergy/AdvReac Type Severity Reaction Status Date / Time Otezla AdvReac Severe itching Uncoded 10/20/24 12:42 Plan Diagnosis/Plan: Unchanged I have reviewed the history and physical and performed a pertinent physical examination on my patient. No changes have occurred unless specified. Time Spent With Patient Time: Total time managing care of this patient today ____ minutes.
--- NOTE | 2024-10-30 10:34 | P.OP_ITS ---
Operative Note Operative Note Date of Service: 10/30/24 Narrative: Preop diagnosis: 1. Right Carpal tunnel syndrome Postop diagnosis: same Procedure: 1. Right Carpal tunnel release Surgeon: Sonia Caballero MD Hadoop Application Developer: Narciso PENNY Anesthesia: local block using 1% lidocaine with epinephrine Findings: Thickened transverse carpal ligament. EBL: Less than 5 mL Specimens: None Complications: None Disposition: Brought to recovery room in stable condition Plan: Follow-up for 10-14 days for wound check and suture removal Indications: The patient is 49 years old, with right carpal tunnel syndrome that has been unresponsive to nonoperative management. The risks and benefits of operative treatment including but not limited to risk of damage to blood vessels, nerves, tendons, infection, persistent pain, persistent symptoms, or possible need for additional surgery were discussed with the patient and the patient wishes to proceed with surgery. Procedure: Once consent was obtained a local block was performed using a combination of 1% lidocaine with epinephrine. The patient was then brought back to the operating suite and placed on the operative table in supine position. The right upper extremity was prepped and draped in a standard surgical fashion. Once assured that we had a good block, a 2.0 cm longitudinal incision was made centered over the carpal tunnel. The incision was made through the skin to the subcutaneous tissues using a #15 blade. Dissection was made down to the level of the transverse carpal ligament with care being taken to protect the palmar cutaneous nerve. Once the transverse carpal ligament was clearly visualized, a longitudinal incision was made in the transverse carpal ligament 1st using a #15 blade, then using tenotomy scissors under direct visualization. Care was taken to look for and protect the motor branch of the median nerve when seen in this area. Once satisfied with our carpal tunnel release the wound was copiously irrigated with normal saline and hemostasis was obtained with a brief period of local pressure. The skin edges were reapproximated with some 5.0 nylon suture material and a sterile dressing was applied. The patient appears to have tolerated the procedure well and with no complications. All digits were well vascularized at the conclusion of the case.
[2024-10-30 12:10] VITALS: BP 115/70; PULSE 55; RESP 16; O2SAT 99
== END 2024-10-30 12:11 | disposition home or self-care (01) ==
PROVIDERS: PCP Internal Medicine; Visit Provider Orthopaedic Surgery
PROC: (CPT 64721; principal; 2024-10-30 11:00)
DX: G56.01 Carpal tunnel syndrome, right upper limb (principal); D64.9 Anemia, unspecified; M72.2 Plantar fascial fibromatosis; E78.5 Hyperlipidemia, unspecified; E03.8 Other specified hypothyroidism; R74.01 Elevation of levels of liver transaminase levels; Z86.19 Personal history of other infectious and parasitic diseases; Z87.81 Personal history of (healed) traumatic fracture; Z88.8 Allergy status to other drugs, medicaments and biological substances; Z98.890 Other specified postprocedural states; Z87.891 Personal history of nicotine dependence
CPT/HCPCS: 64721; J0165; J2003

== ENCOUNTER → 2024-10-30 09:47 | Outpatient (BNV) | payer BC, SELFPAY | PROVIDERS: PCP Internal Medicine; Visit Provider Orthopaedic Surgery | DX: G56.01 Carpal tunnel syndrome, right upper limb (principal) | CPT/HCPCS: 64721 ==

== ENCOUNTER 2024-11-12 09:52 | Outpatient (AMB) | payer BC, SELFPAY ==
--- OUTSIDE RECORDS SUMMARY | 2024-10-13 09:45 | XMS_ITS ---
Author Organization [facility] Address [address] [place] [address] Care Team Providers Care Change Control Coordinator Name Role Phone David Keller Primary Care Provider Raquel Hansen [phone] REASON FOR VISIT CX PER DR HANSEN Encounters Encounter Location Date Provider Diagnosis [address] [address] 10/13/2024 Raquel Hansen Plan Of Treatment Next Appt Details Provider Name:Raquel marquez, 12/17/2024 02:45:00 PM, [address] [place], [address], Progress Notes * Michael STACK LDOB:[birth year] (49 yo M)Acc No.[id number]:10/13/2024 PROGRESS NOTES Patient: Kiera BABINy Kera Provider: Kera Hansen DPM :1975 A ge:49 Y S ex:Male Date:10/13/2024 Address:[address] [place], [place] [phone] Pcp:David Keller Subjective: * Chief Complaints: * [...] 0 10/13/2024 Generated for Melanie wasserman/Moreno/[place] on: 0 11/12/2024 10:34 AM EDT
--- NOTE | 2024-11-12 09:54 | MHC.OFFVIS ---
Vital Signs 11/12/24 09:55 Height 6 ft Weight 215 lb BMI 29.2 Intake Visit Reasons: PO RT CTR 10/30/24 AR Intake Note: Michael is a 49 year old right hand dominant male who presents today for a post operative follow up s/p Right Carpal Tunnel Release 10/30/24. Patient reports he is doing well. Denies numbness, tingling, or finger locking. He is no longer taking pain medications. Sutures out and Steris applied. Hx of LT CTR 12/31/23 Allergies Otezla Adverse Reaction (Severe, Uncoded 11/12/24 09:55) itching HPI HPI PO RT CTR 10/30/24 AR: Details: Michael is a 49 year old right hand dominant male who presents today for a post operative follow up s/p Right Carpal Tunnel Release 10/30/24. Patient reports he is doing well. Denies numbness, tingling, or finger locking. He is no longer taking pain medications. Sutures out and Steris applied. Hx of LT CTR 12/31/23 [facility] Medical History Elevated ALT measurement Elevated AST (SGOT) Hyperlipidemia LDL goal <100 Anemia Plantar fasciitis, right Subclinical hypothyroidism Pre-op evaluation Encounter to establish care Multiple lipomas Lipoma History of Lyme disease Fractured skull Fracture of T12 vertebra Surgical History Status post excision of lipoma (~01/25/23) History of skin surgery Previous back surgery Family History Mother No problems noted. Father Hypertension Social History Housing: Apartment Alcohol intake: current Alcohol intake frequency: a few times a week Patient Tobacco Use Status: Former Tobacco user Tobacco use type: Cigarette Cigarette Packs Per Day: 0.5 Cigarettes Per Day: 10 e-Cigarette/Vaping Use: Never Used Second Hand Smoke Exposure: Yes service: No Current occupational status: employed Current occupation: [employer] comp/ rt hand Cognitive needs: Yes Hearing needs: No Vision needs: No Review of Systems Const All systems reviewed & are unremarkable except as noted in HPI and below Physical Exam Vital Signs: BMI result Body Mass Index 29.2 Extrem Other: Neuro: Normal sensation of the tips of all digits of the right hand in the office today No thenar or intrinsic wasting. Good APB muscle firing and good finger cross. Vascular: Capillary refill brisk. ROM: Patient can make a fist and extend all their digits. Skin: Well approximated and well healing incision site noted on the volar right wrist No lacerations or abrasions noted. General: No ecchymosis. No erythema or evidence of infection. Assessment & Plan Assessment & Plan (1) Carpal tunnel syndrome of right wrist: Code(s): G56.01 - Carpal tunnel syndrome, right upper limb Category: Medical Plan 1. Status post right carpal tunnel release DOS 10/30/2024 Patient appears to be recovering well postoperatively Patient is educated about the typical recovery course At this time, no acute follow-up is indicated, as the patient appears to be recovering quite well Patient is educated on reasons for returning to the office Patient is amenable to this plan Follow-up as needed Coding Level of Care Code Global (26181) Diagnoses Carpal tunnel syndrome of right wrist G56.01
[2024-11-12 09:55] VITALS: BMI 29.2
--- OUTSIDE RECORDS SUMMARY | 2024-11-12 10:34 | XMS_ITS | Clinical Summary ---
Author Organization [facility] Address [address] [place] [address] Care Team Providers Care Surgical Instruments Inspector Name Role Phone Derrick Vinson MD Primary [...] Vaccine (1 of 2) 01/09/2024 Influenza Vaccine (#1) 2024 Pneumococcal Vaccine Aged Out No long er eligible based on patient's age to complete this topic RSV Ped < 20 months Aged Out No longe r eligible based on patient's age to complete this topic Care Teams Surgical Instruments Inspector Relationship Specialty Start Date End Date Derrick Vinson MD [address] [place] [phone] PCP - General Family Medicine 04/01/20
--- OUTSIDE RECORDS SUMMARY | 2024-11-12 10:34 | XMS_ITS | Encounter Summary ---
Author Organization [facility] Address [address] [place] [phone] Phone Care Team Providers Care Legal Administrative Assistant Name Role Phone Derrick Vinson MD Primary Care Provider + Encounter Details Date Type Department Care Team (Late st Contact Info) Description 02/26/2020 Procedure Pass [facility], [address] [address] Social History Tobacco Use Types Packs/Day Years Used Date Smoking Tobacco: Never Assessed Sex and Gender Information Value Date Recorded Sex Assigned at Not on file Legal Sex Male 9:30 PM EDT Gender Identity Not on file Sexual Orientation Not on file documented as of this encounter Plan of Treatment Not on file documented as of this encounter Visit Diagnoses Not on filedocumented in this encounter Care Teams Legal Administrative Assistant Relationship Specialty Start Date End Date Derrick Vinson MD [address] [place] [id number] PCP - General Family Medicine 02/26/20 documented as of this encounter Additional Source Comments The information contained in this document represents components of the legal health record. It is not the complete legal health record.[facility]
== END 2024-11-12 10:19 | disposition home or self-care (01) ==
LOC: HO.HOS 09:52
PROVIDERS: PCP Internal Medicine
DX: G56.01 Carpal tunnel syndrome, right upper limb (principal)
CPT/HCPCS: 99024

== ENCOUNTER 2024-12-08 14:57 | Outpatient (AMB) | payer BC, SELFPAY ==
--- OUTSIDE RECORDS SUMMARY | 2024-10-13 09:45 | XMS_ITS ---
Author Organization [facility] Address [address] [place] [address] Care Team Providers Care Pathology Laboratory Technologist Name Role Phone David Keller Primary Care Provider Raquel Hansen [phone] REASON FOR VISIT CX PER DR HANSEN Encounters Encounter Location Date Provider Diagnosis [address] [address] 10/13/2024 Raquel Hansen Plan Of Treatment Next Appt Details Provider Name:Raquel marquez, 12/17/2024 02:45:00 PM, [address] [place], [address], Progress Notes * Michael STACK LDOB:[birth year] (49 yo M)Acc No.[id number]:10/13/2024 PROGRESS NOTES Patient: Kiera BABINy Kera Provider: Kera Hansen DPM :1975 A ge:49 Y S ex:Male Date:10/13/2024 Address:[address] [place], [place] [address] Pcp:David Keller Subjective: * Chief Complaints: * [...] DPM Date: 0 10/13/2024 Generated for Melanie wasserman/Moreno/[place] on: 12/08/2024 03:37 PM EDT
[2024-12-08 15:04] VITALS: BP 135/87; PULSE 92; O2SAT 97; BMI 29.7
--- NOTE | 2024-12-08 15:04 | A.OFFVIS_ITS ---
Vital Signs 12/08/24 15:04 Height 6 ft Weight 219 lb BMI 29.7 BP 135/87 Blood Pressure Location Rt brachial Position Sitting Pulse 92 Pulse Oximetry (%) 97 Intake Visit Reasons: Colonoscopy Screening Intake Note: New patient in office today for colonoscopy screening. CC: Pt denies having any GI symptoms today. Allergies apremilast (From Otezla) Allergy (Severe, Verified 12/08/24 15:07) Rash HPI HPI Colonoscopy Screening: Details: 49 year old? male with past medical history of hyperlipidemia, subclinical hypothyroidism, TMJ, psoriasis, anxiety, depression is here today for pre colonoscopy screening.? Patient was sent to us by his PCP.? This is his first colonoscopy screening.? Patient denies any gastrointestinal symptoms in the past or at present.? Occasional epigastric pain depending on what he eats. Transaminitis found on labs. Patient admits to be eating fatty and fried food. Denies any personal or family history of gastrointestinal disease, colon polyps, or CRC.? Denies history of difficulty with sedation or anesthesia in the past.? Negative for history of sleep apnea.? Denies any history of cardiac, renal, pulmonary, or hepatic disease.?? No history of infectious? diseases like hepatitis A, B, C, HIV or tuberculosis.? Patient is not on any anticoagulation [facility] Medical History Elevated ALT measurement Elevated AST (SGOT) Hyperlipidemia LDL goal <100 Anemia Plantar fasciitis, right Subclinical hypothyroidism Pre-op evaluation Encounter to establish care Multiple lipomas Lipoma History of Lyme disease Fractured skull Fracture of T12 vertebra Surgical History (Updated 12/08/24 @ 15:09 by AV Meredith) S/P carpal tunnel release Status post excision of lipoma (~01/25/23) History of skin surgery Previous back surgery Family History (Updated 12/08/24 @ 15:06 by AV Meredith) Mother No problems noted. Father Hypertension Maternal Uncle Cancer Social History Housing: Apartment Alcohol intake: current Alcohol intake frequency: a few times a week Patient Tobacco Use Status: Former Tobacco user Tobacco use type: Cigarette Cigarette Packs Per Day: 0.5 Cigarettes Per Day: 10 e-Cigarette/Vaping Use: Never Used Second Hand Smoke Exposure: Yes service: No Current occupational status: employed Current occupation: [employer] comp/ rt hand Cognitive needs: Yes Hearing needs: No Vision needs: No Review of Systems Const Denies weight gain and Denies weight loss ENT Reports no additional complaints, Denies dysphagia and Denies odynophagia Card Reports no additional complaints Resp Reports no additional complaints GI Denies abdominal pain, Denies belching, Denies melena, Denies bloating, Denies change in bowel habits, Denies dysphagia, Denies excessive flatus, Denies dyspepsia, Denies heartburn, Denies diarrhea, Denies loose stools, Denies nausea, Denies odynophagia and Denies vomiting Reports no additional complaints Musc Reports no additional complaints Neuro Reports no additional complaints Psych Reports no additional complaints Endo Reports no additional complaints Physical Exam Vital Signs: Last Vital Signs Pulse 92 12/08/24 15:04 BP 135/87 12/08/24 15:04 Pulse Ox 97 12/08/24 15:04 BMI result Body Mass Index 29.7 Const General: healthy appearing, no acute distress and well developed Nutritional Appearance: well nourished Orientation/consciousness: patient oriented x3 Resp Effort & Inspection: normal respiratory effort, able to speak in complete sentences, no tracheal deviation and symmetric chest movement Auscultation: clear to auscultation bilaterally Cardio Rate: regular rate GI Inspection: Yes normal to inspection and No distended Palpation (GI): Soft to palpation, not firm, nontender and No hepatosplenomegaly present Auscultation: normal bowel sounds General: Yes no CVA tenderness Back/Spine/Pelvis Back: no CVA tenderness Skin General skin exam: elasticity normal, turgor normal and dry skin Neuro General: patient oriented x3 Psych Appearance: grossly normal Mental Status: mental status grossly normal Results Reviewed Results Reviewed: Laboratory Tests 09/06/24 08:05 AST 50 H ALT 51 H Alkaline Phosphatase 93 ABDOMINAL ULTRASOUND IMPRESSION: Hepatomegaly, mild. 5 mm intraluminal hyperechoic abnormality, gallbladder. Cholelithiasis versus polyp. No hydronephrosis in either kidney. No ascites. Assessment & Plan Assessment & Plan (1) Screening for colon cancer: Code(s): Z12.11 - Encounter for screening for malignant neoplasm of colon Category: Medical Plan Patient denies any GI, cardiac or respiratory symptoms.? Denies any issues with anesthesia in the past.? Denies any history of sleep apnea.? No history infectious diseases in the past or present.? Not on any anticoagulation therapy.? No family or personal history of colon cancer or polyps.? Patient denies melena, hematochezia, unintentional weight loss or ribbon like stools.? Discussed at length the pre-procedure,? prep, diet & medications as well as what to expect prior, during and after the procedure.?? Stressed the importance of good bowel prep.? Recommended the use of Vaseline or Calmoseptine OTC & baby wipes with bowel movements to promote comfort.? ?Patient verbalizes understanding and agrees to plan of care.? He was given the opportunity to ask questions and all questions answered.? We will see him after the procedure.? Medications: New polyethylene glycol 3350 (Miralax) As directed by gastroenterology department at [facility] 238 grams PO ONCE 238 grams 0RF Z12.11 - Encounter for screening for malignant neoplasm of colon bisacodyl (Dulcolax (bisacodyl)) take 4 tabs at noon the day before your colonoscopy 20 mg (4 x 5 mg) PO ONCE 4 tabs 0RF constipation 1 day Z12.11 - Encounter for screening for malignant neoplasm of colon Coding Level of Care Code New Pt Level 3 (25579) Diagnoses Screening for colon cancer Z12.11 Time Spent (min) 40 Comment 30 minutes spent with patient and additional 10 minutes spent reviewing his records
--- OUTSIDE RECORDS SUMMARY | 2024-12-08 15:38 | XMS_ITS | Clinical Summary ---
Author Organization [facility] Address [address] [place] [address] Care Team Providers Care Timber Treating Tank Operator Name Role Phone Derrick Vinson MD Primary Care Provider [phone] Social History Tobacco Use Types Packs/Day Years [...] age to complete this topic Care Teams Timber Treating Tank Operator Relationship Specialty Start Date End Date Derrick Vinson MD [address] [place] [phone] PCP - General Family Medicine 04/01/20
--- OUTSIDE RECORDS SUMMARY | 2024-12-08 15:38 | XMS_ITS | Encounter Summary ---
Author Organization [facility] Address [address] [place] [phone] Phone Care Team Providers Care Judicial Assistant Name Role Phone Derrick Vinson MD Primary Care Provider + Encounter Details Date Type Department Care Team (Late st Contact Info) Description 02/26/2020 Procedure Pass [facility], [address] [address] Social History Tobacco Use Types Packs/Day Years [...] on filedocumented in this encounter Care Teams Judicial Assistant Relationship Specialty Start Date End Date Derrick Vinson MD [address] [place] [phone] PCP - General Family Medicine 02/26/20 documented as of this encounter Additional Source Comments The information contained in this document represents components of the legal health record. It is not the complete legal health record.[facility]
== END 2024-12-08 17:00 | disposition home or self-care (01) ==
LOC: HO.HGI 14:58
PROVIDERS: PCP Internal Medicine; Visit Provider Nurse Practitioner Family
DX: Z01.818 Encounter for other preprocedural examination (principal); Z12.11 Encounter for screening for malignant neoplasm of colon
CPT/HCPCS: S0285

== ENCOUNTER 2025-02-02 11:11 | Outpatient (AMB) | payer BC, SELFPAY ==
--- OUTSIDE RECORDS SUMMARY | 2024-10-13 09:45 | XMS_ITS ---
Author Organization [facility] Address [address] [place] [phone] Care Team Providers Care Pricing/Signage Team Member Name Role Phone David Keller Primary Care Provider Raquel Hansen [phone] REASON FOR VISIT CX PER DR HANSEN Encounters Encounter Location Date Provider Diagnosis [address] [address] 10/13/2024 Raquel Hansen Plan Of Treatment Next Appt Details Provider Name:Janis Howe saranya, 02/16/2025 10:15:00 AM, [address] [place], [phone], Progress Notes * Michael STACK LDOB:[birth year] (50 yo M)Acc No.[id number]:10/13/2024 PROGRESS NOTES Patient: Rick BABINdexter Cote Provider: Kera Hansen DPM :1975 A ge:49 Y S ex:Male Date:10/13/2024 Address:[address] [place], [place] [id number] Pcp:David Keller Subjective: * Chief Complaints: * [...] 10/13/2024 Generated for Melanie wasserman/Moreno/[place] on: 1 11:15 AM EDT
--- OUTSIDE RECORDS SUMMARY | 2025-01-29 05:00 | XMS_ITS ---
[facility] Address [address] [place] [address] Care Team Providers Care Wool Carder Name Role Phone Arianna, Kartik Primary Care Provider Raquel Tapia Unavailable [phone] Janis Herr Unavailable [phone] Allergies Allergen (clinical drug ingredient) Drug/Non Drug Allergy documented on EMR Reaction Allergy Type Onset Date Status apremilast Otezla Unknown Drug Allergy Active REASON FOR VISIT Wart(s) Medications Medication SIG (Take, Route, Frequency, Duration) Notes Start Date End Date Status Ibuprofen 600 MG Oral; Duration: 10 Days Not-Taking hydrOXYzine HCl 10 MG Oral; Duration: 6 Days Not-Taking Cyclobenzaprine HCl 5 MG TAKE 1 TABLET B Y MOUTH THREE TIMES DAILY NEEDED FOR MUSCLE SPASM Oral; Duration: 10 Days Not-Taking Physical Therapy . . . 2-3x/week; Duration: 3-4 weeks Not-Taking Piroxicam 20 MG TAKE 1 CAPSULE BY MOUTH EVERY DAY WITH FOOD; Duration: 30 Not-Taking Levothyroxine Sodium 25 MCG TAKE 1 TABLE T BY MOUTH DAILY Oral; Duration: 30 Days Active Multivitamin Active Tremfya Active [place] 10-325 MG Orally PRN Not -Taking Social History Tobacco Use: Social History Observation Description Date Details (start date - stop date) Never Smoker NA - NA Tobacco use other than smoking: Question Answer Notes Are you an other tobacco user? No Tobacco Control (Standard) Question Answer Notes Tobacco use: Nonsmoker Additional Findings: Tobacco non-user Current no nsmoker AUDIT-C (Standard) Question Answer Notes Did you have a drink contain ing alcohol in the past year? Yes How often did you have a dri nk containing alcohol in the past year? Monthly or less (1 point) How many drinks did you have on a typical day when you were drinking in the past year? 1 or 2 drinks (0 point) How often did you have six o r more drinks on one occasion in the past year? Less than monthly (1 point) Points 2 Interpretation Negative Problems Problem Type SNOMED Code ICD Code Onset Dates Problem Status W/U Status Risk Notes Problem Plantar wart (45891248) Plantar wart (B07.0) Active confirmed Vital Signs Height 6ft in 01/29/2025 Weight 200 lbs 01/29/2025 BMI 27.12 kg/m2 01/29/2025 Blood pressure systolic 123 mm Hg 01/30/20 25 Blood pressure diastolic 75 mm Hg 025 Procedures Procedure Date Ordered Date Performed Result Body Sit e 16226-Fwsh Destruction, -14 01/29/2025 N/A Encounters Encounter Location Date Provider Diagnosis [facility] [address] [address] 01/29/2025 Janis Herr Right foot pain M79.671 and Plantar wart B07.0 Assessments Encounter Date Diagnosis (ICD Code) Assessment Notes Treatment Notes Treatment Clinical Notes Section Notes 01/29/2025 Right foot pain (ICD-10 - M79.671) 01/29/2025 Plantar wart (ICD-10 - B07.0) Plan Of Treatment Pending Test Test Name Order Date 41432-Whli Destruction, 05-0601/29/2025 Next Appt Details Follow Up: prn, Reason: Provider Name:Janis Howe saranya, 02/16/2025 10:15:00 AM, [address] [place] [address], [id number], Procedure Notes * Category Sub-Category Detail Notes Wart Treatment Procedure Verruca, as desc ribed in exam, were debrided to pin- point bleeding margins with sterile 15 surgical blade, silver nitrate chemocautery applied, recomm. immune-boosting meds such as zinc, recomm. follow up with topical chemosurgical agents, Pt defers any other forms of tx - 23764 Progress Notes * SREEKANTH, Michael LDOB:[birth year] (50 yo M)Acc No.[id number]:01/29/2025 Progress Notes Patient: Michael BABIN Provider: Iris Herr DPM :1975 A ge:50 Y S ex:Male Date:01/29/2025 Address:[address] [place] [address] Pcp:David Keller Subjective: * Chief Complaints: * W art(s) * HPI: S kin problems: Pt States PCP Visit: D ATE 0 12/02/2024 * ROS: G eneral/Constitutional: Nausea d enies. V omiting d enies. H rosa Thirst d enies. L oss appetite d enies. C hills d enies. F atigue d enies.?Fever d enies. N ight Sweats d enies. U nexplained weight loss d enies. U nexplained weight gain d enies. H EENTM: Dentures d enies. D izziness d enies. G lasses/contacts d enies. R etinopathy d enies. B lurred/double vision d enies. T MJ?denies. D ischarge/drainage d enies. I mplants d enies. S ore throat d enies. D ental implants d enies. H charline of hearing d enies. D ifficulty chewing/swallowing/speaking d enies. N ose bleeds d enies. S ore mouth d enies. ? R espiratory: On Oxygen d enies. P neumonia/pleurisy d enies.?Bronchitis d enies. E mphysema d enies. C oughing d enies. C ough blood?denies. S hortness of breath d enies. W heezing d enies. C ardiovascular: Pacemaker d enies. M [employer] d enies. W PW d enies. C HF d enies. H eart attack d enies. S eptal defect d enies. R apid beat d enies. C hest pain d enies. A trial Fib. d enies. M urmur/Palpitations d enies. G astrointestinal: Hemorrhoids d enies. S tomach/Abdominal pain d enies. D ark blood stool d enies. I rritable bowel d enies. C onstipation d enies. D iarrhea d enies. H ematology: Swelling d enies. C lots d enies. V aricose Veins d enies. B ruising d enies. B leeding problem d enies. G enitourinary: Blood urine d enies. F requent/Painfu/urination/bladder control d enies. K idney stones d enies. I nfection (UTI) d enies. N ephropathy d enies. s ex trans dis (STD) d enies. P rostate d enies. M usculoskeletal: Hammertoes d enies. B unions d enies. B ack Pain d enies. M uscle Cramps/ Resting d enies. M uscle cramps / walking d enies.?Generalized aches and pains d enies. W eakness d enies. I nteg.: Miller d enies. S cars d enies. C orns/calluses?denies. I ngrown nails d enies. P ainful nails d enies. O pen Sores d enies. R ashes d enies. N eurologic: Difficulty sleeping d enies. B rain disorder d enies. N umbness d enies. B alance trouble d enies. C onfusion d enies. F ainting/blackouts d enies. T ingling d enies. T remors d enies. * Medical History: * Surgical History: s kull 08/23/1993back fusion 2001Back Surgery 2000,04/11,12/11carpal tunnel surgery 12/2023, 10/2024Topaz Plantar Fasiiotomy Right 10/01/24 * Hospitalization/Major Diagno stic Procedure: D enies Past Hospitalization * Family History: M other: alive. F ather: alive, diagnosed with Family history of arthritis. M aternal uncle: diagnosed with Unspecified cerebral artery occlusion with cerebral infarction. * Social History: T obacco Use: T obacco use other than smoking A re you an other tobacco user? N o Tobacco Control (Standard) T obacco use: N onsmoker A dditional Findings: Tobacco non-user C urrent nonsmoker D rugs/Alcohol: D rugs H ave you used drugs other than those for medical reasons in the past 12 months? Y es M arijuana? Y es smokes marijuana daily M iscellaneous: C affeine: yes, frequency:, 1-2 cups per day. Children: yes, 2. Exercise: yes, hiking, working on cars, boating. Marital status: . 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 D rug/Alcohol: A DOREEN-C (Standard) D id you have a drink containing alcohol in the past year? Y es H ow often did you have a drink containing alcohol in the past year? M onthly or less (1 point) H ow many drinks did you have on a typical day when you were drinking in the past year? 1 or 2 drinks (0 point) H ow often did you have six or more drinks on one occasion in the past year? L ess than monthly (1 point) P oints 2 I nterpretation N egative * Medications: T akingTremfya Multivitamin Levothyroxine Sodium 25 MCG Tablet TAKE 1 TABLET BY MOUTH DAILY Oral Taking Tremfya Taking Multivitamin Taking Levothyroxine Sodium 25 MCG Tablet TAKE 1 TABLET BY MOUTH DAILY Oral Not-Taking/PRNPhysical Therapy . . . . 2-3x/week Cyclobenzaprine HCl 5 MG Tablet TAKE 1 TABLET BY MOUTH THREE TIMES DAILY NEEDED FOR MUSCLE SPASM Oral hydrOXYzine HCl 10 MG Tablet Oral Ibuprofen 600 MG Tablet Oral Piroxicam 20 MG Capsule TAKE 1 CAPSULE BY MOUTH EVERY DAY WITH FOOD [place] 10-325 MG Tablet Orally PRN Medication List reviewed and reconciled with the patientNot-Taking/PRN Physical Therapy . . . . 2-3x/week Not-Taking/PRN Cyclobenzaprine HCl 5 MG Tablet TAKE 1 TABLET BY MOUTH THREE TIMES DAILY NEEDED FOR MUSCLE SPASM Oral Not-Taking/PRN hydrOXYzine HCl 10 MG Tablet Oral Not- Taking/PRN Ibuprofen 600 MG Tablet Oral Not-Taking/PRN Piroxicam 20 MG Capsule TAKE 1 CAPSULE BY MOUTH EVERY DAY WITH FOOD Not-Taking/PRN [place] 10-325 MG Tablet Orally PRN Medication List reviewed and reconciled with the patient * Allergies: O tezla: Allergyyes[Allergies Verified] Objective: * Vitals: H t: 6ft, Wt:200, BMI:27.12, Shoe size: 12.5-13, BP:123/75mm Hg, Ht-cm: 182.88 cm, Wt-k.72 kg. * Examination: D ermatologic: VERRUCA: R eveals a Single , multi-loculated , mosaic-patterned, round, raised, flat- topped, petechial bleeding papule(s), with cauliflower appearance and interruption of skin lines, pain to lateral compression, and size estimated at 5 mm diameter, plantar midfoot RIGHT. Assessment: * Assessment: 1. R ight foot pain - M79.671 2 . P lantar wart - B07.0 (Primary) ? Plan: * Treatment: * Procedures: W art Treatment: Procedure V erruca, as described in exam, were debrided to pin-point bleeding margins with sterile 15 surgical blade, silver nitrate chemocautery applied, recomm. immune-boosting meds such as zinc, recomm. follow up with topical chemosurgical agents, Pt defers any other forms of tx - 23680. * Procedure Codes: 1 7110 Wart Destruction, 1-14, Modifiers: XS * Follow Up: p rn * Images: * Sign off status: Completed true * Provider: Iris Herr DPM Date: Generated for Melanie wasserman/Moreno/eTransmitting on: 11:15 AM EDT History and Physical Notes * HPI (History of Present Illness) Category Sub-Category Detail Notes Category Not es Skin problems Pt States PCP Visit: DATE: 12/02/2024 Examination Category Sub-Category Detail Notes Category Not es Dermatologic VERRUCA: Reveals a Single , multi-loculated , mosaic-patterned, round, raised, flat-topped, petechial bleeding papule(s), with cauliflower appearance and interruption of skin lines, pain to lateral compression, and size estimated at 5 mm diameter, plantar midfoot RIGHT
--- OUTSIDE RECORDS SUMMARY | 2025-02-02 11:15 | XMS_ITS | Clinical Summary ---
Author Organization [facility] Address [address] [place] [address] Care Team Providers Care Field Ring Assembler Name Role Phone Derrick Vinson MD Primary Care Provider [phone] Social History Tobacco Use Types Packs/Day Years [...] age to complete this topic Care Teams Field Ring Assembler Relationship Specialty Start Date End Date Derrick Vinson MD [address] [place] [address] PCP - General Family Medicine 04/01/20
--- OUTSIDE RECORDS SUMMARY | 2025-02-02 11:16 | XMS_ITS | Encounter Summary ---
Author Organization [facility] Address [address] [place] [address] Phone Care Team Providers Care Doorshaker Name Role Phone Derrick Vinson MD Primary Care Provider + Encounter Details Date Type Department Care Team (Late st Contact Info) Description 03/04/2020 Ancillary Orders [facility],Outside Imaging [address] [place] [address] System, Provider Not In, [place] [address] Social History Tobacco Use Types Packs/Day Years Used Date Smoking Tobacco: Never Assessed Sex and Gender Information Value Date Recorded Sex Assigned at Not on file Legal Sex Male 9:30 PM EDT Gender Identity Not on file Sexual Orientation Not on file documented as of this encounter Plan of Treatment Not on file documented as of this encounter Results * MRI Spine (Bone) Outside (No Interpretation) (07/29/2014 12:00 AM EDT) Narrative SYSTEMGENERATED, DOCUMENTATION - 03/04/2020 10:29 AM EST This study is for PACS storage only and not for interpretation. us Provider Not In System PhD IMG OUTSIDE IMAGING W /OUT INTERPRETATION Final Result documented in this encounter Visit Diagnoses Not on filedocumented in this encounter Care Teams Doorshaker Relationship Specialty Start Date End Date Derrick Vinson MD [address] [place] [address] PCP - General Family Medicine 02/26/20 documented as of this encounter Additional Source Comments The information contained in this document represents components of the legal health record. It is not the complete legal health record.[facility]
--- OUTSIDE RECORDS SUMMARY | 2025-02-02 11:16 | XMS_ITS | Encounter Summary ---
Author Organization [facility] Address [address] [place] [address] Phone Care Team Providers Care Professor Of Management Name Role Phone Derrick Vinson MD Primary Care Provider + Encounter Details Date Type Department Care Team (Late st Contact Info) Description 02/26/2020 Procedure Pass [facility], [address] [address] Social History Tobacco Use Types Packs/Day Years [...] on filedocumented in this encounter Care Teams Professor Of Management Relationship Specialty Start Date End Date Derrick Vinson MD [address] [place] [id number] PCP - General Family Medicine 02/26/20 documented as of this encounter Additional Source Comments The information contained in this document represents components of the legal health record. It is not the complete legal health record.[facility]
--- OUTSIDE RECORDS SUMMARY | 2025-02-02 11:16 | XMS_ITS | Encounter Summary ---
Author Organization [facility] Address [address] [place] [address] Phone Care Team Providers Care Registered Vascular Technologist (Rvt) Name Role Phone Derrick Vinson MD Primary Care Provider + Reason for Referral * MRI/CAT Scan - Closed Specialty Diagnoses / Procedures Referred By Tutu gallardo Referred To Contact Radiology Diagnoses Lumbar radiculopathy Procedures MRI Lumbar Spine Joshua Rodríguez DO Phone: tel: fax: [email or web address] Referral ID Status Reason Start Date Expiration Date Visits Re quested Visits Authorized [id number] Closed 02/26/2020 08/24/2020 1 1 Encounter Details Date Type Department Care Team (Latest Contact Info) Description 02/26/2020 Transcribe Orders Virtual Department [address] [place] [address] Joshua Rodríguez DO [address] [place] [address] [email or web address] Lumbar radiculopathy (Primary Dx) Social History Tobacco Use Types Packs/Day Years Used Date Smoking Tobacco: Never Assessed Sex and Gender Information Value Date Recorded Sex Assigned at Not on file Legal Sex Male 9:30 PM EDT Gender Identity Not on file Sexual Orientation Not on file documented as of this encounter Plan of Treatment Not on file documented as of this encounter Results * MRI LUMBAR SPINE (NEURO) WITHOUT CONTRAST (03/09/2020 1:48 PM EST) Anatomical Region Laterality Modality L-spine Magnetic Resonan ce 03/09/2020 2:07 PM EST Impressions 03/09/2020 2:24 PM EST Chronic left paramedian L4-5 disc protrusion slightly changed in orientation but apparently decreased no overt all dimensions since 07/29/2014, although on that contrast-enhanced study a component was suggested to be related to enhancing granulation material. This could still represent a source of left L5 radiculopathy which could be correlated with clinical findings. Minimal marrow edema underlying the posterior superior corner of the chronically compressed T12 vertebral body, but without progressive compression or canal stenosis apparent. No other significant interval changes are identified. POS - [id number] Narrative 03/09/2020 2:24 PM EST TECHNIQUE: Exam performed on a 1.5 Ava high-field MRI scanner. Sagittal T1, T2 and STIR, axial T1 and T2 sequences were obtained. FINDINGS: Comparisons made with an outside contrast-enhanced lumbar MR dated 07/29/2014. T11-12: There is a chronic and grossly stable upper endplate compression deformity of T12 without discrete disc protrusion or central canal stenosis. There is a focus of marrow edema along the posterior superior corner of T12 now apparent. Neural foramina are patent. T12-L1: Chronic disc space narrowing and disc desiccation without acute disc protrusion, central canal stenosis, or neural foraminal compromise. L1-2: No focal disc protrusion, central canal stenosis, or neural foraminal compromise demonstrated on the sagittal sequences. Axial imaging not performed at this level. L2-L3: Stable minimal broad-based disc bulge without acute disc protrusion, central canal stenosis, or neural foraminal compromise. L3-L4: No focal disc protrusion, central canal stenosis, or neural foraminal compromise. L4-L5: There is chronic disc desiccation and a broad-based hypointense disc protrusion eccentric to the left leading to persistent deformity of the anterior margin of the thecal sac and impingement upon the L5 nerve root in the lateral recess. This appears somewhat changed in orientation but overall smaller than on the prior study where a component appear to be related to enhancing granulation material. The neural foramina themselves appear widely patent. A minimal chronic grade 1 retrolisthesis of L4 relation to L5 is unchanged. L5-S1: No focal disc protrusion, central canal stenosis, or significant neural foraminal compromise. Other than for the T12 level no new zone of vertebral body marrow edema is noted. No acute compression deformity. Visualized portions of the tip of the conus are unremarkable. No paraspinal soft tissue mass apparent. Procedure Note Newton Warren MD - 03/09/2020 TECHNIQUE: Exam performed on a 1.5 Ava high-field MRI scanner. SagittalT1, T2 and STIR, axial T1 and T2 sequences were obtained. FINDINGS: Comparisons made with an outside contrast-enhanced lumbar MR date07/29/2014. T11-12: There is a chronic and grossly stable upper endplate compressiondeformity of T12 without discrete disc protrusion or central canalstenosis. There is a focus of marrow edema along the posterior superiorcorner of T12 now apparent. Neural foramina are patent. T12-L1: Chronic disc space narrowing and disc desiccation without acutedisc protrusion, central canal stenosis, or neural foraminal compromise. L1-2: No focal disc protrusion, central canal stenosis, or neuralforaminal compromise demonstrated on the sagittal sequences. Axial imagingnot performed at this level. L2-L3: Stable minimal broad-based disc bulge without acute discprotrusion, central canal stenosis, or neural foraminal compromise. L3-L4: No focal disc protrusion, central canal stenosis, or neuralforaminal compromise. L4-L5: There is chronic disc desiccation and a broad-based hypointensedisc protrusion eccentric to the left leading to persistent deformity ofthe anterior margin of the thecal sac and impingement upon the L5 nerveroot in the lateral recess. This appears somewhat changed in orientationbut overall smaller than on the prior study where a component appear to berelated to enhancing granulation material. The neural foramina themselvesappear widely patent. A minimal chronic grade 1 retrolisthesis of [id number] to L5 is unchanged. L5-S1: No focal disc protrusion, central canal stenosis, or significantneural foraminal compromise. Other than for the T12 level no new zone of vertebral body marrow edema isnoted. No acute compression deformity. Visualized portions of the tip ofthe conus are unremarkable. No paraspinal soft tissue mass apparent. IMPRESSION: Chronic left paramedian L4-5 disc protrusion slightly changed inorientation but apparently decreased no overt all dimensions since07/29/2014, although on that contrast-enhanced study a component wassuggested to be related to enhancing granulation material. This couldstill represent a source of left L5 radiculopathy which could becorrelated with clinical findings. Minimal marrow edema underlying the posterior superior corner of thechronically compressed T12 vertebral body, but without progressivecompression or canal stenosis apparent. No other significant intervalchanges are identified. POS - [id number] Joshua Rodríguez DO IMG MR XSPECIALTY Final Resu lt documented in this encounter Visit Diagnoses Diagnosis Lumbar radiculopathy- Primary Thoracic or lumbosacral neuritis or radiculitis, unspecified Lumbar radiculopathy Thoracic or lumbosacral neuritis or radiculitis, unspecified documented in this encounter Care Teams Registered Vascular Technologist (Rvt) Relationship Specialty Start Date End Date Derrick Vinson MD [address] [place] [address] PCP - General Family Medicine 02/26/20 documented as of this encounter Additional Source Comments The information contained in this document represents components of the legal health record. It is not the complete legal health record.[facility]
--- OUTSIDE RECORDS SUMMARY | 2025-02-02 11:16 | XMS_ITS | Clinical Summary ---
Author Organization [facility] Address [address] [address] Phone Care Team Providers Care Stonemason Name Role Phone Derrick Vinson MD Primary Care Provider + Social History Tobacco Use Types Packs/Day Years Used Date Smoking Tobacco: Never Assessed Education Answer Date Recorded Are you interested in more education? Not on walker e 08/18/2022 Are you concerned about learning? Not on file 08/18/2022 No 08/18/2022 No 08/18/2022 Digital Access Answer Date Recorded No 09/18/2022 No 09/18/2022 No 09/18/2022 Reliable internet access at home? Not on file 09/18/2022 Device with a working camera? Not on file Sex and Gender Information Value Date Recorded Sex Assigned at Not on file Legal Sex Male 9:30 PM EDT Gender Identity Not on file Sexual Orientation Not on file Last Filed Vital Signs Vital Sign Reading Time Taken Comments Blood Pressure - - Pulse - - Temperature - - Respiratory Rate - - Oxygen Saturation - - Inhaled Oxygen Concentration - - Weight 90.7 kg (200 lb) 03/03/2020 2:42 PM EST Height 182.9 cm (6') 03/03/2020 2:42 PM EST Body Mass Index 27.12 03/03/2020 2:42 PM EST Plan of Treatment Health Maintenance Due Date Last Done Comments Adult Td,Tdap Booster 1975 LIPID PANEL 1974 DEPRESSION SCREENING 1986 SMOKING Hx and SMOKELESS TOBACCO SCREENING 1987 HEPATITIS C SCREENING 01/09/1992 HIV ONE-TIME SCREENING (18-6 5 YEARS) 01/09/1992 COLOGUARD 2019 COLONOSCOPY 2019 COLORECTAL CANCER SCREENING 2019 FIT TEST 2019 FOBT 2019 SIGMOIDOSCOPY 2019 VIRTUAL COLONOSCOPY 2019 COVID-19 VACCINE (3 - 2023-2 5 season) 2023 05/10/2021, 04/06/2021 PNEUMOCOCCAL VACCINES (50+ years) (1 of 1 - PCV) 01/09/2024 ZOSTER VACCINES (1 of 2) 01/09/2024 HEPATITIS A VACCINES Aged Out No long er eligible based on patient's age to complete this topic HIB VACCINES Aged Out No longer eligi ble based on patient's age to complete this topic MENINGOCOCCAL VACCINES (ACWY) Aged Out No longer eligible based on patient's age to complete this topic MENINGOCOCCAL VACCINES (B) Aged Out N o longer eligible based on patient's age to complete this topic Medical Devices Not on file Insurance [facility] NON NSPG PCP [facility] NON NSPG PCP [facility] NON NSPG PCP [facility] NON NSPG PCP [facility] NON NSPG PCP [facility] NSPG PCP [facility] NON NSPG PCP [facility] Care Teams Stonemason Relationship Specialty Start Date End Date Derrick Vinson MD [address] [place] [address] PCP - General Family Medicine 02/26/20 Additional Source Comments The information contained in this document represents components of the legal health record. It is not the complete legal health record.[facility]
[2025-02-02 11:27] VITALS: BP 132/81; PULSE 67; RESP 16; TEMP 37; O2SAT 98; BMI 29.3
--- NOTE | 2025-02-02 11:27 | A.OFFPC_ITS ---
Vital Signs 02/02/25 11:27 Height 6 ft Weight 216 lb 4 oz BMI 29.3 BP 132/81 Blood Pressure Location Rt brachial Position Sitting Respiration 16 Pulse 67 Pulse Source Pulse Oximeter Temp 98.6 F Temp Source Temporal Artery Scan Pulse Oximetry (%) 98 Oxygen Delivery Method Room Air Intake Visit Reasons: follow up Payment Processor Required: No Accompanied by: Self / Same As Patient Allergies apremilast (From Otezla) Allergy (Severe, Verified 02/02/25 13:13) Rash Medication List - Last Reconciled 02/02/25 by Griselda Chung PA-C amoxicillin-pot clavulanate 875-125 mg 1 tab PO BID 10 days B.coagulans-digestive enzym 10 2 billion cell (Digestive Advantage Probiotics Plus Gas) 1 cap PO DAILY 30 days clotrimazole 1% 1 appl topical BID fexofenadine-pseudoephedrine 60-120 mg ER (Ember-D 12 Hour) 1 tab PO Q12H PRN 30 days fluconazole 150 mg PO Q3D 2 doses guselkumab (Tremfya) 100 mg subcut Q8W levothyroxine 25 mcg PO DAILY multivitamin 1 tab PO DAILY Tobacco use date assessed: 02/02/25 Dental Screening Dental Screen Date: 02/02/25 Did you have a dental visit in the last 12 months?: Yes Did you have a dental problem in the last 6 months where you did not have access to dental care?: No Was dental information given to patient?: Patient has dentist HPI follow up HPI Details The patient is a 50-year-old male presenting with a follow-up for multiple concerns including a right thigh cyst, rash on the scrotum, sinus infection, and hypothyroidism. The patient reports a movable cyst on the right thigh that has been present for a couple of months. He experiences numbness in the right leg, which is suspected to be related to a pinched nerve from previous back surgeries involving the fourth and fifth lumbar vertebrae. The patient also reports a rash on the scrotum, which is itchy and varies in severity. He has tried different soaps without relief, and it is suspected to be a fungal infection. The patient has a history of sinus infections and is currently experiencing symptoms consistent with this condition. He has been advised to take Augmentin and probiotics to manage the infection and prevent gastrointestinal side ef fects. The patient has a history of hypothyroidism, with a previous TSH level of 5.92, indicating suboptimal control. He acknowledges previous non-adherence to medication, which may have contributed to the elevated TSH levels. [facility] Medical History (Updated 02/02/25 @ 13:20 by Griselda Chung PA-C) Hypothyroidism Tinea cruris Skin cyst Elevated ALT measurement Elevated AST (SGOT) Hyperlipidemia LDL goal <100 Anemia Plantar fasciitis, right Subclinical hypothyroidism Pre-op evaluation Encounter to establish care Multiple lipomas Lipoma History of Lyme disease Fractured skull Fracture of T12 vertebra Surgical History S/P carpal tunnel release Status post excision of lipoma (~01/25/23) History of skin surgery Previous back surgery Family History Mother No problems noted. Father Hypertension Maternal Uncle Cancer Social History Housing: Apartment Alcohol intake: current Alcohol intake frequency: a few times a week Patient Tobacco Use Status: Former Tobacco user Tobacco use type: Cigarette Cigarette Packs Per Day: 0.5 Cigarettes Per Day: 10 e-Cigarette/Vaping Use: Never Used Second Hand Smoke Exposure: Yes service: No Current occupational status: employed Current occupation: [employer] 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 1. Little interest or pleasure in doing things: several days 2. Feeling down, depressed, or hopeless: not at all 3. Trouble falling or staying asleep, or sleeping too much: not at all 4. Feeling tired or having little energy: several days 5. Poor appetite or overeating: not at all 6. Feeling bad about yourself - or that you are a failure or have let yourself or your family down: not at all 7. Trouble concentrating on things, such as reading the newspaper or watching television: not at all 8. Moving or speaking so slowly that other people could have noticed. Or the opposite - being so fidgety or restless that you have been moving around a lot more than usual: not at all 9. Thoughts that you would be better off or of hurting yourself in some way: not at all Total score: 2 Depression Screening Interpretation: Negative Depression Screening Done: Yes 68313 - PHQ-9 Billing: Yes Source: Developed by Drs. Erasmo Lobato, Nae Little, Mitesh Frank and colleagues, with an educational len from [employer]. Thrive Questionnaire Date Thrive assessed: 02/02/25 I am a: Patient What is your living situation today?: I have a steady place to live Within the past 12 months, did the food you bought not last and you didn't have the money to get more?: Never true Within the past 12 months, did you worry whether your food would run out before you got money to buy more?: Never true Do you have trouble paying for medicines?: No Do you have trouble getting transportation to medical appointments?: No Do you have trouble paying your heating and electricity bill?: No Do you have trouble taking care of your child, family member or friend?: No Do you have trouble with day-to-day activities such as bathing, preparing meals, shopping, managing finances, etc.?: I choose not to answer this question Are you currently unemployed and looking for a job?: I choose not to answer this question Are you interested in more education?: I choose not to answer this question Please select the resources that you would like help with: None Currently or been in a relationship where the following occur: I choose not to answer THRIVE Score: 0 AUDIT C Alcohol Use Questionnaire (AUDIT-C) 1. How often do you have a drink containing alcohol?: 2-4 times a month 2. How many drinks containing alcohol do you have on a typical day when you are drinking?: 7 to 9 3. How often do you have six or more drinks on one occasion?: Weekly Total Score: 8 Score Reviewed/Action Taken: No CHAD-7 AMB Questionnaire CHAD-7 Date CHAD - 7 assessed: 02/02/25 Feeling nervous, anxious, or on edge: 0 = Not at all Not being able to stop or control worryin = Not at all Worrying too much about different things: 0 = Not at all Trouble relaxin = Several days Being so restless that it is hard to sit still: 0 = Not at all Becoming easily annoyed or irritable: 0 = Not at all Feeling afraid as if something awful might happen: 0 = Not at all Total CHAD-7 score (0-4 normal; 5-9 mild; 10-14 moderate; 15-21 severe): 1 Source: Developed by Drs. Erasmo Lobato, Nae Little, Mitesh Frank and colleagues, with an educational len from [employer]. CHAD-7 Assessment Billing CHAD-7 Assessment Tool: CHAD-7 Assessment 52285 Review of Systems Const Details: - Neurological: Reports numbness in the right leg. Denies numbness in the left leg. - Dermatological: Reports itchy rash on the scrotum. - Endocrine: Reports history of hypothyroidism. - Respiratory: Reports symptoms consistent with sinus infection. All systems reviewed & are unremarkable except as noted in HPI and below Physical exam (Primary Care) Vital Signs: Last Vital Signs Temp 98.6 F 02/02/25 11:27 Pulse 67 02/02/25 11:27 Resp 16 02/02/25 11:27 BP 132/81 02/02/25 11:27 Pulse Ox 98 02/02/25 11:27 Oxygen Delivery Method Room Air 02/02/25 11:27 Care Plan Goal for BP management: <140/90 at Goal BMI result Body Mass Index 29.3 BMI Assessment/Plan discussion: High BMI High, discussed plan: lifestyle, weight reduction, dietary, physical activity, alcohol moderation and other Tobacco/Smoking Status: Tobacco use Status Tobacco use date assessed 02/02/25 02/02/25 11:36 Patient Tobacco Use Status Former Tobacco user 02/02/25 11:36 Tobacco use type Cigarette 02/02/25 11:36 e-Cigarette/Vaping Use Never Used 02/02/25 11:36 PHQ-9: PHQ-9 Score PHQ-9: Total score 2 02/02/25 11:36 Depression Screening Interpretation: Negative Thrive Assessment: Date of Thrive Assessment Date Thrive assessed 02/02/25 02/02/25 11:36 Currently or been in a relationship where the following occur: I choose not to answer Const Other: Appearance: Alert. Oriented X3. No acute distress. Head: Normal external exam. Normocephalic. Atraumatic. Eyes: Pupils are equal, round, and reactive to light. Extraocular movements intact. Conjunctiva and sclera normal. Eyelids normal. Throat: Pharynx normal. Uvula midline. Moist mucous membranes. Neck: Normal inspection. Neck supple. Full range of motion. Cardiovascular: Normal heart rate and rhythm. Respiratory: No respiratory distress. Painless inspiration. Back: Full range of motion noted. Skin: Skin warm and dry. Normal skin color. Normal skin turgor. No rashes/lesions/lacerations noted. Extremities: Extremities exhibit normal range of motion. Mobile cyst to right upper thigh. No fluctuance, erythema or signs of active infection. Coding Level of Care Code Est Pt Level 4 (60053) Complex EM visit Add On G2211 Diagnoses Skin cyst L72.9 Tinea cruris B35.6 Sinusitis, unspecified chronicity, unspecified location J32.9 Sinusitis location: unspecified location Chronicity: unspecified Hypothyroidism E03.9 Additional Codes CHAD-7 Assessment Billing - CHAD-7 Assessment Tool: CHAD-7 Assessment 46623 ([id number]) PHQ-9 - 80926 - PHQ-9 Billing: Yes ([id number]) Assessment & Plan Assessment & Plan (1) Skin cyst: Code(s): L72.9 - Follicular cyst of the skin and subcutaneous tissue, unspecified Category: Medical Plan: The patient has a movable cyst on the right thigh, which has been present for a couple of months. An ultrasound will be performed to assess the size and characteristics of the cyst, and a referral to dermatology is considered for further evaluation. (2) Tinea cruris: Code(s): B35.6 - Tinea cruris Category: Medical Plan: The patient presents with an itchy rash on the scrotum, suspected to be a fungal infection. Treatment includes a topical antifungal cream and Diflucan, with instructions to maintain dryness in the affected area. (3) Sinusitis: Code(s): J32.9 - Chronic sinusitis, unspecified Category: Medical Qualifiers: Sinusitis location: unspecified location Chronicity: unspecified Qualified Code(s): J32.9 - Chronic sinusitis, unspecified Plan: The patient is experiencing symptoms of a sinus infection and will be treated with Augmentin. Probiotics are recommended to prevent gastrointestinal side effects from the antibiotic therapy. (4) Hypothyroidism: Code(s): E03.9 - Hypothyroidism, unspecified Category: Medical Plan: The patient has a history of hypothyroidism with a previously elevated TSH level of 5.92. The patient is advised to have the thyroid function re-evaluated to ensure proper management. Plan Plan Patient was informed and verbally consented to the use of an ambient scribe for clinic note documentation during this visit. 1. Right Thigh Cyst The patient has a movable cyst on the right thigh, which has been present for a couple of months. An ultrasound will be performed to assess the size and characteristics of the cyst, and a referral to dermatology is considered for further evaluation. 2. Rash On Scrotum The patient presents with an itchy rash on the scrotum, suspected to be a fungal infection. Treatment includes a topical antifungal cream and Diflucan, with instructions to maintain dryness in the affected area. 3. Sinus Infection The patient is experiencing symptoms of a sinus infection and will be treated with Augmentin. Probiotics are recommended to prevent gastrointestinal side effects from the antibiotic therapy. 4. Hypothyroidism The patient has a history of hypothyroidism with a previously elevated TSH level of 5.92. The patient is advised to have the thyroid function re-evaluated to ensure proper management. I discussed with the patient the management of his right thigh cyst, including the plan for an ultrasound and potential dermatology referral. We also reviewed the treatment plan for the scrotal rash, emphasizing the use of topical antifungal cream and Diflucan. For the sinus infection, I recommended Augmentin and probiotics to mitigate side effects. We discussed the importance of re- evaluating thyroid function due to previous non-adherence to medication, and I advised the patient to have his thyroid levels checked soon. Orders: Orders US Extremity Nonvas Limited RT Today L72.9 - Follicular cyst of the skin and subcutaneous tissue, unspecified Medications: New amoxicillin-pot clavulanate 875-125 mg 1 tab PO BID 20 tabs 0RF 10 days fexofenadine-pseudoephedrine 60-120 mg ER (Ember-D 12 Hour) 1 tab PO Q12H PRN 60 tabs 3RF allergy symptoms 30 days clotrimazole 1% 1 appl topical BID 56.7 grams 6RF fluconazole may repeat second dose 72 hrs after first dose if symptoms persist 150 mg PO Q3D 2 tabs 2RF 2 doses B.coagulans-digestive enzym 10 2 billion cell (Digestive Advantage Probiotics Plus Gas) 1 cap PO DAILY 30 caps 0RF 30 days Patient Instructions: - Schedule an ultrasound for the right thigh cyst. - Apply the prescribed antifungal cream to the scrotal rash as directed. - Take Diflucan as prescribed, one today and repeat in three days. - Start Augmentin for sinus infection and take probiotics to prevent side effects. - Get thyroid function re-evaluated at your earliest convenience.
== END 2025-02-02 11:54 | disposition home or self-care (01) ==
LOC: HO.HMCSH 11:11
PROVIDERS: PCP Physician Assistant Medical; Visit Provider Physician Assistant Medical
DX: L72.9 Follicular cyst of the skin and subcutaneous tissue, unspecified (principal); B35.6 Tinea cruris; J32.9 Chronic sinusitis, unspecified; E03.9 Hypothyroidism, unspecified

== ENCOUNTER → 2025-02-02 11:11 | Outpatient (BNVA) | payer BC, SELFPAY | PROVIDERS: PCP Physician Assistant Medical; Visit Provider Physician Assistant Medical | DX: L72.9 Follicular cyst of the skin and subcutaneous tissue, unspecified (principal); B35.6 Tinea cruris; J32.9 Chronic sinusitis, unspecified; E03.9 Hypothyroidism, unspecified; Z13.31 Encounter for screening for depression; Z13.39 Encounter for screening examination for other mental health and behavioral disorders | CPT/HCPCS: 96127 ==

== ENCOUNTER 2025-02-05 15:41 | Outpatient (REF) | payer BC, SELFPAY ==
--- OUTSIDE RECORDS SUMMARY | 2024-10-01 06:45 | XMS_ITS ---
Author Organization [facility] Address [address] [place] [address] Care Team Providers Care Truck Railroad And Bus Motor Mechanic Name Role Phone David Keller Primary Care Provider Raquel Tapia [phone] Encounters Encounter Location Date Provider Diagnosis Surgery [facility] ([facility]) [address] [place] [address] 10/01/2024 Raquel Tapia Plan Of Treatment Next Appt Details Provider Name:Janis Howe saranya, 02/16/2025 10:15:00 AM, [address] [place], [address], Progress Notes * Michael STACK LDOB:[birth year] (50 yo M)Acc No.[id number]:10/01/2024 Patient: Renetta SIRIKARLAMichael Provider: Kera Tapia DPM :1975 A ge:49 Y S ex:Male Date:10/01/2024 Address:[address] [place] [address] Pcp:David Keller * Images: * The named appointment provid er may or may not be the originator of this progress note, and it is not deemed complete until electronically signed by the appointment provider. Sign off status: Pending * Provider: Kera Tapia DPM Date: 0 10/01/2024 Generated for Melanie wasserman/Moreno/[place] on: 1 07:25 PM EDT
--- OUTSIDE RECORDS SUMMARY | 2024-10-13 09:45 | XMS_ITS ---
Author Organization [facility] Address [address] [place] [address] Care Team Providers Care Jewel Sorter Name Role Phone David Keller Primary Care Provider Raquel Hansen [phone] REASON FOR VISIT CX PER DR HANSEN Encounters Encounter Location Date Provider Diagnosis [address] [address] 10/13/2024 Raquel Hansen Plan Of Treatment Next Appt Details Provider Name:Janis Howe saranya, 02/16/2025 10:15:00 AM, [address] [place], [address], Progress Notes * Michael STACK LDOB:[birth year] (50 yo M)Acc No.[id number]:10/13/2024 PROGRESS NOTES Patient: Rick BABINdexter Cote Provider: Kera Hansen DPM :1975 A ge:49 Y S ex:Male Date:10/13/2024 Address:[address] [place], [place] [phone] Pcp:David Keller Subjective: * Chief Complaints: * [...] 0 10/13/2024 Generated for Melanie wasserman/Moreno/[place] on: 1 07:24 PM EDT
[2025-02-05 18:23] LABS: Free T4 (Free Thyroxine) 0.89 ng/dL (0.71-1.85)
--- OUTSIDE RECORDS SUMMARY | 2025-02-05 19:25 | XMS_ITS | Encounter Summary ---
Author Organization [facility] Address [address] [place] [phone] Phone Care Team Providers Care Director Gift Name Role Phone Derrick Vinson MD Primary Care Provider + Encounter Details Date Type Department Care Team (Late st Contact Info) Description 03/04/2020 Ancillary Orders [facility],Outside Imaging [address] [place] [address] System, Provider Not In, [place] [address] Social History Tobacco Use Types Packs/Day Years [...] on filedocumented in this encounter Care Teams Director Gift Relationship Specialty Start Date End Date Derrick Vinson MD [address] [place] [address] PCP - General Family Medicine 02/26/20 documented as of this encounter Additional Source Comments The information contained in this document represents components of the legal health record. It is not the complete legal health record.[facility]
--- OUTSIDE RECORDS SUMMARY | 2025-02-05 19:25 | XMS_ITS | Encounter Summary ---
Author Organization [facility] Address [address] [place] [address] Phone Care Team Providers Care Glazier Artist Name Role Phone Derrick Vinson MD Primary Care Provider + Encounter Details Date Type Department Care Team (Late st Contact Info) Description 02/26/2020 Procedure Pass [facility], [address] [address] Social History Tobacco Use Types Packs/Day Years [...] on filedocumented in this encounter Care Teams Glazier Artist Relationship Specialty Start Date End Date Derrick Vinson MD [address] [place] [address] PCP - General Family Medicine 02/26/20 documented as of this encounter Additional Source Comments The information contained in this document represents components of the legal health record. It is not the complete legal health record.[facility]
--- OUTSIDE RECORDS SUMMARY | 2025-02-05 19:25 | XMS_ITS | Encounter Summary ---
Author Organization [facility] Address [address] [place] [address] Phone Care Team Providers Care Rigging Slinger Name Role Phone Derrick Vinson MD Primary Care Provider + Reason for Referral * MRI/CAT Scan - Closed Specialty Diagnoses / Procedures Referred By Tutu gallardo Referred To Contact Radiology Diagnoses Lumbar radiculopathy Procedures MRI Lumbar Spine Joshua Rodríguez DO Phone: tel: fax: [email or web address] Referral ID Status Reason Start Date Expiration Date Visits Re quested Visits Authorized [id number] Closed 02/26/2020 08/24/2020 1 1 Encounter Details Date Type Department Care Team (Latest Contact Info) Description 02/26/2020 Transcribe Orders Virtual Department [address] [place] [address] Joshua Rodríguez DO [address] [place] [address] [email or web address] Lumbar radiculopathy (Primary Dx) Social History Tobacco [...] significant interval changes are identified. POS - [id number] Narrative 03/09/2020 2:24 PM EST TECHNIQUE: Exam [...] A minimal chronic grade 1 retrolisthesis of G2impbakey to L5 is unchanged. L5-S1: No focal [...] other significant intervalchanges are identified. POS - [id number] Joshua Rodríguez DO IMG MR XSPECIALTY Final Resu lt documented in this encounter Visit Diagnoses Diagnosis Lumbar radiculopathy- Primary Thoracic or lumbosacral neuritis or radiculitis, unspecified Lumbar radiculopathy Thoracic or lumbosacral neuritis or radiculitis, unspecified documented in this encounter Care Teams Rigging Slinger Relationship Specialty Start Date End Date Derrick Vinson MD [address] [place] [address] PCP - General Family Medicine 02/26/20 documented as of this encounter Additional Source Comments The information contained in this document represents components of the legal health record. It is not the complete legal health record.[facility]
--- OUTSIDE RECORDS SUMMARY | 2025-02-05 19:25 | XMS_ITS | Clinical Summary ---
Author Organization [facility] Address [address] [address] Phone Care Team Providers Care Line Manager Name Role Phone Derrick Vinson MD Primary [...] FOBT 2019 SIGMOIDOSCOPY 2019 VIRTUAL COLONOSCOPY 2019 PNEUMOCOCCAL VACCINES (50+ years) (1 of 1 - PCV) 01/09/2024 ZOSTER VACCINES (1 of 2) 01/09/2024 INFLUENZA VACCINE (#1) 2024 COVID-19 VACCINE (3 - 2024-2 6 season) 2024 05/10/2021, 04/06/2021 RSV VACCINE (1 - 1-dose 75+ series) 2049 HEPATITIS A VACCINES Aged Out No long [...] topic Medical Devices Not on file Insurance [facility] NON NSPG PCP [place] [employer] [facility] NON NSPG PCP [place] [employer] [facility] NON NSPG PCP S[place] [employer] [facility] NON NSPG PCP [place] [employer] [facility] NON NSPG PCP [place] [facility] NON NSPG PCP [place] [employer] NON NSPG PCP [place] [employer] [facility] NON NSPG PCP AUGUSTINE KUMAR [facility] Care Teams Line Manager Relationship Specialty Start Date End Date Derrick Vinson MD [address] [place] [address] PCP - General Family Medicine 02/26/20 Additional Source Comments The information contained in this document represents components of the legal health record. It is not the complete legal health record.[facility]
--- OUTSIDE RECORDS SUMMARY | 2025-02-05 19:25 | XMS_ITS | Patient Health Record ---
Author Organization [facility] Address [address] [place] [address] Care Team Providers Care Surveillance Systems Analyst Name Role Phone David Keller Primary Care Provider Raquel Tapia Unavailable [phone] Janis Herr Unavailable [phone] Allergies Allergen (clinical drug ingredient) Drug/Non Drug Allergy documented on EMR Reaction Allergy Type Onset Date Status apremilast Otezla Unknown Drug Allergy Active Reason For Referral No Information Medications Medication SIG (Take, Route, Frequency, Duration) Notes Start Date End Date Status Levothyroxine Sodium 25 MCG TAKE 1 TABLE T BY MOUTH DAILY Oral; Duration: 30 Days Active Multivitamin Active Tremfya Active Ibuprofen 600 MG Oral; Duration: 10 Days Not-Taking hydrOXYzine HCl 10 MG Oral; Duration: 6 Days Not-Taking Cyclobenzaprine HCl 5 MG TAKE 1 TABLET B Y MOUTH THREE TIMES DAILY NEEDED FOR MUSCLE SPASM Oral; Duration: 10 Days Not-Taking Physical Therapy . . . 2-3x/week; Duration: 3-4 weeks Not-Taking Lucama 10-325 MG Orally PRN Not -Taking Piroxicam 20 MG TAKE 1 CAPSULE BY MOUTH EVERY DAY WITH FOOD; Duration: 30 Not-Taking Immunizations Vaccine Route Administration Date Status Comme nts Influenza Unknown 10/06/2024 Refused Social History Tobacco Use: Social History Observation [...] Status Risk Notes Problem Plantar fascial fibromatosis (13910482) Plantar fascial fibromatosis (M72.2) Active confirmed Problem Plantar wart (50323950) Plantar wart (B07.0) Active confirmed Vital Signs Blood pressure diastolic 75 mm Hg 01/29/2025 Height 6ft in 01/29/2025 Blood pressure systolic 123 mm Hg 01/29/2025 Weight 200 lbs 01/29/2025 BMI 27.12 kg/m2 01/29/2025 Procedures Procedure Date Ordered Date Performed Result Body Sit e 84267-Yajd Destruction, 1-14 01/29/2025 N/A Encounters Encounter Location Date Provider Diagnosis Surgery [facility] ([facility]) [address] [place] [address] 10/01/2024 Raquel Perica [address] [address] 03/10/2024 Raquel Perica Plantar fascial fibromatosis M72.2 ; Pain of left heel M79.672 and Pain of right heel M79.[address] [address] 09/18/2024 Raquel Perica Plantar fascial fibromatosis M72.2 and Pain of right heel M79.[address] [address] 10/06/2024 Raquel Perica Postoperative visit Z48.89 and Plantar fascial fibromatosis M72.[address] [address] 10/27/2024 Raquel Perica Postoperative visit Z48.89 and Plantar fascial fibromatosis M72.2 [facility] [address] [address] 12/17/2024 Raquel Cadea Postoperative visit Z48.89 and Plantar fascial fibromatosis M72.2 [facility] [address] [address] 01/29/2025 Janis Herr Right foot pain M79.671 and Plantar wart B07.0 [facility] [address] [address] 03/10/2024 Raquel Perica [facility] [address] [address] 03/26/2024 Raquel Perica [facility] [address] [address] 09/05/2024 Raquel Perica [facility] [address] [address] 10/02/2024 Raquel Perica [facility] [address] [address] 10/06/2024 Raquel Perica [facility] [address] [address] 10/27/2024 Raquel Perica [facility] [address] [address] 11/12/2024 Raquel Cadea Assessments Encounter Date Diagnosis (ICD Code) Assessment Notes Treatment Notes Treatment Clinical Notes Section Notes 03/10/2024 Plantar fascial fibromatosis (ICD-10 - M72.2) 09/18/2024 Plantar fascial fibromatosis (ICD-10 - M72.2) 09/18/2024 Pain of right heel (ICD-10 - M79.671) 10/06/2024 Plantar fascial fibromatosis (ICD-10 - M72.2) 10/06/2024 Postoperative visit (ICD-10 - Z48.89) 10/27/2024 Plantar fascial fibromatosis (ICD-10 - M72.2) 10/27/2024 Postoperative visit (ICD-10 - Z48.89) 12/17/2024 Postoperative visit (ICD-10 - Z48.89) 01/29/2025 Right foot pain (ICD-10 - M79.671) 01/29/2025 Plantar wart (ICD-10 - B07.0) 12/17/2024 Plantar fascial fibromatosis (ICD-10 - M72.2) 03/10/2024 Pain of left heel (ICD-10 - M79.672) 03/10/2024 Pain of right heel (ICD-10 - M79.671) Plan Of Treatment Pending Test Test Name Order Date X ray : Foot, left 3V 05/14/2018 X ray : Foot, left 3V 06/13/2022 X ray : Foot, right 3V 06/13/2022 [id number] Destruction, 1-14 01/29/2025 [id number] TENDON SHEATH/LIGAMENT 0 11/01/2023 Next Appt Details Provider Name:Janis Howe saranya, 02/16/2025 10:15:00 AM, [address] [place] [address], [phone], Insurance Providers Payer Name Payer Address Payer Phone Subscriber Number Group Number Insured Name Patient Relationship to Insured Coverage Start Date Coverage End Date [facility] [address] [place], [place] [id number] Michael Spears Self - patient is the insured Medical (General) History Medical History History ICD Code Back,Hip,and Knee pain Headaches/Migraines Psoriasis Chicken pox Anxiety Arthritis Depression Lyme disease Neuropathy Psoriasis/eczema Sciatica Surgical History Surgery Date(Month/Year) skull 08/23/1993 back fusion 2000 Back Surgery 2000,04/11,12/11 carpal tunnel surgery 12/2023, 10/2024 [place] Plantar Fasiiotomy Right 10/01/24
--- OUTSIDE RECORDS SUMMARY | 2025-02-05 19:25 | XMS_ITS | Clinical Summary ---
Author Organization [facility] Address [address] [place] [address] Care Team Providers Care Healthcare Educator Name Role Phone Derrick Vinson MD Primary Care Provider [phone] Social History Tobacco Use Types Packs/Day Years [...] age to complete this topic Care Teams Healthcare Educator Relationship Specialty Start Date End Date Derrick Vinson MD [address] [place] [address] PCP - General Family Medicine 04/01/20
== END 2025-02-05 15:42 | disposition home or self-care (01) ==
LOC: HO.LAB 15:41
PROVIDERS: PCP Physician Assistant Medical; Visit Provider Physician Assistant Medical
DX: Z00.00 Encounter for general adult medical examination without abnormal findings (principal); Z13.29 Encounter for screening for other suspected endocrine disorder
CPT/HCPCS: 36415; 84439; 84443

== ENCOUNTER 2025-03-26 15:39 | Outpatient (REF) | payer BC, SELFPAY ==
--- OUTSIDE RECORDS SUMMARY | 2024-10-01 05:45 | XMS_ITS ---
Author Organization [facility] Address [address] [place] [address] Care Team Providers Care Safety Council Director Name Role Phone David Keller Primary Care Provider Raquel Tapia [phone] Encounters Encounter Location Date Provider Diagnosis Surgery [facility] ([facility]/[address] [address] 10/01/2024 Raquel Tapia Plan Of Treatment No Information Progress Notes * Michael STACK LDOB:[birth year] (50 yo M)Acc No.[id number]:10/01/2024 Patient: Michael BABIN Provider: Kera Tapia DPM :1975 A ge:49 Y S ex:Male Date:10/01/2024 Address:[address] [place], [place] [phone] Pcp:David Keller * Images: * The named appointment provid er may or may not be the originator of this progress note, and it is not deemed complete until electronically signed by the appointment provider. Sign off status: Pending * Provider: Kera Tapia DPM Date: 0 10/01/2024 Generated for Melanie wasserman/Moreno/eTransmitting on: 1 05/27/2024 09:49 PM EST
--- OUTSIDE RECORDS SUMMARY | 2024-10-13 08:45 | XMS_ITS ---
Author Organization [facility] Address [address] [place] [address] Care Team Providers Care Test Rack Operator Name Role Phone David Keller Primary Care Provider Raquel Hansen [phone] REASON FOR VISIT CX PER DR HANSEN Encounters Encounter Location Date Provider Diagnosis [address] [address] 10/13/2024 Raquel Hansen Plan Of Treatment No Information Progress Notes * Michael STACK LDOB:[birth year] (50 yo M)Acc No.[id number]:10/13/2024 PROGRESS NOTES Patient: Michael BABIN Provider: Kera Hansen DPM :1975 A ge:49 Y S ex:Male Date:10/13/2024 Address:[address] [place], [place] [phone] Pcp:aDvid Keller Subjective: * Chief Complaints: * 1 [...] 10/13/2024 Generated for Melanie wasserman/Moreno/Luissmitting on: 1 05/27/2024 09:47 PM EST
--- OUTSIDE RECORDS SUMMARY | 2025-03-26 21:47 | XMS_ITS | Clinical Summary ---
Author Organization [facility] Prior to 09/20/[address] [place] [address] Care Team Providers Care Auto Engine Mechanic Name Role Phone Derrick Vinson MD Primary [...] age to complete this topic Care Teams Auto Engine Mechanic Relationship Specialty Start Date End Date Derrick Vinson MD [address] [place] [address] PCP - General Family Medicine 04/01/20
--- OUTSIDE RECORDS SUMMARY | 2025-03-26 21:48 | XMS_ITS | Encounter Summary ---
Author Organization [facility] Address [address] [place] [address] Phone Care Team Providers Care Complaints Coordinator Name Role Phone Derrick Vinson MD Primary Care Provider + Encounter Details Date Type Department Care Team (Late st Contact Info) Description 02/26/2020 Procedure Pass [facility], [address] [address] Social History Tobacco Use Types Packs/Day Years [...] on filedocumented in this encounter Care Teams Complaints Coordinator Relationship Specialty Start Date End Date Derrick Vinson MD [address] [place] [address] PCP - General Family Medicine 02/26/20 documented as of this encounter Additional Source Comments The information contained in this document represents components of the legal health record. It is not the complete legal health record.[facility]
--- OUTSIDE RECORDS SUMMARY | 2025-03-26 21:49 | XMS_ITS | Clinical Summary ---
Author Organization [facility] Address [address] [address] Phone Care Team Providers Care It Help Desk Manager Name Role Phone Derrick Vinson MD [...] topic Medical Devices Not on file Insurance [facility] NON NSPG PCP [place] [employer] [facility] NON NSPG PCP [place] [employer] [facility] NON NSPG PCP S[employer] NON NSPG PCP [place] NON NSPG PCP [employer] NON NSPG PCP [facility] [facility] NON NSPG PCP [place] [facility] NON NSPG PCP [facility] [employer] Care Teams It Help Desk Manager Relationship Specialty Start Date End Date Derrick Vinson MD [address] [place] [address] PCP - General Family Medicine 02/26/20 Additional Source Comments The information contained in this document represents components of the legal health record. It is not the complete legal health record.[facility]
--- OUTSIDE RECORDS SUMMARY | 2025-03-26 21:49 | XMS_ITS | Encounter Summary ---
Author Organization [facility] Address [address] [place] [address] Phone Care Team Providers Care Windows Deployment Technician Name Role Phone Derrick Vinson MD Primary Care Provider + Reason for Referral * MRI/CAT Scan - Closed Specialty Diagnoses / Procedures Referred By Tutu gallardo Referred To Contact Radiology Diagnoses Lumbar radiculopathy Procedures MRI Lumbar Spine Joshua Rodríguez DO Phone: tel: fax: mailto:[email or web address] Referral ID Status Reason Start Date Expiration Date Visits Re quested Visits Authorized [id number] Closed 02/26/2020 08/24/2020 1 1 Encounter Details Date Type Department Care Team (Latest Contact Info) Description 02/26/2020 Transcribe Orders Virtual Department [address] [place] [address] Joshua Rodríguez DO [address] [place] [address] [email or web address] Lumbar radiculopathy (Primary Dx) Social History Tobacco [...] significant interval changes are identified. POS - [id number] Narrative 03/09/2020 2:24 PM EST TECHNIQUE: Exam [...] A minimal chronic grade 1 retrolisthesis of Y7lbidgmwa to L5 is unchanged. L5-S1: No focal [...] other significant intervalchanges are identified. POS - [id number] Joshua Rodríguez DO IMG MR XSPECIALTY Final Resu lt documented in this encounter Visit Diagnoses Diagnosis Lumbar radiculopathy- Primary Thoracic or lumbosacral neuritis or radiculitis, unspecified Lumbar radiculopathy Thoracic or lumbosacral neuritis or radiculitis, unspecified documented in this encounter Care Teams Windows Deployment Technician Relationship Specialty Start Date End Date Derrick Vinson MD [address] [place] [address] PCP - General Family Medicine 02/26/20 documented as of this encounter Additional Source Comments The information contained in this document represents components of the legal health record. It is not the complete legal health record.[facility]
--- OUTSIDE RECORDS SUMMARY | 2025-03-26 21:50 | XMS_ITS | Patient Health Record ---
Author Organization [facility] Address [address] [place] [address] Care Team Providers Care Natural History Collections Curator Name Role Phone David Keller Primary Care Provider [phone] Raquel Tapia Unavailable [phone] Janis Herr Unavailable [phone] Allergies Allergen (clinical drug ingredient) Drug/Non Drug Allergy documented on EMR Reaction Allergy Type Onset Date Status apremilast Otezla Unknown Drug Allergy Active Reason For Referral No Information Medications Medication SIG (Take, Route, Frequency, Duration) Notes Start Date End Date Status [place]ner 10-325 MG Orally PRN Not -Taking Piroxicam 20 MG TAKE 1 CAPSULE BY MOUTH EVERY DAY WITH FOOD; Duration: 30 Not-Taking Ibuprofen 600 MG Oral; Duration: 10 Days Not-Taking hydrOXYzine HCl 10 MG Oral; Duration: 6 Days Not-Taking Cyclobenzaprine HCl 5 MG TAKE 1 TABLET B Y MOUTH THREE TIMES DAILY NEEDED FOR MUSCLE SPASM Oral; Duration: 10 Days Not-Taking Physical Therapy . . . 2-3x/week; Duration: 3-4 weeks Not-Taking Levothyroxine Sodium 25 MCG TAKE 1 TABLE T BY MOUTH DAILY Oral; Duration: 30 Days Active Multivitamin Active Tremfya Active Immunizations Vaccine Route Administration Date Status Comme [...] Status Risk Notes Problem Plantar fascial fibromatosis (55502031) Plantar fascial fibromatosis (M72.2) Active confirmed Problem Plantar wart (88902558) Plantar wart (B07.0) Active confirmed Vital Signs Blood pressure diastolic 76 mm Hg 02/16/2025 Height 6ft in 02/16/2025 Blood pressure systolic 121 mm Hg 02/16/2025 Weight 200 lbs 02/16/2025 BMI 27.12 kg/m2 02/16/2025 Procedures Procedure Date Ordered Date Performed Result Body Sit e 12359-Ztpw Destruction, 1-14 01/29/2025 N/A Encounters Encounter Location Date Provider Diagnosis Surgery [facility] [address] [place] [address] 10/01/2024 [facility] [address] 09/18/2024 Raquel Perica Plantar fascial fibromatosis M72.2 and Pain of right heel M79.[address] [facility] [address] 10/06/2024 Raquel Perica Postoperative visit Z48.89 and Plantar fascial fibromatosis M72.[address] [address] 10/27/2024 Raquel Perica Postoperative visit Z48.89 and Plantar fascial fibromatosis M72.[address] [address] 12/17/2024 Raquel Perica Postoperative visit Z48.89 and Plantar fascial fibromatosis M72.[address] [facility] [place] [address] 01/29/2025 Janis Herr Right foot pain M79.671 and Plantar wart B07.0 [facility] [address] [address] 02/16/2025 Janis Herr Right foot pain M79.671 ; Plantar wart B07.0 ; Foreign body (FB) in soft tissue M79.5 and 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 [facility] [address] [address] 02/16/2025 Raquel Perica [facility] [address] [address] 03/26/2024 Raquel Perica [facility] [address] [address] 09/05/2024 Raquel Perica [facility] [address] [address] 10/02/2024 Raquel Perica [facility] [address] [address] 10/06/2024 Raquel Perica [facility] [address] [address] 10/27/2024 Raquel Perica [facility] [address] 11/12/2024 Raquel Perica [facility] Encounter Date Diagnosis (ICD Code) Assessment Notes Treatment Notes Treatment Clinical Notes Section Notes 09/18/2024 Plantar fascial fibromatosis (ICD-10 - M72.2) 09/18/2024 Pain of right heel (ICD-10 - M79.671) 10/06/2024 Plantar fascial fibromatosis (ICD-10 - M72.2) 10/06/2024 Postoperative visit (ICD-10 - Z48.89) 10/27/2024 Plantar fascial fibromatosis (ICD-10 - M72.2) 10/27/2024 Postoperative visit (ICD-10 - Z48.89) 12/17/2024 Postoperative visit (ICD-10 - Z48.89) 01/29/2025 Right foot pain (ICD-10 - M79.671) 02/16/2025 Right foot pain (ICD-10 - M79.671) 02/16/2025 Foreign body (FB) in soft tissue (ICD-10 - M79.5) 02/16/2025 Plantar wart (ICD-10 - B07.0) 01/29/2025 Plantar wart (ICD-10 - B07.0) 12/17/2024 Plantar fascial fibromatosis (ICD-10 - M72.2) 02/16/2025 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) Plan Of Treatment Pending Test Test Name Order Date Ultrasound : Leg, right 02/16/2025 X ray : Foot, left 3V 05/14/2018 X ray : Foot, left 3V 06/13/2022 X ray : Foot, right 3V 06/13/2022 [id number]-[id number] Destruction, 1-14 01/29/202599983,O2511-CTF TENDON SHEATH/LIGAMENT 0 11/01/2023 Insurance Providers Payer Name Payer Address Payer Phone Subscriber Number Group Number Insured Name Patient Relationship to Insured Coverage Start Date Coverage End Date [facility] All Others [address] [place] [address] [id number] Michael Spears Self - patient is the insured Medical (General) History Medical History History ICD Code Back,Hip,and Knee pain Headaches/Migraines Psoriasis Chicken pox Anxiety Arthritis Depression Lyme disease Neuropathy Psoriasis/eczema Sciatica Surgical History Surgery Date(Month/Year) skull 08/23/1993 back fusion 2000 Back Surgery 2000,04/11,12/11 carpal tunnel surgery 12/2023, 10/2024 [place] Plantar Fasiiotomy Right 10/01/24
[2025-03-28 21:48] LABS: TS Negative Control Passed; TS Panel A 0; TS Panel B 0; TS Positive Control Passed; TSpotTB Negative (Negative)
== END 2025-03-26 15:40 | disposition home or self-care (01) ==
LOC: HO.LAB 15:39
PROVIDERS: PCP Physician Assistant Medical; Visit Provider Dermatology
DX: Z11.1 Encounter for screening for respiratory tuberculosis (principal); L40.0 Psoriasis vulgaris
CPT/HCPCS: 36415; 86481

== ENCOUNTER 2025-03-27 15:28 | Outpatient (REF) | payer BC, SELFPAY ==
--- OUTSIDE RECORDS SUMMARY | 2024-10-01 05:45 | XMS_ITS ---
Author Organization [facility] Address [address] [place] [address] Care Team Providers Care Owner Professional Engineer Name Role Phone David Keller Primary Care Provider [phone] Raquel Tapia [phone] Encounters Encounter Location Date Provider Diagnosis Surgery [facility] ([facility]/[address] [address] 10/01/2024 Raquel Tapia Plan Of Treatment No Information Progress Notes * Michael STACK LDOB:[birth year] (50 yo M)Acc No.[id number]:10/01/2024 Patient: Michael BABIN Provider: Kera Tapia DPM :1975 A ge:49 Y S ex:Male Date:10/01/2024 Address:[address] [place], [place] [id number] Pcp:David Keller * Images: * The named appointment provid er may or may not be the originator of this progress note, and it is not deemed complete until electronically signed by the appointment provider. Sign off status: Pending * Provider: Kera Tapia DPM Date: 0 10/01/2024 Generated for Melanie wasserman/Moreno/eTransmitting on: 1 05/28/2024 07:27 PM EST
--- OUTSIDE RECORDS SUMMARY | 2024-10-13 08:45 | XMS_ITS ---
Author Organization [facility] Address [address] [place] [address] Care Team Providers Care Fuse Spooler Name Role Phone David Keller Primary Care Provider [phone] Raquel Hansen [phone] REASON FOR VISIT CX PER DR HANSEN Encounters Encounter Location Date Provider Diagnosis [address] [address] 10/13/2024 Raquel Hansen Plan Of Treatment No Information Progress Notes * Michael STACK LDOB:[birth year] (50 yo M)Acc No.[id number]:10/13/2024 PROGRESS NOTES Patient: Michael BABIN Provider: Kera Hansen DPM :1975 A ge:49 Y S ex:Male Date:10/13/2024 Address:[address] [place], [place] [phone] Pcp:David Keller Subjective: * Chief Complaints: * [address] HANSEN. * Medical History: Objective: * Vitals: Assessment: Plan: * Treatment: * Images: * The named appointment provid er may or may not be the originator of this progress note, and it is not deemed complete until electronically signed by the appointment provider. Sign off status: Pending * Provider: Kera Hansen DPM Date: 0 10/13/2024 Generated for Melanie wasserman/Moreno/Luissmitting on: 1 05/28/2024 07:27 PM EST
--- NOTE | ~2025-03-27 | US_ITS ---
Examination: US Extremity Nonvas Limited Rt Technique: Grayscale and color Doppler imaging was performed in the mid lateral right thigh INDICATION: Thigh lump, right Prior: None FINDINGS: Just deep to the dermis in the subcutaneous layer, there is a mildly echogenic heterogeneous region measuring 18 x 5 x 17 mm without significant flow on color Doppler. There is no increased through transmission or shadowing posterior to the mass. No other abnormality is detected. US/US Extremity Nonvas Limited RT IMPRESSION: Suspected subtle mass in the superficial subcutaneous soft tissues of the lateral right mid thigh could represent a lipoma, however ultrasound characterization of musculoskeletal masses is nonspecific. Electronically signed by: Librado Bolton MD 03/27/2025 03:48 PM [facility]
--- OUTSIDE RECORDS SUMMARY | 2025-03-27 19:27 | XMS_ITS | Encounter Summary ---
Author Organization [facility] Address [address] [place] [address] Phone Care Team Providers Care Outboard System Operator Name Role Phone Derrick Vinson MD Primary Care Provider + Encounter Details Date Type Department Care Team (Late st Contact Info) Description 03/04/2020 Ancillary Orders [facility],Outside Imaging [address] [place] [address] System, Provider Not In, [place] [address] Social History Tobacco Use Types Packs/Day Years [...] on filedocumented in this encounter Care Teams Outboard System Operator Relationship Specialty Start Date End Date Derrick Vinson MD [address] [place] [address] PCP - General Family Medicine 02/26/20 documented as of this encounter Additional Source Comments The information contained in this document represents components of the legal health record. It is not the complete legal health record.[facility]
--- OUTSIDE RECORDS SUMMARY | 2025-03-27 19:27 | XMS_ITS | Encounter Summary ---
Author Organization [facility] Address [address] [place] [address] Phone Care Team Providers Care Director Counseling Bureau Name Role Phone Derrick Vinson MD Primary Care Provider + Reason for Referral * MRI/CAT Scan - Closed Specialty Diagnoses / Procedures Referred By Tutu gallardo Referred To Contact Radiology Diagnoses Lumbar radiculopathy Procedures MRI Lumbar Spine Joshua Rodríguez DO Phone: tel: fax: mailto:[email or web address] Referral ID Status Reason Start Date Expiration Date Visits Re quested Visits Authorized [id number] Closed 02/26/2020 08/24/2020 1 1 Encounter Details Date Type Department Care Team (Latest Contact Info) Description 02/26/2020 Transcribe Orders Virtual Department [address] [place] [address] Joshua Rodríguez DO [address] [place] [address] [email or web address] Lumbar radiculopathy (Primary Dx) Social History Tobacco [...] significant interval changes are identified. POS - [id number] Narrative 03/09/2020 2:24 PM EST TECHNIQUE: Exam [...] A minimal chronic grade 1 retrolisthesis of B9mxxtedyr to L5 is unchanged. L5-S1: No focal [...] other significant intervalchanges are identified. POS - [id number] Joshua Rodríguez DO IMG MR XSPECIALTY Final Resu lt documented in this encounter Visit Diagnoses Diagnosis Lumbar radiculopathy- Primary Thoracic or lumbosacral neuritis or radiculitis, unspecified Lumbar radiculopathy Thoracic or lumbosacral neuritis or radiculitis, unspecified documented in this encounter Care Teams Director Counseling Bureau Relationship Specialty Start Date End Date Derrick Vinson MD [address] [place] [address] PCP - General Family Medicine 02/26/20 documented as of this encounter Additional Source Comments The information contained in this document represents components of the legal health record. It is not the complete legal health record.[facility]
--- OUTSIDE RECORDS SUMMARY | 2025-03-27 19:27 | XMS_ITS | Encounter Summary ---
Author Organization [facility] Address [address] [place] [address] Phone Care Team Providers Care Brim Ironer Hand Name Role Phone Derrick Vinson MD Primary Care Provider + Encounter Details Date Type Department Care Team (Late st Contact Info) Description 02/26/2020 Procedure Pass [facility], [address] [address] Social History Tobacco Use Types Packs/Day Years [...] on filedocumented in this encounter Care Teams Brim Ironer Hand Relationship Specialty Start Date End Date Derrick Vinson MD [address] [place] [address] PCP - General Family Medicine 02/26/20 documented as of this encounter Additional Source Comments The information contained in this document represents components of the legal health record. It is not the complete legal health record.[facility]
--- OUTSIDE RECORDS SUMMARY | 2025-03-27 19:27 | XMS_ITS | Clinical Summary ---
Author Organization [facility] Prior to 09/20/[address] [place] [address] Care Team Providers Care Crab Steamer Name Role Phone Derrick Vinson MD Primary Care Provider [phone] Social History Tobacco Use Types Packs/Day Years [...] age to complete this topic Care Teams Crab Steamer Relationship Specialty Start Date End Date Derrick Vinson MD [address] [place] [address] PCP - General Family Medicine 04/01/20
--- OUTSIDE RECORDS SUMMARY | 2025-03-27 19:28 | XMS_ITS | Clinical Summary ---
Author Organization [facility] Address [address] [address] Phone Care Team Providers Care Vice President Education Name Role Phone Derrick Vinson MD Primary [...] topic Medical Devices Not on file Insurance [facility] [place] [facility] NON NSPG PCP [place] [employer] NON NSPG PCP [place] [employer] [facility] NON NSPG PCP S[employer] [facility] NON NSPG PCP S[place] NON NSPG PCP [place] [employer] NON NSPG PCP S[employer] NON NSPG PCP [employer] [employer] NON NSPG PCP [facility] Care Teams Vice President Education Relationship Specialty Start Date End Date Derrick Vinson MD [address] [place] [address] PCP - General Family Medicine 02/26/20 Additional Source Comments The information contained in this document represents components of the legal health record. It is not the complete legal health record.[facility]
--- OUTSIDE RECORDS SUMMARY | 2025-03-27 19:28 | XMS_ITS | Patient Health Record ---
[facility] Address [address] [place] [address] Care Team Providers Care Youth Nutritional Monitor Name Role Phone David Keller Primary Care Provider [phone] Raquel Tapia Unavailable [phone] Janis Hrer Unavailable [phone] Allergies Allergen (clinical drug ingredient) Drug/Non Drug Allergy documented on EMR Reaction Allergy Type Onset Date Status apremilast Otezla Unknown Drug Allergy Active Reason For Referral No Information Medications Medication SIG (Take, Route, Frequency, Duration) Notes Start Date End Date Status [place] 10-325 MG Orally PRN Not -Taking Piroxicam [...] Status Risk Notes Problem Plantar fascial fibromatosis (98899795) Plantar fascial fibromatosis (M72.2) Active confirmed Problem Plantar wart (03813907) Plantar wart (B07.0) Active confirmed Vital Signs Blood pressure diastolic 76 mm Hg 02/16/2025 Height 6ft in 02/16/2025 Blood pressure systolic 121 mm Hg 02/16/2025 Weight 200 lbs 02/16/2025 BMI 27.12 kg/m2 02/16/2025 Procedures Procedure Date Ordered Date Performed Result Body Sit e 82649-Rvxp Destruction, 1-14 01/29/2025 N/A Encounters Encounter Location Date Provider Diagnosis Surgery [place] ([facility]) [address] [place] [address] 10/01/2024 [facility] [address] 09/18/2024 Raquel Perica Plantar fascial fibromatosis M72.2 and Pain of right heel M79.671 [facility] [address] 10/06/2024 Raquel Perica Postoperative visit Z48.89 and Plantar fascial fibromatosis M72.[address] [address] 10/27/2024 Raquel Perica Postoperative visit Z48.89 and Plantar fascial fibromatosis M72.[address] [address] 12/17/2024 Raquel Perica Postoperative visit Z48.89 and Plantar fascial fibromatosis M72.[address] [facility] [place] [address] 01/29/2025 Janis Herr Right foot pain M79.671 and Plantar wart B07.[address] [facility] [address] 02/16/2025 Janis Herr Right foot pain M79.671 ; Plantar wart B07.0 ; Foreign body (FB) in soft tissue M79.5 and 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 [facility] [address] 02/16/2025 Raquel Perica [facility] [address] 09/05/2024 Raquel Perica [facility] [address] 10/02/2024 [facility] [address] 10/06/2024 Raquel Perica [facility] [address] 10/27/2024 Raquel Perica [facility] [address] 11/12/2024 Raquel Tapia [facility] Encounter Date Diagnosis (ICD Code) Assessment Notes [...] X ray : Foot, right 3V 06/13/2022 [id number] Destruction, 1-14 01/29/202516471,Q8451-AML TENDON SHEATH/LIGAMENT 0 11/01/2023 Insurance Providers Payer Name Payer Address Payer Phone Subscriber Number Group Number Insured Name Patient Relationship to Insured Coverage Start Date Coverage End Date [facility] All Others [address] [place] [address] [phone] [id number] Michael Spears Self - patient is the insured Medical (General) History Medical History History ICD Code Back,Hip,and Knee pain Headaches/Migraines Psoriasis Chicken pox Anxiety Arthritis Depression Lyme disease Neuropathy Psoriasis/eczema Sciatica Surgical History Surgery Date(Month/Year) skull 08/23/1993 back fusion 2000 Back Surgery 2000,04/11,12/11 carpal tunnel surgery 12/2023, 10/2024 [place] Plantar Fasiiotomy Right 10/01/24
== END 2025-03-27 15:29 | disposition home or self-care (01) ==
LOC: HO.HMGCX 15:28
PROVIDERS: PCP Physician Assistant Medical; Visit Provider Physician Assistant Medical
DX: L72.9 Follicular cyst of the skin and subcutaneous tissue, unspecified (principal)
CPT/HCPCS: 76882

== ENCOUNTER → 2025-03-27 15:30 | Outpatient (BNV) | payer BC, SELFPAY | PROVIDERS: PCP Physician Assistant Medical; Visit Provider Radiology Diagnostic Radiology | DX: L72.9 Follicular cyst of the skin and subcutaneous tissue, unspecified (principal) | CPT/HCPCS: 76882 ==